=== PATIENT | male | born 1935 | race Caucasian/White ===

== ENCOUNTER 2016-09-21 17:39 | Inpatient (IN) | payer MEDICARE ==
[2016-09-21] MEDS ORDERED: MECLIZINE 25 MG TAB PO STA (18:06)
--- NOTE | 2016-09-21 18:10 | ED ---
General Adult HPI - General Chief complaint: Dizziness Stated complaint: Body Numbness Time Seen by Provider: 09/21/16 17:50 Source: patient, RN notes reviewed Mode of arrival: wheelchair Limitations: no limitations - History of Present Illness Initial comments: This is an 81-year-old male presents emergency department with no significant past medical history. Patient states he was at a restaurant eating and he became very dizzy the room was spinning around in the fall right out of his chair he had grabbed on so he wouldn't fall. Patient states he said his head down on the table. Patient states he has some pressures had though he has had pressure in his head for over a year now. Patient states the pressure seemed a little worse at the time. Patient states became very nauseated with the spinning and eventually vomited times one. Patient states currently he feels better but he still feels a little dizzy. Patient states earlier movement made the dizziness much worse. Patient denies any numbness or weakness. Patient denies any palpitation. Patient denies chest pain. Patient denies difficult breathing or shortness of breath. Patient denies abdominal pain patient denies nausea vomiting or diarrhea. Patient denies any recent fever or chills. - Related Data Home Medications Medication Instructions Recorded Confirmed Omeprazole [Omeprazole] 20 mg PO DAILY 03/24/15 09/21/16 Travoprost [Travatan Z 0.004%] 1 drop BOTH EYES HS 09/21/16 09/21/16 prednisoLONE ACETATE [Prednisolone 1 drop BOTH EYES MO 09/21/16 09/21/16 Acetate] Allergies Allergy/AdvReac Type Severity Reaction Status Date / Time No Known Allergies Allergy Verified 09/21/16 18:22 Review of Systems ROS Statement: Those systems with pertinent positive or pertinent negative responses have been documented in the HPI. ROS Other: All systems not noted in ROS Statement are negative. Past Medical History Past Medical History: GERD/Reflux History of Any Multi-Drug Resistant Organisms: None Reported Past Surgical History: Bowel Resection, Cholecystectomy, Prostate Surgery Past Psychological History: No Psychological Hx Reported Smoking Status: Former smoker Past Alcohol Use History: None Reported Past Drug Use History: None Reported General Exam - General Exam Comments Initial Comments: GENERAL: Patient is well-developed and well-nourished. Patient is nontoxic and well- hydrated and is in mild distress. ENT: Neck is soft and supple. No significant lymphadenopathy is noted. Oropharynx is clear. Moist mucous membranes. Neck has full range of motion without eliciting any pain. EYES: The sclera were anicteric and conjunctiva were pink and moist. Extraocular movements were intact and pupils were equal round and reactive to light. Eyelids were unremarkable. PULMONARY: Unlabored respirations. Good breath sounds bilaterally. No audible rales rhonchi or wheezing was noted. CARDIOVASCULAR: Patient is bradycardic and irregular. ABDOMEN: Soft and nontender with normal bowel sounds. No palpable organomegaly was noted. There is no palpable pulsatile mass. SKIN: Skin is clear with no lesions or rashes and otherwise unremarkable. NEUROLOGIC: Patient is alert and oriented x3. Cranial nerves II through XII are grossly intact. Motor and sensory are also intact. Normal speech, volume and content. Symmetrical smile. Cerebellar exam grossly intact. MUSCULOSKELETAL: Normal extremities with adequate strength and full range of motion. No lower extremity swelling or edema. No calf tenderness. LYMPHATICS: No significant lymphadenopathy is noted PSYCHIATRIC: Normal psychiatric evaluation. Normal interpersonal interactions appears functionally intact in deals appropriately with others. No signs of depression. No signs of anxiety. Limitations: no limitations Course Vital Signs 09/21/16 09/21/16 09/21/16 17:45 19:02 19:10 Temperature 97.2 F L 98.6 F Pulse Rate 70 69 62 Respiratory 20 16 18 Rate Blood Pressure 114/63 121/76 128/70 O2 Sat by Pulse 98 98 97 Oximetry Medical Decision Making - Medical Decision Making EKG shows atrial fibrillation at a rate of 57 bpm QRS is 74 Q-T intervals is 418 QTC is 406. Patient's EKG shows no ST segment elevation or depression or T wave abnormalities are noted Chest x-ray and CT of the brain showed no acute normalities. Patient hasn't had a history of atrial fibrillation before. - Lab Data Result diagrams: 09/21/16 17:15 09/21/16 17:15 Lab Results 09/21/16 09/21/16 09/21/16 Range/Units 17:15 17:15 17:15 WBC 18.9 H (3.8-10.6) k/uL RBC 5.00 (4.30-5.90) m/uL Hgb 14.8 (13.0-17.5) gm/dL Hct 47.0 (39.0-53.0) % MCV 94.1 (80.0-100.0) fL MCH 29.6 (25.0-35.0) pg MCHC 31.5 (31.0-37.0) g/dL RDW 13.4 (11.5-15.5) % Plt Count 124 L (150-450) k/uL Neutrophils % (Manual) 29.0 % Lymphocytes % (Manual) 70.0 % Monocytes % (Manual) 1.0 % Neutrophils # (Manual) 5.5 (1.3-7.7) k/uL Lymphocytes # (Manual) 13.2 H (1.0-4.8) k/uL Monocytes # (Manual) 0.2 (0-1.0) k/uL Nucleated RBCs 0 (0-0) /100 WBC Manual Slide Review Performed RBC Morphology Normal PT (9.0-12.0) sec INR (<1.1) APTT (22.0-30.0) sec Sodium 139 (137-145) mmol/L Potassium 4.5 (3.5-5.1) mmol/L Chloride 105 (98-107) mmol/L Carbon Dioxide 26 (22-30) mmol/L Anion Gap 8 mmol/L BUN 14 (9-20) mg/dL Creatinine 0.88 (0.66-1.25) mg/dL Est GFR (MDRD) Af Amer >60 (>60 ml/min/1.73 sqM) Est GFR (MDRD) Non-Af >60 (>60 ml/min/1.73 sqM) Glucose 125 H (74-99) mg/dL Calcium 9.1 (8.4-10.2) mg/dL Magnesium 2.1 (1.6-2.3) mg/dL Total Bilirubin 1.0 (0.2-1.3) mg/dL AST 35 (17-59) U/L ALT 32 (21-72) U/L Alkaline Phosphatase 82 (38-126) U/L Total Creatine Kinase 150 (55-170) U/L CK-MB (CK-2) 2.1 (0.0-2.4) ng/mL CK-MB (CK-2) Rel Index 1.4 Troponin I <0.012 (0.000-0.034) ng/mL Total Protein 6.1 L (6.3-8.2) g/dL Albumin 3.6 (3.5-5.0) g/dL Urine Color Urine Appearance (Clear) Urine pH (5.0-8.0) Ur Specific Hayes (1.001-1.035) Urine Protein (Negative) Urine Glucose (UA) (Negative) Urine Ketones (Negative) Urine Blood (Negative) Urine Nitrite (Negative) Urine Bilirubin (Negative) Urine Urobilinogen (<2.0) mg/dL Ur Leukocyte Esterase (Negative) 09/21/16 09/21/16 Range/Units 17:15 19:00 WBC (3.8-10.6) k/uL RBC (4.30-5.90) m/uL Hgb (13.0-17.5) gm/dL Hct (39.0-53.0) % MCV (80.0-100.0) fL MCH (25.0-35.0) pg MCHC (31.0-37.0) g/dL RDW (11.5-15.5) % Plt Count (150-450) k/uL Neutrophils % (Manual) % Lymphocytes % (Manual) % Monocytes % (Manual) % Neutrophils # (Manual) (1.3-7.7) k/uL Lymphocytes # (Manual) (1.0-4.8) k/uL Monocytes # (Manual) (0-1.0) k/uL Nucleated RBCs (0-0) /100 WBC Manual Slide Review RBC Morphology PT 11.7 (9.0-12.0) sec INR 1.2 (<1.1) APTT 23.8 (22.0-30.0) sec Sodium (137-145) mmol/L Potassium (3.5-5.1) mmol/L Chloride (98-107) mmol/L Carbon Dioxide (22-30) mmol/L Anion Gap mmol/L BUN (9-20) mg/dL Creatinine (0.66-1.25) mg/dL Est GFR (MDRD) Af Amer (>60 ml/min/1.73 sqM) Est GFR (MDRD) Non-Af (>60 ml/min/1.73 sqM) Glucose (74-99) mg/dL Calcium (8.4-10.2) mg/dL Magnesium (1.6-2.3) mg/dL Total Bilirubin (0.2-1.3) mg/dL AST (17-59) U/L ALT (21-72) U/L Alkaline Phosphatase (38-126) U/L Total Creatine Kinase (55-170) U/L CK-MB (CK-2) (0.0-2.4) ng/mL CK-MB (CK-2) Rel Index Troponin I (0.000-0.034) ng/mL Total Protein (6.3-8.2) g/dL Albumin (3.5-5.0) g/dL Urine Color Colorless Urine Appearance Clear (Clear) Urine pH 6.5 (5.0-8.0) Ur Specific Hayes 1.003 (1.001-1.035) Urine Protein Negative (Negative) Urine Glucose (UA) Negative (Negative) Urine Ketones Negative (Negative) Urine Blood Negative (Negative) Urine Nitrite Negative (Negative) Urine Bilirubin Negative (Negative) Urine Urobilinogen <2.0 (<2.0) mg/dL Ur Leukocyte Esterase Negative (Negative) Disposition Clinical Impression: Atrial fibrillation, Leukocytosis, Vertigo Disposition: ADMITTED IP TO THIS HOSP Referrals: Sahil Acosta MD [Primary Care Provider] - 1-2 days Time of Disposition: 20:14
[2016-09-21 18:36] LABS: CH 30.2; CHCM 32.3; HDW 2.74; HGB 14.8 gm/dL (13.0-17.5); MCH 29.6 pg (25.0-35.0); MCHC 31.5 g/dL (31.0-37.0); MCV 94.1 fL (80.0-100.0); Mean Platelet Volume 7.4; RDW 13.4 % (11.5-15.5); WBC 18.9 k/uL (3.8-10.6); WBC (Perox) 18.15
[2016-09-21 18:46] LABS: ALT 32 U/L (21-72); AST 35 U/L (17-59); Alkaline Phosphatase 82 U/L (38-126); Anion Gap 8 mmol/L; Blood Urea Nitrogen 14 mg/dL (9-20); Calcium 9.1 mg/dL (8.4-10.2); Carbon Dioxide 26 mmol/L (22-30); Chloride 105 mmol/L (98-107); Glucose 125 mg/dL (74-99); Magnesium 2.1 mg/dL (1.6-2.3); Non-African American GFR(MDRD) >60 (>60 ml/min/1.73 sqM); Potassium 4.5 mmol/L (3.5-5.1); Sodium 139 mmol/L (137-145); Total Protein 6.1 g/dL (6.3-8.2)
--- NOTE | 2016-09-21 18:55 | CT ---
EXAMINATION TYPE: CT brain wo con DATE OF EXAM: 09/21/2016 COMPARISON: 07/15/2014 HISTORY: Patient poor historian. Headache. CT DLP: 837.1 mGycm Automated exposure control for dose reduction was used. FINDINGS: Ventricles have normal size. There is no mass effect nor midline shift. There is no sign of intracran ial hemorrhage. The calvarium is intact. IMPRESSION: Negative unenhanced head CT scan. No change.
[2016-09-21 18:56] LABS: Creatine Kinase 150 U/L (55-170)
--- NOTE | 2016-09-21 18:56 | XR ---
EXAMINATION TYPE: XR chest 2V DATE OF EXAM: 09/21/2016 COMPARISON: NONE HISTORY: Chest pain TECHNIQUE: Frontal and lateral views of the chest are obtained. FINDINGS: Heart appears enlarged. There is no heart failure. Lungs are clear of infiltrate. Thoracic aorta is atheromatous. There are chest leads. There is no evidence of pleural effusion. IMPRESSION: Atheromatous aorta. No active cardiopulmonary disease.
[2016-09-21 18:58] LABS: INR 1.2 (<1.1); Partial Thromboplastin Time 23.8 sec (22.0-30.0); Prothrombin Time 11.7 sec (9.0-12.0)
[2016-09-21 19:02] LABS: Add Differential Manual Differential
[2016-09-21 19:04] LABS: Manual Review Performed; Nucleated Red Blood Cells 0 /100 WBC (0-0); RBC Morphology Normal; Total Cells Counted 100
[2016-09-21 19:08] LABS: Creatine Kinase MB 2.1 ng/mL (0.0-2.4); Troponin I <0.012 ng/mL (0.000-0.034)
[2016-09-21 19:28] LABS: Appearance,Urine Clear (Clear); Bilirubin,Urine Negative (Negative); Glucose,Urine (UA) Negative (Negative); Ketones,Urine Negative (Negative); Leukocyte Esterase,Urine Negative (Negative); Nitrite,Urine Negative (Negative); PH, Urine 6.5 (5.0-8.0); Protein,Urine Negative (Negative); Specific Gravity,Urine 1.003 (1.001-1.035); UA Billing (MACRO vs. MICRO) CHEM; Urobilinogen,Urine <2.0 mg/dL (<2.0)
[2016-09-21] MEDS ORDERED: SODIUM CHLORIDE 0.9% 1,000 ML IV ONE (20:43)
[2016-09-21 22:06] VITALS: BMI 21.8
[2016-09-21] MEDS ORDERED: ACETAMINOPHEN TAB 325 MG TAB PO PRN (23:19)
[2016-09-22] MEDS: PANTOPRAZOLE 40 MG TABLET PO SCH (06:20)
[2016-09-22 10:57] LABS: Cholesterol 103 mg/dL (<200); HDL Cholesterol 23 mg/dL (40-60); Triglycerides 54 mg/dL (<150)
--- NOTE | 2016-09-22 10:59 | US ---
EXAMINATION TYPE: US carotid duplex BILAT DATE OF EXAM: 09/22/2016 COMPARISON: CLINICAL HISTORY: Headache/vertigo. Patient states head feels heavy- "like a 10 lb weight is on it". No hx of TIA EXAM MEASUREMENTS: RIGHT: Peak Systolic Velocity (PSV) cm/sec ----- Right CCA: 54.9 ----- Right ICA: 61.0 ----- Right ECA: 58.4 ICA/CCA ratio: 1.1 RIGHT: End Diastole cm/sec ----- Right CCA: 13.9 ----- Right ICA: 13.0 ----- Right ECA: 0.0 LEFT: Peak Systolic Velocity (PSV) cm/sec ----- Left CCA: 62.5 ----- Left ICA: 57.5 ----- Left ECA: 40.5 ICA/CCA ratio: 0.9 LEFT: End Diastole cm/sec ----- Left CCA: 16.2 ----- Left ICA: 13.0 ----- Left ECA: 0.0 VERTEBRALS (direction of flow): Right Vertebral: Antegrade Left Vertebral: Antegrade No significant stenosis or elevated velocities. Plaque seen in right bulb. Bilateral wall thickening. Intimal thickening is present. There is some plaque within the right carotid bulb without flow-limiti ng stenosis. Significant turbulent flow was not evident. IMPRESSION: 1. Minimal plaquing right carotid bulb. Intimal thickening is present bilaterally. No significant aidan w-limiting stenosis is present. Criteria for Assigning % of Stenosis / Diameter reduction (Estimation based on the indirect measurements of the internal carotid artery velocities (ICA PSV). 1. Normal (no stenosis)=ICA PSV < 125 cm/s: ratio < 2.0: ICA EDV<40 cm/s. 2. Less than 50% stenosis=ICA PSV < 125 cm/s: ratio < 2.0: ICA EDV<40 cm/s. 3. 50 to 69% stenosis=ICA PSV of 125 to 230 cm/s: ration 2.0 ? 4.0: ICA EDV 40-100 cm/s. 4. Greater than 70% stenosis to near occlusion= ICA PSV > 230 cm/s: ratio > 4.0: ICA EDV > 100 cm/s. 5. Near occlusion= ICA PSV velocities may be low or undetectable: variable ratio and ICA EDV. 6. Total occlusion=unable to detect flow.
--- NOTE | 2016-09-22 11:12 | P.CRDCN ---
History of Present Illness Consult date: 09/22/16 Reason for Consult (text): atrial fibrillation Chief complaint: headache, dizziness, nausea and vomiting History of present illness: This is an 81-year-old gentleman with no significant past medical history who presented to the emergency department with complaints of headache, dizziness as well as nausea and vomiting. He was eating in a restaurant and became very dizzy and felt the room spinning also had significant head pressure and became nauseous and vomited. On admission computed tomography scan without contrast was negative. EKG on admission showed the patient to be in atrial fibrillation with bradycardia. Patient has no known history of atrial fibrillation and is not on anticoagulation. Return values show an elevated WBC of 18.9 and troponins less than 0.0123, normal renal function. 2-D echo with Doppler shows a normal LV systolic function with an ejection fraction between 55-60%. Upon examination this morning patient complains of severe head pain as well as pain in bilateral ears. Said he had been getting cold sweats at home daily. Denies chest discomfort, palpitations or fever. He has no edema. Past Medical History Past Medical History: Atrial Fibrillation, GERD/Reflux History of Any Multi-Drug Resistant Organisms: None Reported Past Surgical History: Bowel Resection, Cholecystectomy, Prostate Surgery Additional Past Surgical History / Comment(s): Cornea transplant Past Anesthesia/Blood Transfusion Reactions: Postoperative Nausea & Vomiting ( PONV) Additional Past Anesthesia/Blood Transfusion Reaction / Comment(s): Pt states he has endured some nausea/vomiting after anesthesia. Past Psychological History: No Psychological Hx Reported Smoking Status: Never smoker Past Alcohol Use History: None Reported Past Drug Use History: None Reported - Past Family History Father History Unknown: Yes Mother History Unknown: Yes Medications and Allergies Home Medications Medication Instructions Recorded Confirmed Type Omeprazole [Omeprazole] 20 mg PO DAILY 03/24/15 09/21/16 History Travoprost [Travatan Z 0.004%] 1 drop BOTH EYES HS 09/21/16 09/21/16 History prednisoLONE ACETATE [Prednisolone 1 drop BOTH EYES MO 09/21/16 09/21/16 History Acetate] Allergies Allergy/AdvReac Type Severity Reaction Status Date / Time No Known Allergies Allergy Verified 09/21/16 18:22 Physical Exam Vitals: Vital Signs Temp Pulse Pulse Resp BP BP Pulse Ox 09/22/16 08:00 97.0 F L 48 L 18 93/53 97 09/22/16 03:09 97 F L 48 L 18 115/58 97 09/22/16 00:00 97.1 F L 65 18 128/84 97 09/21/16 21:38 97 F L 62 18 126/62 98 09/21/16 20:53 98.3 F 57 L 18 117/60 98 09/21/16 19:10 98.6 F 62 18 128/70 97 09/21/16 19:02 69 16 121/76 98 09/21/16 17:45 97.2 F L 70 20 114/63 98 Intake and Output 09/21/16 09/22/16 09/22/16 22:59 06:59 14:59 Intake Total 900 Output Total 800 Balance 100 Intake: Intake, IV Titration 900 Amount Sodium Chloride 0.9% 1, 900 000 ml @ 100 mls/hr IV . Q10H ONE Rx#:[id number] Output: Urine 800 Other: Voiding Method Toilet Urinal # Voids 1 Weight 67.132 kg 65.7 kg PHYSICAL EXAMINATION: HEENT: Head is atraumatic, normocephalic. Able to assess pupils this patient is uncooperative with exam due to headache Neck is supple. There is no elevated jugular venous pressure. HEART EXAMINATION: Heart sounds irregularly irregular, S1 and S2 normal. No murmur or gallop heard. CHEST EXAMINATION: Lungs are clear to auscultation and precussion. No chest wall tenderness is noted on palpation or with deep breathing. ABDOMEN: Soft, nontender. Bowel sounds are heard. No organomegaly noted. EXTREMITIES: 2+ peripheral pulses with no evidence of peripheral edema and no calf tenderness noted. NEUROLOGIC patient is awake, alert and oriented x3. Restless, crying . Results 09/22/16 05:54 09/21/16 17:15 Cardiac Enzymes 09/21/16 09/21/16 09/21/16 Range/Units 17:15 17:15 23:13 AST 35 (17-59) U/L CK-MB (CK-2) 2.1 (0.0-2.4) ng/mL Troponin I <0.012 <0.012 (0.000-0.034) ng/mL 09/22/16 Range/Units 05:54 AST (17-59) U/L CK-MB (CK-2) (0.0-2.4) ng/mL Troponin I <0.012 (0.000-0.034) ng/mL Coagulation 09/21/16 Range/Units 17:15 PT 11.7 (9.0-12.0) sec APTT 23.8 (22.0-30.0) sec CBC 09/21/16 Range/Units 17:15 WBC 18.9 H (3.8-10.6) k/uL RBC 5.00 (4.30-5.90) m/uL Hgb 14.8 (13.0-17.5) gm/dL Hct 47.0 (39.0-53.0) % Plt Count 124 L (150-450) k/uL Comprehensive Metabolic Panel 09/21/16 Range/Units 17:15 Sodium 139 (137-145) mmol/L Potassium 4.5 (3.5-5.1) mmol/L Chloride 105 (98-107) mmol/L Carbon Dioxide 26 (22-30) mmol/L BUN 14 (9-20) mg/dL Creatinine 0.88 (0.66-1.25) mg/dL Glucose 125 H (74-99) mg/dL Calcium 9.1 (8.4-10.2) mg/dL AST 35 (17-59) U/L ALT 32 (21-72) U/L Alkaline Phosphatase 82 (38-126) U/L Total Protein 6.1 L (6.3-8.2) g/dL Albumin 3.6 (3.5-5.0) g/dL Current Medications Generic Name Dose Route Start Last Admin Trade Name Berryq PRN Reason Stop Dose Admin Acetaminophen 650 mg 09/21/16 23:19 09/21/16 23:39 Tylenol Tab PO 325 mg Q6HR PRN Administration Fever and/ or Pain Non-Formulary Medication 1 drop 09/22/16 21:00 Travoprost [Travatan Z 0.004%] BOTH EYES HS DEMAR Pantoprazole Sodium 40 mg 09/22/16 07:30 09/22/16 06:20 Protonix PO 40 mg [id number] DEMAR Administration Intake and Output 09/21/16 09/22/16 09/22/16 22:59 06:59 14:59 Intake Total 900 Output Total 800 Balance 100 Intake: Intake, IV Titration 900 Amount Sodium Chloride 0.9% 1, 900 000 ml @ 100 mls/hr IV . Q10H ONE Rx#:[id number] Output: Urine 800 Other: Voiding Method Toilet Urinal # Voids 1 Weight 67.132 kg 65.7 kg 09/21/16 17:15 09/21/16 17:15 EKG Interpretations (text) A fibrillation with bradycardia Assessment and Plan Plan: Assessment and plan #1 leukocytosis #2 atrial fibrillation with bradycardia, newly diagnosed likely persistent #3 dizziness with nausea and vomiting #4 headache On cardiology's perspective, we will obtain TSH. We recommend patient start anticoagulation but will await input from neurology. In the mean time we will check patient's coverage for Eliquis. Further recommendations to follow. FACILITIES MAINTENANCE ENGINEER note has been reviewed, I agree with a documented findings and plan of care. Patient was seen and examined.
--- NOTE | 2016-09-22 11:15 | ECHOF ---
Referral Reason:Headache/Vertigo MEASUREMENTS -------- HEIGHT: 175.3 cm WEIGHT: 67.1 kg BP: 115/58 IVSd: 0.9 cm (0.6 - 1.1) LVIDd: 4.1 cm (3.9 - 5.3) LVPWd: 1.3 cm (0.6 - 1.1) IVSs: 1.2 cm LVIDs: 2.8 cm LVPWs: 1.4 cm Ao Diam: 3.7 cm (2.0 - 3.7) AV Cusp: 1.6 cm (1.5 - 2.6) LA Diam: 3.2 cm (2.7 - 3.8) MV EXCURSION: 13.189 mm (> 18.000) MV EF SLOPE: 65 mm/s (70 - 150) EPSS: 0.9 cm MV E Reji: 0.99 m/s MV DecT: 221 ms MV A Reji: 0.30 m/s MV E/A Ratio: 3.34 AR PHT: 421 ms RAP: 5.00 mmHg RVSP: 33.51 mmHg FINDINGS -------- Resting bradycardia (HR<60bpm). This was a technically good study. There is borderline concentric left ventricular hypertrophy. Overall left ventricular systolic function is normal with, an EF between 55 - 60 %. The right ventricle is normal in size and function. The left atrium is normal in size. The right atrium is normal in size. Aortic valve is trileaflet and is mildly thickened. There is mild aortic regurgitation. The mitral valve leaflets are mildly thickened. Mild mitral annular calcification present. There is trace mitral regurgitation. Mild tricuspid regurgitation present. The right ventricular systolic pressure, as measured by Doppler, is 33.51mmHg. Pulmonic valve appears structurally normal. The aortic root size is normal. The pericardium is normal. CONCLUSIONS -------- 1. Resting bradycardia (HR<60bpm). 2. The mitral valve leaflets are mildly thickened. 3. Mild mitral annular calcification present. 4. There is trace mitral regurgitation. 5. Mild tricuspid regurgitation present. 6. The right ventricular systolic pressure, as measured by Doppler, is 33.51mmHg. 7. Pulmonic valve appears structurally normal. 8. The aortic root size is normal. 9. The pericardium is normal. 10. This was a technically good study. 11. There is borderline concentric left ventricular hypertrophy. 12. Overall left ventricular systolic function is normal with, an EF between 55 - 60 %. 13. The right ventricle is normal in size and function. 14. The left atrium is normal in size. 15. The right atrium is normal in size. 16. Aortic valve is trileaflet and is mildly thickened. 17. There is mild aortic regurgitation. SHOWER ENCLOSURE INSTALLER: Helen Guerra RDCS
[2016-09-22 11:22] LABS: CH 30.2; CHCM 32.6; HCT 41.9 % (39.0-53.0); HDW 2.88; HGB 13.6 gm/dL (13.0-17.5); MCH 30.1 pg (25.0-35.0); MCHC 32.3 g/dL (31.0-37.0); MCV 93.2 fL (80.0-100.0); Mean Platelet Volume 7.6; RDW 13.2 % (11.5-15.5); WBC 15.3 k/uL (3.8-10.6); WBC (Perox) 15.45
--- NOTE | 2016-09-22 11:43 | CT ---
EXAMINATION TYPE: CT brain wo con DATE OF EXAM: 09/22/2016 COMPARISON: 09/21/2016 INDICATION: Severe MAJANO DLP: 1126 mGycm, Automated exposure control for dose reduction was used. CONTRAST: None CT of the brain is performed utilizing 3 mm thick sections through the posterior fossa and 3 mm thick sections through the remaining calvarium. Study is performed within 24 hours of arrival to the hosp [facility]. No abnormal hyperdensity is present to suggest an acute intracranial hemorrhage. No mass lesion is evident. No acute infarcts are evident. Ventricles and sulci are appropriate for the patient age. Paranasal sinuses and mastoid air cells within the [id number] are clear. IMPRESSIONS: 1. No acute or subacute change is evident.
--- NOTE | 2016-09-22 12:12 | P.PN ---
Progress Note - Text This is an addendum to the dictated cardiology consultation. The patient presents with severe headache associated yesterday with dizziness, nausea and vomiting and he was noted to be in atrial fibrillation upon admission. He does not feel the palpitations and he is not aware of the diagnosis in the past although he exercise on a regular basis and when he checks his pulse he found that he is skipping beats at times. He denies any change in his energy or breathing. He had prior episodes of headache according to him and has been evaluated in the past by Dr. Tan although his workup is not available to me at this point. He had a recent cough and he felt sweaty for the last few nights although he does not describe any change in mental status or confusion. On his physical examination his lungs are clear, he is in atrial fibrillation with controlled ventricular response and he has no neck rigidity. His echocardiogram showed a normal systolic function with no significant valvular disease. His atrial is newly diagnosed but may not be new onset. The patient would require anticoagulation to reduce his thromboembolic risk but I will await the input of the neurology service prior to initiate the treatment. Thank you for this consult we will follow with you.
[2016-09-22 12:37] LABS: Add Differential Manual Differential
[2016-09-22 12:39] LABS: Nucleated Red Blood Cells 0 /100 WBC (0-0); Total Cells Counted 200
--- NOTE | 2016-09-22 14:56 | P.HPIM ---
History of Present Illness H&P Date: 09/22/16 81-year-old male whose primary care provider Dr. Zheng presented on the day of admission to the emergency room to be evaluated for dizziness room spinning with a pressure sensation in his head. Patient denied any neck rigidity Patient stated the incident occurred when he was at a restaurant eating he felt the room was spinning around felt like he could fall out of his chair if he did not grab on something. Patient stated he had significant pressure in his head. Patient stated it felt like of band around his head. He stated he was not experiencing any photosensitivity to light or blurred vision He became nauseated with the spinning did vomit. Patient stated he has not had prior episodes like this became concerned and came into the emergency room to be evaluated. Patient denied any numbness or tingling sensation denied any shortness of breath or chest pain when questioning. Patient states he is normally an active individual and has not been sick or hospitalized recently. Patient states he seen his PCP last in the office felt 3-4 months ago. Patient gives no significant past medical history when questioning. Patient states not diabetic does not have high blood pressure. Patient states he has not been bothered by a headache this severe in the past does not have a history of migraines when questioning patient states several years ago and cannot remember the timing of the event that he did see a neurologist Dr. Tan for a headache but is not been back because he has not been bothered by headaches like this patient was seen in the emergency room to have a CAT scan of the brain which was a negative unenhanced head CT scan. In the emergency room patient's 12- lead EKG did show atrial fibrillation heart rate 57. Chest x-ray was unremarkable. According to the patient he has not been told he had an irregular heart rhythm. Patient denies experiencing any heart palpitations when questioning the white count in the emergency room was elevated 18.9. Platelet count 124 Subsequently the patient was admitted to the services of the attending with a cardiology neurology consultation requested Patient currently is resting in bed stating experiencing an intolerable headache patient's crying because of the pain patient denies any neck rigidity. Patient states he cannot tolerate the pain pressure sensation in his head. A repeat CAT scan done this morning shows no acute change a negative computed tomography scan graft patient did have an echocardiogram done that shows left ventricular systolic function normal EF between 55 and 60%. Carotid Doppler studies no significant carotid stenosis noted Review of Systems Essentially unremarkable except as mentioned in the present illness Past Medical History Past Medical History: Atrial Fibrillation, GERD/Reflux History of Any Multi-Drug Resistant Organisms: None Reported Past Surgical History: Bowel Resection, Cholecystectomy, Prostate Surgery Additional Past Surgical History / Comment(s): Cornea transplant Past Anesthesia/Blood Transfusion Reactions: Postoperative Nausea & Vomiting ( PONV) Additional Past Anesthesia/Blood Transfusion Reaction / Comment(s): Pt states he has endured some nausea/vomiting after anesthesia. Past Psychological History: No Psychological Hx Reported Smoking Status: Never smoker Past Alcohol Use History: None Reported Past Drug Use History: None Reported - Past Family History Father History Unknown: Yes Mother History Unknown: Yes Medications and Allergies Home Medications Medication Instructions Recorded Confirmed Type Omeprazole [Omeprazole] 20 mg PO DAILY 03/24/15 09/21/16 History Travoprost [Travatan Z 0.004%] 1 drop BOTH EYES HS 09/21/16 09/21/16 History prednisoLONE ACETATE [Prednisolone 1 drop BOTH EYES MO 09/21/16 09/21/16 History Acetate] Allergies Allergy/AdvReac Type Severity Reaction Status Date / Time No Known Allergies Allergy Verified 09/21/16 18:22 Physical Exam Vitals: Vital Signs Temp Pulse Pulse Resp BP BP Pulse Ox 09/22/16 12:00 96.0 F L 54 L 18 110/57 98 09/22/16 08:00 97.0 F L 48 L 18 93/53 97 09/22/16 03:09 97 F L 48 L 18 115/58 97 09/22/16 00:00 97.1 F L 65 18 128/84 97 09/21/16 21:38 97 F L 62 18 126/62 98 09/21/16 20:53 98.3 F 57 L 18 117/60 98 09/21/16 19:10 98.6 F 62 18 128/70 97 09/21/16 19:02 69 16 121/76 98 09/21/16 17:45 97.2 F L 70 20 114/63 98 Intake and Output 09/21/16 09/22/16 09/22/16 22:59 06:59 14:59 Intake Total 900 800 Output Total 800 Balance 100 800 Intake: IV 800 Sodium Chloride 0.9% 1, 800 000 ml @ 100 mls/hr IV . Q10H ONE Rx#:[id number] Intake, IV Titration 900 Amount Sodium Chloride 0.9% 1, 900 000 ml @ 100 mls/hr IV . Q10H ONE Rx#:[id number] Output: Urine 800 Other: Voiding Method Toilet Urinal # Voids 1 1 Weight 67.132 kg 65.7 kg GENERAL APPEARANCE: 81-year-old male patient is alert, oriented, currently crying states he cannot tolerate the pressure sensation in his head is not light sensitive VITAL SIGNS: Reviewed HEENT: Head is normocephalic and atraumatic. Pupils are equal and reactive. The nares are patent. Oropharynx is clear without lesions. NECK: Supple without lymphadenopathy. Traches midline. HEART: S1, S2. Irregular monitor atrial fibrillation heart rate in the 50s to 40s no murmur noted currently denying chest pain denies sensation of heart palpitation LUNGS: No crackles or wheezes are heard. Adequate air movement bilaterally on room air ABDOMEN: Soft, nontender, nondistended with good bowel sounds. No peritoneal signs. No palpable organomegaly or masses. EXTREMITIES: Normal skin color and turgor. No cyanosis, rash, ulceration, clubbing or edema. Radial pedal pulses are 2/4 bilaterally. NEUROLOGICAL: No focal deficits. Strength and sensation are grossly intact. Results CBC & Chem 7: 09/22/16 05:54 09/21/16 17:15 Labs: Abnormal Lab Results - Last 24 Hours (Table) 09/21/16 09/21/16 09/22/16 Range/Units 17:15 17:15 05:54 WBC 18.9 H (3.8-10.6) k/uL Plt Count 124 L (150-450) k/uL Lymphocytes # (Manual) 13.2 H (1.0-4.8) k/uL Glucose 125 H (74-99) mg/dL Total Protein 6.1 L (6.3-8.2) g/dL HDL Cholesterol 23 L (40-60) mg/dL 09/22/16 Range/Units 05:54 WBC 15.3 H (3.8-10.6) k/uL Plt Count 109 L (150-450) k/uL Lymphocytes # (Manual) 13.3 H (1.0-4.8) k/uL Glucose (74-99) mg/dL Total Protein (6.3-8.2) g/dL HDL Cholesterol (40-60) mg/dL Microbiology - Last 24 Hours (Table) 09/22/16 02:25 Urine Culture - Preliminary Urine,Clean Catch Thrombosis Risk Factor Assmnt - Choose All That Apply Any of the Below Risk Factors Present?: Yes Each Factor Represents 1 point: Varicose veins Other Risk Factors: Yes Each Risk Factor Represents 3 Points: Age 75 years or older Thrombosis Risk Factor Assessment Total Risk Factor Score: 4 Thrombosis Risk Factor Assessment Level: Moderate Risk Assessment and Plan Plan: Impression Present on admission dizziness lightheadedness severe headache pressure sensation unclear etiology Present on admission atrial fibrillation heart rate in the 40s 50s newly diagnosed but may not be a new onset age indeterminant Present on admission leukocytosis suspect reactive Present on admission nausea vomiting with dizziness unclear etiology Echocardiogram September 22 left ventricular systolic function normal EF between 55 and 60% Carotid Doppler studies no significant carotid stenosis Plan Continue with record patient's by cardiology service anticipate anticoagulation if okay with neurology service Follow up on the pending MRA Await neurology's input currently pending Follow-up on pending labs PT OT eval Fall precautions DVT and GI prophylaxis Further recommendations pending IV fluid at 100 and hour The above dictated assessment and findings were discussed with dr zheng Impression and the plan of care have been dictated as directed. Vidhya Rivera nurse practitioner acting as a scribe for dr zheng
--- NOTE | 2016-09-22 17:14 | HP ---
DATE OF ADMISSION: 09/21/2016 CHIEF COMPLAINT: Lightheadedness, dizziness, slightly slurred speech, ataxia, and numbness in his feet. HISTORY OF PRESENT ILLNESS: This is the first admission for this 81-year-old otherwise healthy white male. He presented to the office with the above-mentioned complaints. He states stated that he started to stand up and noticed that both his feet felt "tingling and then numb". He stated he was having difficulty walking. Today he was breaking out in a cold sweat. This has been going on for several days. He denied any fever, chills, cough, urinary complaints, abdominal pain, chest pain or shortness of breath, orthopnea, fever, chills, etc. In the office he was evaluated by an EKG which demonstrated atrial fibrillation with a slow ventricular response which he has had in the past, which is chronic. There are no ST segment or T-wave changes. There is no other abnormality. Neurologically he seemed to be intact. He was also complaining of a "fullness" in the top of his head. He had no visual or hearing changes. Decision was made that this could represent cerebrovascular insufficiency or another abnormality. Decision was made to admit him. He was admitted with a diagnosis of TIA. The hospital was contacted and we were told that he could not be a direct admit and had to go through the emergency room. He went to the emergency room where he was delayed for 3 to 4 hours before I was called by the emergency room physician who was going to send him home. REVIEW OF SYSTEMS: He has had no other complaints or problems. He has had no incontinence, urinary or bowel history, renal problems, et cetera. He has been in good health. His was recently diagnosed as being treated for breast cancer and it is wondered if some of this could be due to anxiety and depression. Past Medical history, family history, personal and social histories reveal that he is only on omeprazole and he takes Travatan drops for glaucoma. He is not allergic to any medication. He has had cholecystectomy and herniorrhaphy. He once had hemigastrectomy for ulcer disease. He does not drink and he does not smoke. PHYSICAL EXAMINATION: VITAL SIGNS: Blood pressure 124/70 with a pulse of 66 and quite regular, respirations 14. He is afebrile. GENERAL: Appeared to ( ) well-developed, well-nourished in no acute distress. He seemed a little bit slower than usual and seemed to be having a little bit of difficulty speaking. HEENT: Head, ears, eyes, nose, mouth, and throat were normal. Gaze is conjugate and pupils equal and round. Carotids are normal. There are no bruits. NECK: Neck veins not distended. Chest is clear. Cardiac exam demonstrated fairly regular rhythm with no S3 or S4. There are no murmurs. Abdomen soft and nontender without visceromegaly or masses. EXTREMITIES: Normal. There is no edema. NEUROLOGIC: Intact. Cranial nerves are intact 2 thru 12 and sensorimotor exam is also normal. Toes are downgoing. He is admitted to the hospital with diagnoses: 1. Nonspecific neurologic symptoms suggestive of possible cerebrovascular insufficiency. 2. History of gastroesophageal reflux disease. 3. Glaucoma. 4. Atrial fibrillation (old). PLAN: 1. Bed rest. 2. IV fluids. 3. Serial EKGs and enzymes. 4. CT of the brain with contrast. 5. MRA and MRI with gadolinium.
--- NOTE | 2016-09-22 17:40 | PN ---
DATE OF SERVICE: 09/22/2016 CHIEF COMPLAINT: Weakness, lightheadedness, and unsteadiness. HISTORY OF PRESENT ILLNESS: This gentleman it still complaining of the same symptoms that he came in with. He is also complaining of pressure and pain in the top of his head. He has had no neurologic signs or symptoms. PHYSICAL EXAMINATION: NECK: Supple. Chest is clear. Cardiac exam is unchanged. Abdomen soft, nontender. IMPRESSION: 1. Headache with pain and pressure on the top of the head. 2. Ataxia. PLAN: 1. CT without and with contrast will be repeated. 2. We will wait his MRI and MRA with Gadolinium. 3. Neurology consult.
--- NOTE | 2016-09-22 18:07 | PN ---
DATE OF SERVICE: 09/22/2016 During the night, the patient's ventricular response rate ( ) atrial fibrillation dropped to 30 beats a minute. Cardiology will evaluate his case.
--- NOTE | 2016-09-22 20:08 | MR ---
EXAMINATION TYPE: MR angio head wo con DATE OF EXAM: 09/22/2016 COMPARISON: NONE HISTORY: Dizziness, headache TECHNIQUE: Time of flight images focusing on the [place] of [place] were performed without contrast. FINDINGS: There is arterial flow in the anterior middle and posterior cerebral arteries. There is art erial flow in the vertebrobasilar artery system. Right vertebral artery is larger than the left. Basi lar artery fills mostly from the right side. The right posterior cerebral artery appears to fill most ly through the posterior communicating artery. There is a large right posterior communicating artery. There is a diminutive left posterior communicating artery. I see no evidence of stenosis. I see no a neurysm or neovascularity. There is no mass effect. IMPRESSION: Negative MR angiogram of the brain.
[2016-09-22] MEDS ORDERED: MECLIZINE 12.5 MG TAB PO PRN (20:50)
[2016-09-22] MEDS: traZODone HCL 50 MG TAB PO SCH (22:06)
[2016-09-22] MEDS: NON-FORMULARY DRUG (Travoprost [Travatan Z 0.004%] 1 DROP) BOTH EYES SCH (22:06)
[2016-09-23 06:22] LABS: Basophils # (A) 0.1 k/uL (0-0.2); Basophils % (A) 1 %; CHCM 32.1; Eosinophils # (A) 0.1 k/uL (0-0.7); Eosinophils % (A) 1 %; HDW 2.76; HGB 13.4 gm/dL (13.0-17.5); Luc # (Auto) 0.53; Luc % (Auto) 3; Lymphocytes # (A) 13.9 k/uL (1.0-4.8); Lymphocytes % (A) 81 %; MCH 30.7 pg (25.0-35.0); MCHC 32.7 g/dL (31.0-37.0); MCV 93.9 fL (80.0-100.0); Mean Platelet Volume 7.3; Monocytes # (A) 0.3 k/uL (0-1.0); Monocytes % (A) 2 %; Neutrophils # (A) 2.4 k/uL (1.3-7.7); Neutrophils % (A) 14 %; RBC 4.37 m/uL (4.30-5.90); RDW 13.6 % (11.5-15.5); WBC 17.2 k/uL (3.8-10.6); WBC (Perox) 17.15
[2016-09-23 06:50] LABS: Manual Review Performed
[2016-09-23] MEDS: PANTOPRAZOLE 40 MG TABLET PO SCH (07:30)
[2016-09-23 13:23] LABS: Hemoglobin A1C 5.6 % (4.2-6.1)
--- NOTE | 2016-09-23 14:27 | P.DS ---
Providers Date of admission: 09/21/16 20:43 Expected date of discharge: 09/23/16 Attending physician: Sahil Acosta Consults: 09/22/16 09:12 Consult Physician Urgent Consulting Provider: Ar Reddy Consult Reason/Comments: afib Do you want consulting provider notified?: Yes 09/22/16 09:13 Consult Physician Urgent Consulting Provider: Mindi Epps Consult Reason/Comments: ?tia Do you want consulting provider notified?: Yes Primary care physician: Sahil Acosta Hospital Course: 81-year-old male whose primary care provider Dr. Acosta presented on the day of admission to the emergency room to be evaluated for dizziness room spinning with a pressure sensation in his head. Patient denied any neck rigidity Patient stated the incident occurred when he was at a restaurant eating he felt the room was spinning around felt like he could fall out of his chair if he did not grab on something. Patient stated he had significant pressure in his head. Patient stated it felt like of band around his head. He stated he was not experiencing any photosensitivity to light or blurred vision He became nauseated with the spinning did vomit. Patient stated he has not had prior episodes like this became concerned and came into the emergency room to be evaluated. Patient denied any numbness or tingling sensation denied any shortness of breath or chest pain when questioning. Patient states he is normally an active individual and has not been sick or hospitalized recently. Patient states he seen his PCP last in the office felt 3-4 months ago. Patient gives no significant past medical history when questioning. Patient states not diabetic does not have high blood pressure. Patient states he has not been bothered by a headache this severe in the past does not have a history of migraines when questioning patient states several years ago and cannot remember the timing of the event that he did see a neurologist Dr. Tan for a headache but is not been back because he has not been bothered by headaches like this patient was seen in the emergency room to have a CAT scan of the brain which was a negative unenhanced head CT scan. In the emergency room patient's 12- lead EKG did show atrial fibrillation heart rate 57. Chest x-ray was unremarkable. According to the patient he has not been told he had an irregular heart rhythm. Patient denies experiencing any heart palpitations when questioning the white count in the emergency room was elevated 18.9. Platelet count 124 Subsequently the patient was admitted to the services of the attending with a cardiology neurology consultation requested Patient currently is resting in bed stating experiencing an intolerable headache patient's crying because of the pain patient denies any neck rigidity. Patient states he cannot tolerate the pain pressure sensation in his head. A repeat CAT scan done this morning shows no acute change a negative computed tomography scan graft patient did have an echocardiogram done that shows left ventricular systolic function normal EF between 55 and 60%. Carotid Doppler studies no significant carotid stenosis noted MRA of the brain without contrast done on September 22 was a negative study The day of discharge patient was up ambulating in the room in the hallway. Patient denied headache. Denied any dizziness lightheadedness. The heart monitor continued to show atrial fibrillation heart rate with activity would go up to 60 at rest heart rate was in the 40s. Patient denied chest pain. no Heart palpitations. Cardiology recommends the patient be started on anticoagulation all requests 2.5 twice a day to reduce his thromboembolic risk. Impression Present on admission dizziness lightheadedness severe headache pressure sensation unclear etiology Present on admission atrial fibrillation heart rate in the 40s 50s newly diagnosed but may not be a new onset age indeterminant Present on admission leukocytosis suspect reactive Present on admission nausea vomiting with dizziness unclear etiology Echocardiogram September 22 left ventricular systolic function normal EF between 55 and 60% Carotid Doppler studies no significant carotid stenosis The above dictated assessment and findings were discussed with dr norm Cullen and the plan of care have been dictated as directed. Vidhya Rivera nurse practitioner acting as a scribe for dr acosta Plan - Discharge Summary New Discharge Prescriptions: New Apixaban [Eliquis] 2.5 mg PO BID #60 tab No Action Omeprazole [Omeprazole] 20 mg PO DAILY Travoprost [Travatan Z 0.004%] 1 drop BOTH EYES HS prednisoLONE ACETATE [Prednisolone Acetate] 1 drop BOTH EYES MO Discharge Medication List Omeprazole [Omeprazole] 20 mg PO DAILY 03/24/15 [History] Travoprost [Travatan Z 0.004%] 1 drop BOTH EYES HS 09/21/16 [History] prednisoLONE ACETATE [Prednisolone Acetate] 1 drop BOTH EYES MO 09/21/16 [ History] Apixaban [Eliquis] 2.5 mg PO BID #60 tab 09/23/16 [Rx] Follow up Appointment(s)/Referral(s): Sahil Acosta MD [Primary Care Provider] - 1-2 days Ar Reddy MD [STAFF PHYSICIAN] - 1 Week Activity/Diet/Wound Care/Special Instructions: *lathe set up person Eliquis from [facility] at time of discharge
--- NOTE | 2016-09-23 15:36 | P.PN ---
Subjective Principal diagnosis: Atrial fibrillation This is a pleasant 81-year-old gentleman who initially presented to the hospital with symptoms of headache with associated dizziness and spinning. He was found to be in atrial fibrillation with a slow ventricular response. Recommendation is to start the patient on Eliquis 2-1/2 mg one tablet by mouth twice a day if it is okay with neurology. Overall from cardiology standpoint patient may be able to be discharged home today, and a follow-up appointment will be made in the office to see Dr. Reddy. Objective - Vital Signs Vital signs: Vital Signs Temp 96.8 F L 09/23/16 12:00 Pulse 67 09/23/16 12:00 Resp 18 09/23/16 12:00 BP 116/80 09/23/16 12:00 Pulse Ox 96 09/23/16 12:00 Intake & Output 09/22/16 09/23/16 09/23/16 18:59 06:59 18:59 Intake Total 1000 100 Balance 1000 100 Intake: IV 800 Sodium Chloride 0.9% 1, 800 000 ml @ 100 mls/hr IV . Q10H ONE Rx#:[id number] Oral 200 100 Other: Voiding Method Toilet Urinal # Voids 1 500 - Exam PHYSICAL EXAMINATION: HEENT: Head is atraumatic, normocephalic. Pupils equal, round. Neck is supple. There is no elevated jugular venous pressure. HEART EXAMINATION: Heart S1, S2 normal. No murmur or gallop heard. CHEST EXAMINATION: Lungs are clear to auscultation and precussion. No chest wall tenderness is noted on palpation or with deep breathing. ABDOMEN: Soft, nontender. Bowel sounds are heard. No organomegaly noted. EXTREMITIES: 2+ peripheral pulses with no evidence of peripheral edema and no calf tenderness noted. NEUROLOGIC patient is awake, alert and oriented -3. . - Labs CBC & Chem 7: 09/23/16 05:42 09/21/16 17:15 Labs: Abnormal Lab Results - Last 24 Hours (Table) 09/23/16 Range/Units 05:42 WBC 17.2 H (3.8-10.6) k/uL Plt Count 110 L (150-450) k/uL Lymphocytes # 13.9 H (1.0-4.8) k/uL Microbiology - Last 24 Hours (Table) 09/22/16 02:25 Urine Culture - Final Urine,Clean Catch 09/21/16 23:13 Blood Culture - Preliminary Blood No Growth after 24 hours 09/21/16 23:13 Blood Culture - Preliminary Blood No Growth after 24 hours Assessment and Plan (1) Chronic a-fib Status: Acute (2) Dizziness Status: Acute (3) Head ache Status: Acute (4) Leukocytosis Status: Acute Plan: From cardiology's perspective, patient may be able to be discharged home today. A follow-up appointment will be made with Dr. Reddy in the office post discharge. Patient has been recommended to be discharged home on Eliquis 2-1/2 mg one tablet by mouth twice a day if okay with neurology. DNP note has been reviewed, I agree with a documented findings and plan of care. Patient was seen and examined.
--- NOTE | 2016-09-23 18:53 | P.CONS ---
History of Present Illness - Reason for Consult Consult date: 09/23/16 Vertigo and dizziness - History of Present Illness This pleasant 81-year-old male being evaluated by the neurology service for an episode of vertigo. On the day of admission he presented to the [facility] emergency room with some dizziness and room spinning. He also had a pressure sensation in his head. He denied any head injury or recent illness. He did experience some nausea that accompanied the vertigo sensation. Since that 1 episode he has had no further episodes of vertigo but continues to have some intermittent mild lightheadedness/dizziness. He said he had seen a neurologist, namely Dr. Tan, for headache in the past but this has not been a problem lately. In the emergency room she showed atrial fibrillation with a heart rate of 57. He has no known diagnosis paper atrial fibrillation. Computed tomography scan of the brain was negative MRA of the brain was negative. Carotid Doppler showed no significant hemodynamically snug against stenosis. At the time of my exam he is sitting up at his bedside resting comfortably conversing with his family. He is in no distress. Review of Systems All systems: negative Past Medical History Past Medical History: Atrial Fibrillation, GERD/Reflux History of Any Multi-Drug Resistant Organisms: None Reported Past Surgical History: Bowel Resection, Cholecystectomy, Prostate Surgery Additional Past Surgical History / Comment(s): Cornea transplant Past Anesthesia/Blood Transfusion Reactions: Postoperative Nausea & Vomiting ( PONV) Additional Past Anesthesia/Blood Transfusion Reaction / Comm: Pt states he has endured some nausea/vomiting after anesthesia. Past Psychological History: No Psychological Hx Reported Smoking Status: Never smoker Past Alcohol Use History: None Reported Past Drug Use History: None Reported - Past Family History Father History Unknown: Yes Mother History Unknown: Yes Medications and Allergies Home Medications Medication Instructions Recorded Confirmed Type Omeprazole [Omeprazole] 20 mg PO DAILY 03/24/15 09/21/16 History Travoprost [Travatan Z 0.004%] 1 drop BOTH EYES HS 09/21/16 09/21/16 History prednisoLONE ACETATE [Prednisolone 1 drop BOTH EYES MO 09/21/16 09/21/16 History Acetate] Allergies Allergy/AdvReac Type Severity Reaction Status Date / Time No Known Allergies Allergy Verified 09/21/16 18:22 Physical Exam Vitals: Vital Signs Temp Pulse Resp BP Pulse Ox 09/23/16 16:00 97.5 F L 69 18 114/58 96 09/23/16 12:00 96.8 F L 67 18 116/80 96 09/23/16 08:00 96.0 F L 71 18 108/56 97 09/23/16 04:00 97.6 F 50 L 18 127/86 92 L 09/23/16 00:00 97.9 F 51 L 17 117/65 96 09/22/16 20:00 98.0 F 44 L 18 126/69 99 Intake and Output 09/23/16 09/23/16 09/23/16 06:59 14:59 22:59 Intake Total 300 Balance 300 Intake: Oral 300 Other: Voiding Method Toilet Urinal # Voids 500 - Constitutional General appearance: cooperative, no acute distress, thin - EENT Eyes: no abnormal pupil, EOMI, PERRLA, no ptosis ENT: hard of hearing - Neck Neck: normal ROM, no rigidity - Respiratory Respiratory: negative: prolonged expiration, prolonged inspiration - Cardiovascular Rhythm: irregularly irregular - Gastrointestinal General gastrointestinal: no distended, no tenderness - Neurologic Patient is alert awake and oriented 3. Speech-language are normal. There is no facial asymmetry. Cranial nerves II through XII are intact globally. There is no nystagmus. There is no dysmetria. No pronator drift. Strength is full in bilateral upper lower extremities. There is no sensory deficit. No tremors or seizure-like activities are seen. Results CBC & Chem 7: 09/23/16 05:42 09/21/16 17:15 Labs: Abnormal Lab Results - Last 24 Hours (Table) 09/23/16 Range/Units 05:42 WBC 17.2 H (3.8-10.6) k/uL Plt Count 110 L (150-450) k/uL Lymphocytes # 13.9 H (1.0-4.8) k/uL Microbiology - Last 24 Hours (Table) 09/22/16 02:25 Urine Culture - Final Urine,Clean Catch 09/21/16 23:13 Blood Culture - Preliminary Blood No Growth after 24 hours 09/21/16 23:13 Blood Culture - Preliminary Blood No Growth after 24 hours Assessment and Plan (1) Atrial fibrillation Status: Acute (2) Dizziness Status: Acute (3) Head ache Status: Acute (4) Leukocytosis Status: Acute (5) Vertigo Status: Acute Plan: His symptoms of vertigo and dizziness are not due to any cerebrovascular etiology. He has a history of profound hearing loss so he may have some aspect of peripheral vertigo. We can investigate this in an outpatient setting if needed. His new onset atrial fibrillation will be investigated and treated in outpatient setting this may be contributing to his dizziness lightheadedness. For now to locate for him to start Eliquis as ordered. A consult has been placed for his abnormal peripheral blood smear which is likely indicative of CLL. We can be consulted with any change in his neurological status. Otherwise he is cleared from a neurological standpoint. I have reviewed the history and physical on the above patient. I have reviewed the above note, and agree.
[2016-09-23] MEDS: NON-FORMULARY DRUG (Travoprost [Travatan Z 0.004%] 1 DROP) BOTH EYES SCH (21:36)
[2016-09-23] MEDS: traZODone HCL 50 MG TAB PO SCH (21:36)
--- NOTE | 2016-09-23 21:53 | PN ---
CHIEF COMPLAINT: Dizziness and lightheadedness. HISTORY OF PRESENT ILLNESS: This gentleman is doing well except he still complains of a funny feeling in the top of his head and lightheadedness and dizziness. His pulse drops at night, but he is asymptomatic. His white count was elevated and it was reported out that he has CLL, which is a new diagnosis. PHYSICAL EXAMINATION: CHEST: Clear. CARDIAC: Normal. ABDOMEN: Soft, nontender. He has no enlarged nodes. IMPRESSION: 1. Dizziness and vertigo. 2. Stress reaction and depression. 3. New diagnosis of chronic lymphocytic leukemia. PLAN: He wants to go home. He will now be evaluated by Hematology/Oncology.
--- NOTE | 2016-09-24 08:07 | EEG ---
DATE OF SERVICE: 09/23/2016 REASON FOR TESTING: Dizziness. AGE: 81Y DESCRIPTION OF THE PROCEDURE: This EEG was performed using a 21-channel digital electroencephalograph, following international 10 to 20 system. DESCRIPTION OF THE RECORDING: From the beginning of the tracing, and with the patient's eyes closed, the background rhythm was mostly consisting of 9 Hz alpha frequency in the posterior occipital leads. No obvious asymmetry is seen. Occasional movement and lead artifacts are seen. Photic stimulation was performed with no driving response seen. No pathological waves were elicited. The patient remains awake throughout the tracing. Hyperventilation was not performed. No epileptiform discharges were seen. His EKG lead showed an irregularly irregular rhythm with a normal rate. INTERPRETATION: This awake EEG can be considered within normal limits except his EKG lead showed an irregularly, irregular rhythm. No epileptiform discharges were seen. The absence of epileptiform discharges does not rule out the diagnosis of epilepsy, therefore, clinical correlation is recommended.
[2016-09-24 08:47] LABS: Basophils # (A) 0.2 k/uL (0-0.2); Basophils % (A) 1 %; CH 30.3; Eosinophils # (A) 0.1 k/uL (0-0.7); Eosinophils % (A) 0 %; HCT 47.1 % (39.0-53.0); HDW 2.73; HGB 14.9 gm/dL (13.0-17.5); Luc # (Auto) 0.68; Luc % (Auto) 4; Lymphocytes # (A) 14.9 k/uL (1.0-4.8); Lymphocytes % (A) 81 %; MCH 30.1 pg (25.0-35.0); MCHC 31.7 g/dL (31.0-37.0); MCV 95.2 fL (80.0-100.0); Monocytes # (A) 0.3 k/uL (0-1.0); Monocytes % (A) 2 %; Neutrophils # (A) 2.4 k/uL (1.3-7.7); Neutrophils % (A) 13 %; RBC 4.94 m/uL (4.30-5.90); RDW 13.8 % (11.5-15.5); WBC (Perox) 18.77
[2016-09-24] MEDS: PANTOPRAZOLE 40 MG TABLET PO SCH (08:49)
[2016-09-24 09:00] VITALS: RESP 17; TEMP 98
[2016-09-24 09:50] LABS: Manual Review Performed; WBC 18.5 k/uL (3.8-10.6)
[2016-09-24] MEDS ORDERED: APIXABAN 5 MG TAB PO SCH (11:00)
[2016-09-24] MEDS ORDERED: APIXABAN 2.5 MG TABLET PO SCH (11:00)
[2016-09-24 11:19] VITALS: BP 124/66; PULSE 57
--- NOTE | 2016-09-24 14:44 | PN ---
Mr. Gomez is an 81-year-old male who presented with symptoms of severe headache, was noted to be in atrial fibrillation, but reviewing an EKG done as an outpatient, it looks like that has been noted at least in August. He is feeling much better today. His dizziness is better. He denies any symptoms of chest pain. He denies any palpitation. On the monitor, he is in atrial fibrillation with controlled ventricular response with episode of bradyarrhythmia and possible junctional rhythm. He continues to be on meclizine on a p.r.n. basis and Protonix. PHYSICAL EXAMINATION: Blood pressure 124/60 with a heart rate in the 60s. LUNGS: Clear. HEART: Irregularly irregular. S1, S2, no S3, no rub. ABDOMEN: Soft, nontender. EXTREMITIES: No edema. Lab data revealed white blood cell of 18.5. Hemoglobin of 14.9. IMPRESSION: 1. Atrial fibrillation newly recognized, but documented in August. The patient had an episode of bradycardia. There is no significant pause at this time, but he may require a pacemaker down the road. 2. Headache, resolved. RECOMMENDATION: From the cardiac standpoint, he should be stable to be discharged home. I will add to his regimen Eliquis 2.5 mg twice a day because of the atrial fibrillation. I have discussed those findings with the patient and his . Will follow his rhythm in the office and if he has significant bradyarrhythmia, then will proceed with pacemaker implantation.
--- NOTE | 2016-09-24 14:50 | P.CONS ---
History of Present Illness - Reason for Consult Consult date: 09/24/16 CLL Requesting physician: Sahil Acosta - Chief Complaint vertigo - History of Present Illness Mr. Gomez is a long time pt of Dr. Carpenter who has been seen for iron deficient anemia and parenteral iron infusions PRN. In the last 6 months pt has had an upward trend in his WBC and ALC. He is in the process of being worked up for the same through our office. Pt was admitted for vertigo. Pt was sitting at the table reading when he experienced severe dizziness, unable to walk or focus, he did throw up once, he has had 4 of these episodes in the last week. He denied vision loss, syncopy or fall. He is on antivert now and states feeling much better. 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 Review of Systems All systems: negative Constitutional: Reports as per HPI Past Medical History Past Medical History: Atrial Fibrillation, GERD/Reflux Additional Past Medical History / Comment(s): iron deficient anemia History of Any Multi-Drug Resistant Organisms: None Reported Past Surgical History: Bowel Resection, Cholecystectomy, Prostate Surgery Additional Past Surgical History / Comment(s): Cornea transplant Past Anesthesia/Blood Transfusion Reactions: Postoperative Nausea & Vomiting ( PONV) Additional Past Anesthesia/Blood Transfusion Reaction / Comm: Pt states he has endured some nausea/vomiting after anesthesia. Past Psychological History: No Psychological Hx Reported Smoking Status: Never smoker Past Alcohol Use History: None Reported Past Drug Use History: None Reported - Past Family History Father History Unknown: Yes Mother History Unknown: Yes Medications and Allergies Home Medications Medication Instructions Recorded Confirmed Type Omeprazole [Omeprazole] 20 mg PO DAILY 03/24/15 09/21/16 History Travoprost [Travatan Z 0.004%] 1 drop BOTH EYES HS 09/21/16 09/21/16 History prednisoLONE ACETATE [Prednisolone 1 drop BOTH EYES MO 09/21/16 09/21/16 History Acetate] Allergies Allergy/AdvReac Type Severity Reaction Status Date / Time No Known Allergies Allergy Verified 09/21/16 18:22 Physical Exam Vitals: Vital Signs Temp Pulse Resp BP Pulse Ox 09/24/16 11:18 57 L 17 124/66 99 09/24/16 08:00 98 F 54 L 17 112/70 98 09/24/16 04:00 97.8 F 50 L 17 94/51 96 09/24/16 00:00 97.4 F L 67 16 116/72 98 09/23/16 19:37 97.7 F 78 16 136/75 95 09/23/16 16:00 97.5 F L 69 18 114/58 96 Intake and Output 09/23/16 09/24/16 09/24/16 22:59 06:59 14:59 Intake Total 180 420 Output Total 300 400 Balance -120 -400 420 Intake: Oral 180 420 Output: Urine 300 400 Other: Voiding Method Toilet Toilet Toilet Urinal Urinal Urinal Weight 65.6 kg - Constitutional General appearance: cooperative, no acute distress, thin - EENT Eyes: anicteric sclerae, EOMI, PERRLA, normal appearance ENT: hard of hearing, normal oropharynx - Neck Neck: no lymphadenopathy - Respiratory Respiratory: bilateral: CTA - Cardiovascular Heart sounds: normal: S1, S2 Abnormal Heart Sounds: no systolic murmur, no diastolic murmur, no rub, no S3 Gallop, no S4 Gallop, no click, no other leg Peripheral Edema: bilateral: None - Gastrointestinal General gastrointestinal: no absent bowel sounds, no decreased bowel sounds, no distended, no hepatomegaly, no hyperactive bowel sounds, normal bowel sounds, no organomegaly, no rigid, no scaphoid, soft, no splenomegaly, no tenderness, no umbilical hernia, no ventral hernia - Integumentary Integumentary: normal - Neurologic Neurologic: CNII-XII intact - Musculoskeletal Musculoskeletal: strength equal bilaterally - Psychiatric Psychiatric: A&O x's 3, appropriate affect, intact judgment & insight Results CBC & Chem 7: 09/24/16 08:15 09/21/16 17:15 Labs: Abnormal Lab Results - Last 24 Hours (Table) 09/24/16 Range/Units 08:15 WBC 18.5 H (3.8-10.6) k/uL Plt Count 121 L (150-450) k/uL Lymphocytes # 14.9 H (1.0-4.8) k/uL Microbiology - Last 24 Hours (Table) 09/21/16 23:13 Blood Culture - Preliminary Blood No Growth after 48 hours 09/21/16 23:13 Blood Culture - Preliminary Blood No Growth after 48 hours 09/22/16 02:25 Urine Culture - Final Urine,Clean Catch Comments: peripheral blood smear pathology report reviewed Assessment and Plan (1) CLL (chronic lymphocytic leukemia) Narrative/Plan: I spoke with the patient about the lab results that are reported here in the hospital, smear suggesting CLL/SLL. He is a current pt of Dr. Carpenter with a history of iron deficient anemia and leukocytosis. He was last seen [address] Carpenter. At that time Doctor initiated further work up of leukocytosis due to the upward trend (pt has had WBC of 15-20 over the last 6 months, 7-10 prior). BCR-ABL, Shilo-2 mutation and iron studies were done at that visit. The only results available to me at this time are iron studies, which are low. Pt will be contacted by our office for out patient follow up appt, lab results and iron infusion as ordered. Status: Acute
--- NOTE | 2016-10-06 17:34 | DS ---
CHIEF COMPLAINT: Dizziness and lightheadedness with bradycardia. HISTORY OF PRESENT ILLNESS AND PHYSICAL EXAM: Details of this man's history and physical can be found in the initial workup. LABORATORY STUDIES: While he was in the hospital he had laboratory studies, details of which can be found in the laboratory section of his chart. COURSE IN THE HOSPITAL: After admission he was placed on bedrest and started on intravenous fluids and frequent monitoring of his ( ) status and vital signs. He underwent extensive evaluation and was not found to have any central nervous system or neurologic abnormalities that could be identified. He was found to have chronic lymphocytic leukemia. He was doing well enough on 09/23 that it was felt that he could be discharged. He will be followed up for further outpatient evaluation. He will be contacted by the complex direct care specialist. FINAL DIAGNOSES: 1. Dizziness. 2. Labyrinthitis. 3. Cerebrovascular insufficiency. 4. Chronic lymphocytic leukemia. OPERATIONS: None. CONSULTATIONS: Hematology. He is improved. TEJINDER
== END 2016-09-24 15:08 | disposition home or self-care (01) | DRG 309 ==
LOC: EC 17:39 → 6SEL 20:43
PROVIDERS: ADMIT Family Medicine; ATTEND Family Medicine
DX: I48.2 Chronic atrial fibrillation (principal); C91.10 Chronic lymphocytic leukemia of B-cell type not having achieved remission; R00.1 Bradycardia, unspecified; R27.0 Ataxia, unspecified; D50.9 Iron deficiency anemia, unspecified; F32.9 Major depressive disorder, single episode, unspecified; F43.9 Reaction to severe stress, unspecified; H40.9 Unspecified glaucoma; H91.90 Unspecified hearing loss, unspecified ear; K21.9 Gastro-esophageal reflux disease without esophagitis; Z94.7 Corneal transplant status; Z87.891 Personal history of nicotine dependence; Z90.49 Acquired absence of other specified parts of digestive tract; Z79.899 Other long term (current) drug therapy
CPT/HCPCS: 36415; 70450; 70544; 71020; 80053; 80061; 81003; 82550; 82553; 83036; 83605; 83735; 84443; 84484; 85025; 85610; 85730; 87040; 87086; 88184; 88185; 93005; 93306; 93880; 95819; 99285

== ENCOUNTER 2017-01-03 04:56 | Inpatient (IN) | payer MEDICARE ==
[2017-01-03] MEDS ORDERED: SODIUM CHLORIDE 0.9% 500 ML IV STA (05:56)
--- NOTE | 2017-01-03 06:02 | ED ---
GI Bleed HPI - General Source: EMS Mode of arrival: EMS Limitations: no limitations - History of Present Illness MD complaint: melena Onset/Timin -: hour(s) Quality: cramping Consistency: now resolved Improves with: none Worsens with: none Context: blood thinners Associated Symptoms: denies other symptoms Treatments Prior to Arrival: none <Lamin Hylton - Last Filed: 01/03/17 05:57> <Narciso Rothman - Last Filed: 01/03/17 10:19> - General Chief complaint: GI Bleed Stated complaint: GI BLEED Time Seen by Provider: 01/03/17 05:01 - History of Present Illness Initial comments: 's patient is an 81-year-old man who presents to be evaluated for blood with bowel movements. The patient states that he was in his usual state of health until about 6 PM when he had some low abdominal cramping and then noted some dark red blood per rectum. The patient states she has had another 3 bowel movements with dark blood. The patient states that his abdominal pains have resolved. Currently he is feeling very fatigued and having generalized weakness. Patient denies chest pain, dyspnea, diaphoresis. He states that he is currently taking eliquis for atrial fibrillation. (Lamin Hylton) - Related Data Home Medications Medication Instructions Recorded Confirmed Omeprazole [Omeprazole] 20 mg PO DAILY 03/24/15 01/03/17 Travoprost [Travatan Z 0.004%] 1 drop BOTH EYES HS 09/21/16 01/03/17 prednisoLONE ACETATE [Prednisolone 1 drop BOTH EYES MO 09/21/16 01/03/17 Acetate] Ergocalciferol [Vitamin D2] 50,000 unit PO TU 01/03/17 01/03/17 Propylene Glycol/Peg 400/Pf 1 drop BOTH EYES QID 01/03/17 01/03/17 [Systane 0.3-0.4% Eye Drops] Previous Rx's Medication Instructions Recorded Apixaban [Eliquis] 2.5 mg PO BID #60 tab 09/23/16 Allergies Allergy/AdvReac Type Severity Reaction Status Date / Time No Known Allergies Allergy Verified 01/03/17 08:36 Review of Systems ROS Other: All systems not noted in ROS Statement are negative. Constitutional: Reports: weakness. Denies: fever, chills Respiratory: Denies: cough, dyspnea, hemoptysis Cardiovascular: Denies: chest pain, palpitations, edema, syncope Gastrointestinal: Reports: as per HPI, hematochezia Genitourinary: Denies: hematuria Musculoskeletal: Denies: back pain Skin: Denies: rash Neurological: Denies: headache, weakness <Lamin Hylton - Last Filed: 01/03/17 05:57> ROS Other: All systems not noted in ROS Statement are negative. <Narciso Rothman - Last Filed: 01/03/17 10:19> ROS Statement: Those systems with pertinent positive or pertinent negative responses have been documented in the HPI. Past Medical History Past Medical History: Atrial Fibrillation, GERD/Reflux Additional Past Medical History / Comment(s): iron deficient anemia History of Any Multi-Drug Resistant Organisms: None Reported Past Surgical History: Bowel Resection, Cholecystectomy, Prostate Surgery Additional Past Surgical History / Comment(s): Cornea transplant Past Anesthesia/Blood Transfusion Reactions: Postoperative Nausea & Vomiting ( PONV) Additional Past Anesthesia/Blood Transfusion Reaction / Comment(s): Pt states he has endured some nausea/vomiting after anesthesia. Past Psychological History: No Psychological Hx Reported Smoking Status: Never smoker Past Alcohol Use History: None Reported Past Drug Use History: None Reported - Past Family History Father History Unknown: Yes Mother History Unknown: Yes <Lamin Hylton - Last Filed: 01/03/17 05:57> General Exam Limitations: no limitations General appearance: alert, in no apparent distress Head exam: Present: atraumatic, normocephalic Eye exam: Present: normal appearance. Absent: scleral icterus, conjunctival injection ENT exam: Present: other ([place] pallor) Respiratory exam: Present: normal lung sounds bilaterally. Absent: respiratory distress, wheezes, rales, rhonchi, stridor Cardiovascular Exam: Present: regular rate, irregular rhythm, normal heart sounds. Absent: systolic murmur, diastolic murmur, rubs, gallop GI/Abdominal exam: Present: soft. Absent: distended, tenderness, guarding, rebound, mass Extremities exam: Present: normal inspection, normal capillary refill. Absent: pedal edema, calf tenderness Back exam: Absent: CVA tenderness (R), CVA tenderness (L) Neurological exam: Present: alert Skin exam: Present: warm, dry, intact, normal color. Absent: rash <BladeLamin noel - Last Filed: 01/03/17 05:57> General appearance: alert, in no apparent distress Head exam: Present: atraumatic, normocephalic, normal inspection Eye exam: Present: normal appearance, PERRL, EOMI. Absent: scleral icterus, conjunctival injection, periorbital swelling ENT exam: Present: normal exam, mucous membranes moist Neck exam: Present: normal inspection. Absent: tenderness, meningismus, lymphadenopathy Respiratory exam: Present: normal lung sounds bilaterally. Absent: respiratory distress, wheezes, rales, rhonchi, stridor Cardiovascular Exam: Present: regular rate, normal rhythm, normal heart sounds. Absent: systolic murmur, diastolic murmur, rubs, gallop, clicks GI/Abdominal exam: Present: soft, normal bowel sounds. Absent: distended, tenderness, guarding, rebound, rigid Extremities exam: Present: normal inspection, full ROM, normal capillary refill. Absent: tenderness, pedal edema, joint swelling, calf tenderness Back exam: Present: normal inspection Neurological exam: Present: alert, oriented X3, CN II-XII intact Psychiatric exam: Present: normal affect, normal mood Skin exam: Present: warm, dry, intact, normal color. Absent: rash <Narciso Rothman - Last Filed: 01/03/17 10:19> Medical Decision Making - EKG Data -: EKG Interpreted by [facility] EKG shows normal: axis (Left axis deviation), intervals (QRS duration is 66 ms, QTC is 441 ms,), QRS complexes, ST-T waves (Normal) Interpretation: other (Atrial fibrillation with a rate approximately 77 bpm) <ConcettaLamin - Last Filed: 01/03/17 05:57> - Lab Data Result diagrams: 01/03/17 09:15 01/03/17 05:12 <Narciso Rothman - Last Filed: 01/03/17 10:19> - Medical Decision Making 81 mailed ER for evaluation of GI bleed, positive GI bleed with anemia. Patient will be transfused, admitted for GI evaluation and consultation. ( Narciso Rothman) - Lab Data Lab Results 01/03/17 01/03/17 01/03/17 Range/Units 05:12 05:12 05:12 WBC 22.5 H (3.8-10.6) k/uL RBC 3.17 L (4.30-5.90) m/uL Hgb 8.2 L (13.0-17.5) gm/dL Hct 27.6 L (39.0-53.0) % MCV 87.0 (80.0-100.0) fL MCH 25.8 (25.0-35.0) pg MCHC 29.6 L (31.0-37.0) g/dL RDW 14.2 (11.5-15.5) % Plt Count 145 L (150-450) k/uL Neutrophils % (Manual) 11 % Lymphocytes % (Manual) 86 % Monocytes % (Manual) 4 % Neutrophils # (Manual) 2.48 (1.3-7.7) k/uL Lymphocytes # (Manual) 19.35 H (1.0-4.8) k/uL Monocytes # (Manual) 0.90 (0-1.0) k/uL Nucleated RBCs 0 (0-0) /100 WBC Differential Comment Manual Slide Review Performed Hypochromasia Marked Poikilocytosis Slight PT (9.0-12.0) sec INR (<1.2) APTT (22.0-30.0) sec Sodium 136 L (137-145) mmol/L Potassium 4.6 (3.5-5.1) mmol/L Chloride 106 (98-107) mmol/L Carbon Dioxide 26 (22-30) mmol/L Anion Gap 4 mmol/L BUN 25 H (9-20) mg/dL Creatinine 0.94 (0.66-1.25) mg/dL Est GFR (MDRD) Af Amer >60 (>60 ml/min/1.73 sqM) Est GFR (MDRD) Non-Af >60 (>60 ml/min/1.73 sqM) Glucose 114 H (74-99) mg/dL Plasma Lactic Acid Quan (0.7-2.0) mmol/L Calcium 7.9 L (8.4-10.2) mg/dL Total Bilirubin 0.2 (0.2-1.3) mg/dL AST 23 (17-59) U/L ALT 30 (21-72) U/L Alkaline Phosphatase 56 (38-126) U/L Total Creatine Kinase 88 (55-170) U/L CK-MB (CK-2) 2.0 (0.0-2.4) ng/mL CK-MB (CK-2) Rel Index 2.3 Troponin I <0.012 (0.000-0.034) ng/mL Total Protein 4.3 L (6.3-8.2) g/dL Albumin 2.3 L (3.5-5.0) g/dL Blood Type Blood Type Recheck Antibody Screen Crossmatch Spec Expiration Date 01/03/17 01/03/17 01/03/17 Range/Units 05:12 05:12 06:29 WBC (3.8-10.6) k/uL RBC (4.30-5.90) m/uL Hgb (13.0-17.5) gm/dL Hct (39.0-53.0) % MCV (80.0-100.0) fL MCH (25.0-35.0) pg MCHC (31.0-37.0) g/dL RDW (11.5-15.5) % Plt Count (150-450) k/uL Neutrophils % (Manual) % Lymphocytes % (Manual) % Monocytes % (Manual) % Neutrophils # (Manual) (1.3-7.7) k/uL Lymphocytes # (Manual) (1.0-4.8) k/uL Monocytes # (Manual) (0-1.0) k/uL Nucleated RBCs (0-0) /100 WBC Differential Comment Manual Slide Review Hypochromasia Poikilocytosis PT 12.0 (9.0-12.0) sec INR 1.2 H (<1.2) APTT 22.9 (22.0-30.0) sec Sodium (137-145) mmol/L Potassium (3.5-5.1) mmol/L Chloride (98-107) mmol/L Carbon Dioxide (22-30) mmol/L Anion Gap mmol/L BUN (9-20) mg/dL Creatinine (0.66-1.25) mg/dL Est GFR (MDRD) Af Amer (>60 ml/min/1.73 sqM) Est GFR (MDRD) Non-Af (>60 ml/min/1.73 sqM) Glucose (74-99) mg/dL Plasma Lactic Acid Quan 0.9 (0.7-2.0) mmol/L Calcium (8.4-10.2) mg/dL Total Bilirubin (0.2-1.3) mg/dL AST (17-59) U/L ALT (21-72) U/L Alkaline Phosphatase (38-126) U/L Total Creatine Kinase (55-170) U/L CK-MB (CK-2) (0.0-2.4) ng/mL CK-MB (CK-2) Rel Index Troponin I (0.000-0.034) ng/mL Total Protein (6.3-8.2) g/dL Albumin (3.5-5.0) g/dL Blood Type O Positive Blood Type Recheck No Antibody Screen NEGATIVE Crossmatch See Detail Spec Expiration Date 01/06/2017 - 2312 Critical Care Time Critical Care Time: Yes Total Critical Care Time: 31 <Narciso Rothman - Last Filed: 01/03/17 10:19> Disposition <Lamin Hylton - Last Filed: 01/03/17 05:57> <Narciso Rothman - Last Filed: 01/03/17 10:19> Clinical Impression: Gastrointestinal hemorrhage, Atrial fibrillation, Anemia Disposition: ADMITTED IP TO THIS HOSP Condition: Good
[2017-01-03 06:21] LABS: CH 25.3; CHCM 29.2; HCT 27.6 % (39.0-53.0); HDW 3.42; HGB 8.2 gm/dL (13.0-17.5); Hypochromasia Marked; MCH 25.8 pg (25.0-35.0); MCHC 29.6 g/dL (31.0-37.0); Mean Platelet Volume 7.2; Poikilocytosis Slight; RBC 3.17 m/uL (4.30-5.90); RDW 14.2 % (11.5-15.5); WBC 22.5 k/uL (3.8-10.6); WBC (Perox) 22.49
[2017-01-03 06:29] LABS: INR 1.2 (<1.2); Partial Thromboplastin Time 22.9 sec (22.0-30.0)
[2017-01-03 06:30] LABS: AST 23 U/L (17-59); Alkaline Phosphatase 56 U/L (38-126); Anion Gap 4 mmol/L; Blood Urea Nitrogen 25 mg/dL (9-20); Calcium 7.9 mg/dL (8.4-10.2); Carbon Dioxide 26 mmol/L (22-30); Chloride 106 mmol/L (98-107); Glucose 114 mg/dL (74-99); Non-African American GFR(MDRD) >60 (>60 ml/min/1.73 sqM); Potassium 4.6 mmol/L (3.5-5.1); Sodium 136 mmol/L (137-145); Total Bilirubin 0.2 mg/dL (0.2-1.3); Total Protein 4.3 g/dL (6.3-8.2)
[2017-01-03 06:31] LABS: ALT 30 U/L (21-72)
[2017-01-03 06:46] LABS: Creatine Kinase 88 U/L (55-170)
[2017-01-03 06:48] LABS: Add Differential Manual Differential
[2017-01-03] MEDS ORDERED: RX INFO: IV CONTRAST WAS GIVEN 1 EACH MISC MISCELLANE PRN (06:53)
[2017-01-03 06:58] LABS: Troponin I <0.012 ng/mL (0.000-0.034)
[2017-01-03] MEDS ORDERED: NALOXONE 0.4 MG/ML 1 ML VIAL IV PRN (07:28)
--- NOTE | 2017-01-03 07:36 | XR ---
EXAM: XR Chest, 1 View CLINICAL HISTORY: Reason: pain TECHNIQUE: Frontal view of the chest. COMPARISON: 09/21/16 chest radiography FINDINGS: Lungs: Question mild retained secretions or subsegmental atelectasis at the lower lobes. No dense consolidation,, pleural effusion or pneumothorax. Pleural space: See above. Heart: Unremarkable. No cardiomegaly. Mediastinum: Unremarkable. Bones/joints: Unremarkable. Soft tissues: Grouping of surgical clips project over the GE junction. Vasculature: Redemonstration of atherosclerotic calcifications of the thoracic aortic arch. IMPRESSION: No definite acute cardiopulmonary disease.
[2017-01-03 07:44] LABS: Manual Review Performed; Nucleated Red Blood Cells 0 /100 WBC (0-0); Total Cells Counted 200
--- NOTE | 2017-01-03 07:49 | CT ---
EXAMINATION TYPE: CT abdomen pelvis w con DATE OF EXAM: 01/03/2017 COMPARISON: July 16, 2011 HISTORY: GI Bleed CT DLP: 924 mGycm CONTRAST: CT scan of the abdomen and pelvis is performed without Oral Contrast and with IV Contrast, patient in jected with 100 ml mL of Omnipaque 300. FINDINGS: LUNG BASES-: No visible nodule. No infiltrate. Mild basilar compressive atelectasis. LIVER/GB: Cholecystectomy clips are in place. No space occupying hepatic lesion. Biliary tree is o f normal caliber. Tiny hepatic cyst measuring 5 mm right hepatic lobe. PANCREAS: No inflammation. No distinct mass. SPLEEN: Spleen is mildly enlarged at 13.7 cm craniocaudal dimension. No lesion seen. Splenic granulom as noted. ADRENALS: No nodule. No thickening. KIDNEYS/BLADDER: No hydronephrosis. No nephrolithiasis. No disctinct renal mass. Urinary bladder g rossly unremarkable. BOWEL: Multiple epigastric clips identified. Mild wall thickening distal esophagus. The appendix is n ot clearly visible. No inflammatory process right lower quadrant. Normal bowel caliber. No inflamma tion. GENITAL ORGANS: No gross abnormality. LYMPH NODES: No greater than 1cm abdominal or pelvic lymph nodes are appreciated. AORTA: No significant abnormality. OSSEOUS STRUCTURES: Degenerative changes lumbar spine. OTHER: No significant additional abnormality is seen. IMPRESSION: 1. No significant abnormality to account for the patient's symptoms. 2. Mild splenomegaly. 3. Mild bowel wall thickening distal esophagus.
[2017-01-03] MEDS ORDERED: HUMAN PROTHROMBIN COMPLX 500 UNIT/16 ML VIAL IV ONE (08:13)
[2017-01-03] MEDS: SODIUM CHLORIDE 0.9% 1,000 ML IV SCH ×2 (08:18→18:03)
[2017-01-03 09:27] LABS: CH 25.8; CHCM 30.2; HCT 23.6 % (39.0-53.0); HDW 3.36; HGB 7.1 gm/dL (13.0-17.5); Hypochromasia Marked; MCH 25.7 pg (25.0-35.0); MCV 85.7 fL (80.0-100.0); Mean Platelet Volume 7.9; RBC 2.75 m/uL (4.30-5.90); RDW 14.5 % (11.5-15.5); WBC 19.8 k/uL (3.8-10.6)
[2017-01-03] MEDS ORDERED: HUMAN PROTHROMBIN COMPLX IV ONE (11:00)
[2017-01-03] MEDS ORDERED: prednisoLONE ACETATE 1% OPHTH DROPS 5 ML BTL BOTH EYES SCH (12:00)
[2017-01-03 12:22] LABS: Glucose,Whole Blood 102 mg/dL (75-99)
[2017-01-03] MEDS: ARTIFICIAL TEARS-HYPROMELLOSE DROPS 15 ML BTL BOTH EYES SCH ×3 (13:23→21:54)
--- NOTE | 2017-01-03 16:07 | CONS ---
CONSULTATION DATE OF DICTATION: 01/03/2017 REQUESTING PHYSICIAN: Dr. Acosta. REASON FOR CONSULTATION: Abdominal pain and acute GI bleed. HISTORY OF PRESENT ILLNESS: The patient is an 81-year-old pleasant white male who was admitted to the hospital with acute onset of severe lower abdominal pain that started yesterday at 6 p.m. The pain continued to progressively get worse and he started noticing maroon-colored stools. He had about 6 episodes. He came into the emergency room early this morning with worsening cramping and dark red blood per rectum. He denies any epigastric pain. He reports no nausea or vomiting. He never had these symptoms in the past. He does recall having a colonoscopy about 5 or [address] Dennis, and according to him it was normal. He does have a history of atrial fibrillation and has been on Eliquis; the last dose was yesterday. He denies any recent NSAID use. No prior history of peptic ulcer disease. PAST MEDICAL HISTORY: 1. Hypertension. 2. GERD. 3. Atrial fibrillation; on Eliquis. PAST SURGICAL HISTORY: 1. Partial gastrectomy. 2. Prostate surgery. 3. Cholecystectomy. 4. Corneal transplant. MEDICATIONS: Medications at home include: 1. Omeprazole. 2. Prednisone eyedrops. 3. Vitamin D2. 4. Eliquis. ALLERGIES: NONE. SOCIAL HISTORY: No smoking or alcohol use. FAMILY HISTORY: Father had some hypertension. REVIEW OF SYSTEMS: CARDIOPULMONARY: No chest pain, shortness of breath. GENITOURINARY: No dysuria, hematuria. MUSCULOSKELETAL: Unremarkable. SKIN: Unremarkable. ENDOCRINE: Unremarkable. PSYCHIATRY: Unremarkable. NEUROLOGY: Unremarkable. ENT/VISION: Unremarkable. CONSTITUTIONAL: No recent weight loss. No fever, chills, night sweats. EXAMINATION: He appears comfortable, in no apparent distress. VITAL SIGNS: Stable. Blood pressure 119/63, pulse 73, temperature 98.4. HEENT EXAMINATION: Unremarkable. Conjunctivae are pink, sclerae anicteric. Oral cavity with no lesions. NECK: No JVD or lymph node enlargement. Chest was clear to auscultation. HEART: Regular rate and rhythm. ABDOMEN: Soft. There was mild tenderness in the left lower quadrant area, but it was soft. Bowel sounds are positive. EXTREMITIES: No pedal edema. SKIN: No rashes. NEURO: She is alert and oriented x3. No focal deficits. LABS AT THE TIME OF ADMISSION TO THE HOSPITAL: Hemoglobin was 8.2; this morning it is 7.1 g/dL. Platelets are 145, WBC 22.5. INR is 1.2. BUN is 25, creatinine 0.94. IMPRESSION: This is a patient who presented to the hospital with acute onset of lower abdominal pain followed by maroon-colored stools since yesterday evening at 6 p.m. He had about 5 episodes so far. He dropped his hemoglobin from 8.2 to 7.1 g/dL. Clinically he is hemodynamically stable. He has a prior history of partial gastrectomy 25 years ago. At this time it is unclear if we are dealing with an upper GI source or a colonic source of bleeding. The patient has history of atrial fibrillation and is on Eliquis; the last dose was yesterday morning. RECOMMENDATIONS: 1. Will start him on a clear liquid diet. 2. NPO after midnight. 3. Continue with IV Protonix. 4. Transfuse if the hemoglobin is less than 7. 5. Will consider endoscopy workup, including an EGD and colonoscopy, in the next 24 to 48 hours based on his overall condition. Thank you for this consultation. MMODL / IJN: [id number] /
[2017-01-03 16:22] LABS: CH 27.3; CHCM 30.6; HCT 33.6 % (39.0-53.0); HDW 3.67; Hypochromasia Marked; MCH 27.6 pg (25.0-35.0); MCHC 30.9 g/dL (31.0-37.0); MCV 89.4 fL (80.0-100.0); Mean Platelet Volume 7.5; Poikilocytosis Slight; RBC 3.76 m/uL (4.30-5.90); RDW 15.3 % (11.5-15.5)
[2017-01-03 16:36] LABS: HGB 10.4 gm/dL (13.0-17.5)
--- NOTE | 2017-01-03 16:36 | P.CNPUL ---
History of Present Illness Consult date: 01/03/17 Requesting physician: Sahil Acosta Reason for consult: other (Acute GI bleeding) Chief complaint: Bloody stools History of present illness: This is an 81-year-old white male with history of atrial fibrillation, placed on anticoagulation therapy about a month ago. Patient presented to the ER with mostly one-day history of dark red blood per rectum which later became bright red blood, and this was associated with abdominal cramps, dry heaves, but no hematemesis, no vomiting, no fever, no chills. She was also complaining of fatigue, generalized weakness, no chest pain, no diaphoresis. Looking at the chart, patient was placed on eliquis for atrial fibrillation about a few weeks ago. Hemoglobin upon presentation was 8.2, however recheck in few hours was 7.1 , and the patient received so far 1 unit of packed RBCs. Patient stated to me that his last colonoscopy was done by Dr. mims few years ago, and it was relatively unremarkable. Review of Systems ROS Other: All systems not noted in ROS Statement are negative. Constitutional: Reports: weakness. Denies: fever, chills Respiratory: Denies: cough, dyspnea, hemoptysis Cardiovascular: Denies: chest pain, palpitations, edema, syncope Gastrointestinal: Reports: as per HPI, hematochezia Genitourinary: Denies: hematuria Musculoskeletal: Denies: back pain Skin: Denies: rash Neurological: Denies: headache, weakness Psychiatric: No symptoms of active depression. Hematologic: No previous episodes of clotting bleeding or bruising Past Medical History Past Medical History: Atrial Fibrillation, Cancer, Eye Disorder, GERD/Reflux Additional Past Medical History / Comment(s): CLL, iron deficiency anemia- receives iron infusions, gastric ulcer, bilateral glaucoma, BPH with surgery, sinus issues gait imbalance at times-uses no assistive device. History of Any Multi-Drug Resistant Organisms: None Reported Past Surgical History: Cholecystectomy, Hernia Repair, Prostate Surgery Additional Past Surgical History / Comment(s): EGDs/colonoscopies, hemigastrectomy d/t ulcer, TURP, inguinal hernia surgery-laterallity unknown, bilateral cornea transplant/cataracts removed, L knee arthroscopy, Past Anesthesia/Blood Transfusion Reactions: Postoperative Nausea & Vomiting ( PONV) Additional Past Anesthesia/Blood Transfusion Reaction / Comment(s): Pt states he has endured some nausea/vomiting after anesthesia. Smoking Status: Former smoker - Past Family History Father History Unknown: Yes Family Medical History: Respiratory Disorder Additional Family Medical History / Comment(s): Father had "lung problems from smoking." Mother History Unknown: Yes Family Medical History: Dementia Medications and Allergies Home Medications Medication Instructions Recorded Confirmed Type Omeprazole [Omeprazole] 20 mg PO DAILY 03/24/15 01/03/17 History Travoprost [Travatan Z 0.004%] 1 drop BOTH EYES HS 09/21/16 01/03/17 History prednisoLONE ACETATE [Prednisolone 1 drop BOTH EYES MO 09/21/16 01/03/17 History Acetate] Apixaban [Eliquis] 2.5 mg PO BID #60 tab 09/23/16 01/03/17 Rx Ergocalciferol [Vitamin D2] 50,000 unit PO TU 01/03/17 01/03/17 History Propylene Glycol/Peg 400/Pf 1 drop BOTH EYES QID 01/03/17 01/03/17 History [Systane 0.3-0.4% Eye Drops] Allergies Allergy/AdvReac Type Severity Reaction Status Date / Time No Known Allergies Allergy Verified 01/03/17 08:36 Physical Exam Vitals: Vital Signs Temp Pulse Resp BP Pulse Ox 01/03/17 15:00 71 117/61 99 01/03/17 14:45 69 15 117/61 99 01/03/17 14:00 79 117/61 01/03/17 13:40 71 117/61 100 01/03/17 13:30 69 117/61 100 01/03/17 13:20 72 109/58 100 01/03/17 13:10 98.1 F 73 109/58 100 01/03/17 13:00 73 96/55 98 01/03/17 12:45 75 101/55 01/03/17 12:30 74 119/63 100 01/03/17 12:20 98.4 F 73 119/63 100 01/03/17 12:15 100 01/03/17 11:56 97.9 F 75 18 105/63 100 01/03/17 10:38 98.2 F 62 17 109/62 01/03/17 10:28 98.2 F 74 17 111/59 01/03/17 09:53 98.3 F 68 17 100/55 01/03/17 09:43 98.2 F 69 17 103/61 01/03/17 09:42 97.8 F 73 17 111/59 01/03/17 09:11 76 17 113/55 100 01/03/17 08:19 68 17 114/59 100 01/03/17 06:43 71 16 100/55 100 01/03/17 04:58 98.0 F 64 16 93/58 94 L Intake and Output 01/03/17 01/03/17 01/03/17 06:59 14:59 22:59 Intake Total 1120 100 Balance 1120 100 Intake: Intake, IV Titration 200 100 Amount Sodium Chloride 0.9% 1, 200 100 000 ml @ 100 mls/hr IV . Q10H [facility] Rx#:[id number] Blood Product 920 Rc As-1 Unit 310 [id number] Rc Pheresis 2 As3 Unit 310 [id number] Other: Weight 66.224 kg Physical Exam: Revealed an 81-year-old white male, in no form of respiratory distress. HEENT:[Neck is supple.] [No neck masses.] [No thyromegaly.] [No JVD.]. No icterus. No stridor. Chest: [Clear throughout, no crackles, no rhonchi, no wheezes.] Cardiac Exam: [Irregular irregular rhythm, Normal S1 and S2, no S3 gallop, no murmur.] Abdomen: [Soft, nontender, no megaly, no rebound, no guarding, normal bowel sounds.] Extremities: [No clubbing, no edema, no cyanosis.] Neurological Exam: [No focal neurologic deficit. Psychiatric: Normal mental examination, affect is very appropriate, psychiatric exam is unremarkable.] Musculoskeletal: Range of motion is intact, no motor deficit noted. Skin: No rashes, no ulcerations, warm, dry, normal color. Results - Laboratory Findings CBC and BMP: 01/03/17 09:15 01/03/17 05:12 PT/INR, D-dimer PT 12.0 sec (9.0-12.0) 01/03/17 05:12 INR 1.2 (<1.2) H 01/03/17 05:12 Abnormal lab findings: Abnormal Labs 01/03/17 01/03/17 01/03/17 05:12 05:12 05:12 WBC 22.5 H RBC 3.17 L Hgb 8.2 L Hct 27.6 L MCHC 29.6 L Plt Count 145 L Lymphocytes # (Manual) 19.35 H INR 1.2 H Sodium 136 L BUN 25 H Glucose 114 H POC Glucose (mg/dL) Calcium 7.9 L Total Protein 4.3 L Albumin 2.3 L Crossmatch 01/03/17 01/03/17 01/03/17 05:12 09:15 12:15 WBC 19.8 H RBC 2.75 L Hgb 7.1 L Hct 23.6 L MCHC 30.0 L Plt Count 127 L Lymphocytes # (Manual) INR Sodium BUN Glucose POC Glucose (mg/dL) 102 H Calcium Total Protein Albumin Crossmatch See Detail - Diagnostic Findings Additional studies: CT of abdomen and pelvis showed no significant abnormality, mild splenomegaly, and slight thickening of the wall of the distal esophagus. Assessment and Plan Plan: Impression: 1 acute GI bleeding, most likely lower GI in nature, and most likely related to diverticulosis. Last colonoscopy was about 3 years ago done by Dr. mims according to the patient, his GI bleeding is most likely triggered by the fact that he is on eliquis for atrial fibrillation. 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 3 history of paroxysmal atrial fibrillation, presently off anticoagulations therapy until his GI issues and GI bleeding is fully address. Recommendation: Agree with the present treatment plan, monitor serial hemoglobin and hematocrit, transfuse for hemoglobin below 7. Patient is already on Protonix 40 mg IV push twice a day, and we'll continue to monitor closely in the ICU for the next 24 hours. May eventually require colonoscopy and possibly EGD. That decision will be left to the GI service to decide. Time with Patient: Greater than 30
[2017-01-03 16:37] LABS: WBC 31.5 k/uL (3.8-10.6)
[2017-01-03] MEDS: LATANOPROST 0.005% OPHTH DROPS 2.5 ML BTL BOTH EYES SCH (20:39)
[2017-01-03] MEDS: PANTOPRAZOLE 40 MG/10 ML VIAL IVP SCH (20:39)
--- NOTE | 2017-01-03 20:58 | HP ---
HISTORY AND PHYSICAL CHIEF COMPLAINT: GI bleeding. HISTORY OF PRESENT ILLNESS: This is another admission for this 81-year-old white male. He has had a history of GI bleeding in the past. He also has a history of CLL and atrial fibrillation. He is on Eliquis. He was in the office recently to discuss the fact that he had had 3 stools positive for blood and he was referred to GI for upper and lower GI endoscopies. He has had no pain. He has had no jaundice. He came to emergency room stating that he had started with black stool and then went into copious amounts of loose red stool. REVIEW OF SYSTEMS: He has had no syncope, chest pain, palpitations, jaundice, hematemesis, renal disease, etc. PAST MEDICAL HISTORY, FAMILY HISTORY AND PERSONAL AND SOCIAL HISTORIES: Reveal that he is not allergic to any medication. He is on vitamin D 50,000 a month, trazodone 50 mg 1-2 at h.s. p.r.n., omeprazole 20 mg once a day, meclizine 12.5, one or two tablets q.i.d. p.r.n., Eliquis 2.5 mg twice a day, Travatan ophthalmic solution 0.004% in each eye once a day. The remainder of his history is unremarkable. He does not smoke or drink and he has been very healthy otherwise. PHYSICAL EXAM: Blood pressure 124/76 with a pulse of 90, respirations of 34 and he is afebrile. In general he appeared to be slender and he was pale. Head, ears, eyes, nose, mouth and throat were normal. Neck veins not distended. Thyroid not enlarged. Chest is clear. Cardiac exam is normal except for atrial fibrillation. The abdomen is soft, nontender, without masses. Extremities are normal. Neurologically he is intact. IMPRESSION: 1. Probable upper gastrointestinal bleed. 2. Atrial fibrillation on Eliquis. 3. Chronic lymphocytic leukemia. PLAN: 1. Bed rest. 2. IV fluids. 3. N.p.o. 4. GI consult. MMODL / MARCEN: [id number] /
[2017-01-03] MEDS ORDERED: traZODone HCL 50 MG TAB PO PRN (21:37)
[2017-01-03] MEDS ORDERED: ACETAMINOPHEN TAB 325 MG TAB PO PRN (21:38)
[2017-01-03 21:41] LABS: CH 27.3; CHCM 30.8; HCT 31.2 % (39.0-53.0); HDW 3.82; HGB 9.4 gm/dL (13.0-17.5); Hypochromasia Marked; MCH 26.6 pg (25.0-35.0); MCV 88.6 fL (80.0-100.0); Mean Platelet Volume 7.5; Poikilocytosis Slight; RBC 3.52 m/uL (4.30-5.90); RDW 15.3 % (11.5-15.5); WBC 24.3 k/uL (3.8-10.6)
[2017-01-04 04:43] LABS: ALT 32 U/L (21-72); AST 23 U/L (17-59); Alkaline Phosphatase 57 U/L (38-126); Anion Gap 2 mmol/L; Blood Urea Nitrogen 22 mg/dL (9-20); Calcium 8.1 mg/dL (8.4-10.2); Carbon Dioxide 24 mmol/L (22-30); Chloride 109 mmol/L (98-107); Glucose 93 mg/dL (74-99); Non-African American GFR(MDRD) >60 (>60 ml/min/1.73 sqM); Potassium 4.1 mmol/L (3.5-5.1); Sodium 135 mmol/L (137-145); Total Bilirubin 0.7 mg/dL (0.2-1.3)
[2017-01-04 04:47] LABS: CH 27.4; CHCM 31.3; HCT 28.8 % (39.0-53.0); HDW 3.89; HGB 8.9 gm/dL (13.0-17.5); Hypochromasia Marked; MCHC 30.9 g/dL (31.0-37.0); MCV 87.5 fL (80.0-100.0); Poikilocytosis Slight; RBC 3.29 m/uL (4.30-5.90); RDW 15.8 % (11.5-15.5); WBC 19.5 k/uL (3.8-10.6); WBC (Perox) 20.55
[2017-01-04 04:52] LABS: Add Differential Manual Differential
[2017-01-04] MEDS: SODIUM CHLORIDE 0.9% 1,000 ML IV SCH ×3 (04:53→23:21)
[2017-01-04 06:02] LABS: Glucose,Whole Blood 108 mg/dL (75-99)
[2017-01-04 06:45] LABS: Nucleated Red Blood Cells 0 /100 WBC (0-0); Total Cells Counted 200
[2017-01-04 06:47] LABS: Manual Review Performed; Polychromasia Present
[2017-01-04] MEDS: PANTOPRAZOLE 40 MG/10 ML VIAL IVP SCH ×2 (08:44→20:32)
--- NOTE | 2017-01-04 09:29 | P.PN ---
Subjective Principal diagnosis: GI bleed 81-year-old male history of atrial fibrillation and gastric surgery admitted with severe lower abdominal pain maroon colored bowel movements. According to nursing passed a moderate size bloody bowel movement around 7 PM last night and a few very small clotty movements this morning. Abdominal pain improving. Eliquis on hold since Tuesday. Hemodynamically stable. Received 2 units of blood yesterday. Hemoglobin 8.9. No emesis. Afebrile. Objective - Vital Signs Vital signs: Vital Signs Temp 98.5 F 01/04/17 08:00 Pulse 79 01/04/17 09:00 Resp 14 01/04/17 09:00 BP 87/60 01/04/17 09:00 Pulse Ox 97 01/04/17 09:00 Intake & Output 01/03/17 01/04/17 01/04/17 18:59 06:59 18:59 Intake Total 1520 1200 450 Output Total 100 600 Balance 1420 600 450 Weight 63.8 kg Intake: IV 200 Sodium Chloride 0.9% 1, 200 000 ml @ 100 mls/hr IV . Q10H [facility] Rx#:[id number] Intake, IV Titration 600 1200 100 Amount Sodium Chloride 0.9% 1, 600 1200 100 000 ml @ 100 mls/hr IV . Q10H [facility] Rx#:[id number] Oral 150 Blood Product 920 Rc As-1 Unit 310 [id number] Rc Pheresis 2 As3 Unit 310 [id number] Output: Urine 600 Stool 100 Other: Voiding Method Urinal Urinal # Bowel Movements 1 - Exam General appearance: The patient is alert, oriented, in no acute distress. HET: Head is normocephalic and atraumatic. Pupils are equal and reactive. Oropharynx is clear without lesions. Neck: Supple without lymphadenopathy. Trachea midline. Heart: S1 S2. Regular rate and rhythm. Lungs: No crackles or wheezes are heard. Abdomen: Soft, very mild bilateral lower abdominal tenderness, nondistended with bowel sounds. No peritoneal signs. No palpable organomegaly or masses. Extremities: Normal skin color and turgor. No cyanosis, rash, ulceration, clubbing, or edema. Radial and pedal pulses are 2/4 bilaterally. Neurological: No focal deficits. Strength and sensation are grossly intact. - Labs CBC & Chem 7: 01/04/17 04:07 01/04/17 04:07 Labs: Abnormal Lab Results - Last 24 Hours (Table) 01/03/17 01/03/17 01/03/17 Range/Units 05:12 09:15 12:15 WBC 19.8 H (3.8-10.6) k/uL RBC 2.75 L (4.30-5.90) m/uL Hgb 7.1 L (13.0-17.5) gm/dL Hct 23.6 L (39.0-53.0) % MCHC 30.0 L (31.0-37.0) g/dL RDW (11.5-15.5) % Plt Count 127 L (150-450) k/uL Lymphocytes # (Manual) (1.0-4.8) k/uL Sodium (137-145) mmol/L Chloride (98-107) mmol/L BUN (9-20) mg/dL POC Glucose (mg/dL) 102 H (75-99) mg/dL Calcium (8.4-10.2) mg/dL Total Protein (6.3-8.2) g/dL Albumin (3.5-5.0) g/dL Crossmatch See Detail 01/03/17 01/03/17 01/04/17 Range/Units 15:46 21:21 04:07 WBC 31.5 H* 24.3 H 19.5 H (3.8-10.6) k/uL RBC 3.76 L 3.52 L 3.29 L (4.30-5.90) m/uL Hgb 10.4 L D 9.4 L 8.9 L (13.0-17.5) gm/dL Hct 33.6 L 31.2 L 28.8 L (39.0-53.0) % MCHC 30.9 L 30.0 L 30.9 L (31.0-37.0) g/dL RDW 15.8 H (11.5-15.5) % Plt Count 130 L 123 L (150-450) k/uL Lymphocytes # (Manual) 17.75 H (1.0-4.8) k/uL Sodium (137-145) mmol/L Chloride (98-107) mmol/L BUN (9-20) mg/dL POC Glucose (mg/dL) (75-99) mg/dL Calcium (8.4-10.2) mg/dL Total Protein (6.3-8.2) g/dL Albumin (3.5-5.0) g/dL Crossmatch 01/04/17 01/04/17 Range/Units 04:07 06:00 WBC (3.8-10.6) k/uL RBC (4.30-5.90) m/uL Hgb (13.0-17.5) gm/dL Hct (39.0-53.0) % MCHC (31.0-37.0) g/dL RDW (11.5-15.5) % Plt Count (150-450) k/uL Lymphocytes # (Manual) (1.0-4.8) k/uL Sodium 135 L (137-145) mmol/L Chloride 109 H (98-107) mmol/L BUN 22 H (9-20) mg/dL POC Glucose (mg/dL) 108 H (75-99) mg/dL Calcium 8.1 L (8.4-10.2) mg/dL Total Protein 4.0 L (6.3-8.2) g/dL Albumin 2.2 L (3.5-5.0) g/dL Crossmatch Assessment and Plan (1) GI bleed Narrative/Plan: Suspect ischemic colitis however upper GI source cannot be entirely excluded with a history of partial gastrectomy. Status: Acute (2) Acute blood loss anemia Status: Acute (3) CLL (chronic lymphocytic leukemia) Status: Chronic (4) Chronic a-fib Status: Chronic Plan: 1. Continue to hold antiplatelet medications. Clear liquids. We'll proceed with EGD colonoscopy evaluation tomorrow. ICU monitoring. CBC monitoring. Continue GI prophylaxis. The improvement auditor has discussed the risks, benefits and alternative therapies for the above-mentioned procedure and for both sedation/analgesia as well as necessary blood product administration, if indicated, as they pertain to this patient. The patient has indicated understanding and acceptance of the risks and procedures discussed. Assessment and plan of care discussed with Dr. Painter
[2017-01-04] MEDS: ARTIFICIAL TEARS-HYPROMELLOSE DROPS 15 ML BTL BOTH EYES SCH ×4 (09:32→23:19)
[2017-01-04 11:35] LABS: CH 26.5; CHCM 29.7; HCT 28.5 % (39.0-53.0); HDW 3.97; HGB 8.8 gm/dL (13.0-17.5); Hypochromasia Marked; MCH 27.7 pg (25.0-35.0); MCV 89.2 fL (80.0-100.0); Mean Platelet Volume 7.2; Poikilocytosis Slight; RBC 3.19 m/uL (4.30-5.90); RDW 14.9 % (11.5-15.5); WBC 19.7 k/uL (3.8-10.6); WBC (Perox) 18.64
--- NOTE | 2017-01-04 12:51 | P.PN ---
Subjective Principal diagnosis: Acute GI bleeding This is an 81-year-old white male with history of atrial fibrillation, placed on anticoagulation therapy about a month ago. Patient presented to the ER with mostly one-day history of dark red blood per rectum which later became bright red blood, and this was associated with abdominal cramps, dry heaves, but no hematemesis, no vomiting, no fever, no chills. She was also complaining of fatigue, generalized weakness, no chest pain, no diaphoresis. Looking at the chart, patient was placed on eliquis for atrial fibrillation about a few weeks ago. Hemoglobin upon presentation was 8.2, however recheck in few hours was 7.1 , and the patient received so far 1 unit of packed RBCs. Patient stated to me that his last colonoscopy was done by Dr. mims few years ago, and it was relatively unremarkable. Reevaluated today on 01/04/2017, patient continues to have some vague abdominal pain and maroon-colored bowel movements. He had 2 units so far of packed RBCs transfused over the last 24 hours. Patient feels that he is better today than he was yesterday. Hemoglobin today is 8.9. Patient is still scheduled to undergo EGD and possibly colonoscopy in the next 24 hours. Objective - Vital Signs Vital signs: Vital Signs Temp 98.1 F 01/04/17 12:00 Pulse 79 01/04/17 12:00 Resp 16 01/04/17 12:00 BP 104/62 01/04/17 12:00 Pulse Ox 97 01/04/17 12:00 Intake & Output 01/03/17 01/04/17 01/04/17 18:59 06:59 18:59 Intake Total 1520 1200 750 Output Total 100 600 250 Balance 1420 600 500 Weight 63.8 kg Intake: IV 500 Sodium Chloride 0.9% 1, 500 000 ml @ 100 mls/hr IV . Q10H [facility] Rx#:[id number] Intake, IV Titration 600 1200 100 Amount Sodium Chloride 0.9% 1, 600 1200 100 000 ml @ 100 mls/hr IV . Q10H [facility] Rx#:[id number] Oral 150 Blood Product 920 Rc As-1 Unit 310 [id number] Rc Pheresis 2 As3 Unit 310 [id number] Output: Urine 600 250 Stool 100 Other: Voiding Method Urinal Urinal # Bowel Movements 1 1 - Exam Physical Exam: Revealed an 81-year-old white male, in no form of respiratory distress. HEENT:[Neck is supple.] [No neck masses.] [No thyromegaly.] [No JVD.]. No icterus. No stridor. Chest: [Clear throughout, no crackles, no rhonchi, no wheezes.] Cardiac Exam: [Irregular irregular rhythm, Normal S1 and S2, no S3 gallop, no murmur.] Abdomen: [Soft, nontender, no megaly, no rebound, no guarding, normal bowel sounds.] Extremities: [No clubbing, no edema, no cyanosis.] Neurological Exam: [No focal neurologic deficit. Psychiatric: Normal mental examination, affect is very appropriate, psychiatric exam is unremarkable.] Musculoskeletal: Range of motion is intact, no motor deficit noted. Skin: No rashes, no ulcerations, warm, dry, normal color. - Labs CBC & Chem 7: 01/04/17 11:05 01/04/17 04:07 Labs: Abnormal Lab Results - Last 24 Hours (Table) 01/03/17 01/03/17 01/03/17 Range/Units 05:12 15:46 21:21 WBC 31.5 H* 24.3 H (3.8-10.6) k/uL RBC 3.76 L 3.52 L (4.30-5.90) m/uL Hgb 10.4 L D 9.4 L (13.0-17.5) gm/dL Hct 33.6 L 31.2 L (39.0-53.0) % MCHC 30.9 L 30.0 L (31.0-37.0) g/dL RDW (11.5-15.5) % Plt Count 130 L (150-450) k/uL Lymphocytes # (Manual) (1.0-4.8) k/uL Sodium (137-145) mmol/L Chloride (98-107) mmol/L BUN (9-20) mg/dL POC Glucose (mg/dL) (75-99) mg/dL Calcium (8.4-10.2) mg/dL Total Protein (6.3-8.2) g/dL Albumin (3.5-5.0) g/dL Crossmatch See Detail 01/04/17 01/04/17 01/04/17 Range/Units 04:07 04:07 06:00 WBC 19.5 H (3.8-10.6) k/uL RBC 3.29 L (4.30-5.90) m/uL Hgb 8.9 L (13.0-17.5) gm/dL Hct 28.8 L (39.0-53.0) % MCHC 30.9 L (31.0-37.0) g/dL RDW 15.8 H (11.5-15.5) % Plt Count 123 L (150-450) k/uL Lymphocytes # (Manual) 17.75 H (1.0-4.8) k/uL Sodium 135 L (137-145) mmol/L Chloride 109 H (98-107) mmol/L BUN 22 H (9-20) mg/dL POC Glucose (mg/dL) 108 H (75-99) mg/dL Calcium 8.1 L (8.4-10.2) mg/dL Total Protein 4.0 L (6.3-8.2) g/dL Albumin 2.2 L (3.5-5.0) g/dL Crossmatch 01/04/17 Range/Units 11:05 WBC 19.7 H (3.8-10.6) k/uL RBC 3.19 L (4.30-5.90) m/uL Hgb 8.8 L (13.0-17.5) gm/dL Hct 28.5 L (39.0-53.0) % MCHC (31.0-37.0) g/dL RDW (11.5-15.5) % Plt Count 134 L (150-450) k/uL Lymphocytes # (Manual) (1.0-4.8) k/uL Sodium (137-145) mmol/L Chloride (98-107) mmol/L BUN (9-20) mg/dL POC Glucose (mg/dL) (75-99) mg/dL Calcium (8.4-10.2) mg/dL Total Protein (6.3-8.2) g/dL Albumin (3.5-5.0) g/dL Crossmatch Assessment and Plan Plan: Impression: 1 acute GI bleeding, most likely lower GI in nature, and most likely related to diverticulosis. Last colonoscopy was about 3 years [address] mims according to the patient, his GI bleeding is most likely triggered by the fact that he is on eliquis for atrial fibrillation. 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 3 history of paroxysmal atrial fibrillation, presently off anticoagulations therapy until his GI issues and GI bleeding is fully address. Recommendation: Agree with the present treatment plan, monitor serial hemoglobin and hematocrit, transfuse for hemoglobin below 7. Patient is already on Protonix 40 mg IV push twice a day, and we'll continue to monitor closely in the ICU for the next 24 hours. GI diagnostic studies are pending, most likely will be done in the next 24 hours. Time with Patient: Less than 30
[2017-01-04 13:54] LABS: Add Differential Manual Differential
[2017-01-04 13:56] LABS: Manual Review Performed; Nucleated Red Blood Cells 0 /100 WBC (0-0); Total Cells Counted 100
[2017-01-04] MEDS ORDERED: PEG 3350-NA SULF,BICARB,CL/KCL 4,000 ML BOTTLE PO ONE (16:00)
[2017-01-04 16:55] LABS: CH 26.4; CHCM 29.5; HCT 30.3 % (39.0-53.0); HDW 3.88; HGB 9.1 gm/dL (13.0-17.5); Hypochromasia Marked; MCHC 30.1 g/dL (31.0-37.0); MCV 89.5 fL (80.0-100.0); Mean Platelet Volume 7.1; Poikilocytosis Slight; RBC 3.38 m/uL (4.30-5.90); WBC 22.9 k/uL (3.8-10.6)
[2017-01-04] MEDS: LATANOPROST 0.005% OPHTH DROPS 2.5 ML BTL BOTH EYES SCH (20:32)
--- NOTE | 2017-01-04 21:09 | PN ---
PROGRESS NOTE DATE OF SERVICE: 01/04/2017 CHIEF COMPLAINT: GI bleed. HISTORY OF PRESENT ILLNESS: This gentleman is stable and he is not passing very much blood at all. Vital signs have been stable. He is going for upper and lower GI endoscopy tomorrow. PHYSICAL EXAM: He is awake and alert. CHEST: Clear. CARDIAC: Normal. ABDOMEN: Soft and nontender. IMPRESSION: 1. Gastrointestinal bleeding. 2. Atrial fibrillation. PLAN: Keep n.p.o. for scopes tomorrow and continue to monitor hemoglobin. MMODL / IJN: [id number] /
[2017-01-04 23:26] LABS: Hypochromasia Marked; MCV 88.6 fL (80.0-100.0); Poikilocytosis Slight
[2017-01-04 23:31] LABS: Anisocytosis Slight; CH 27.2; CHCM 30.8; HDW 3.82; HGB 9.8 gm/dL (13.0-17.5); MCH 27.1 pg (25.0-35.0); MCHC 30.6 g/dL (31.0-37.0); Mean Platelet Volume 7.6; RBC 3.61 m/uL (4.30-5.90); RDW 16.1 % (11.5-15.5)
[2017-01-04 23:34] LABS: WBC 27.3 k/uL (3.8-10.6)
[2017-01-05 05:10] LABS: ALT 37 U/L (21-72); AST 28 U/L (17-59); Alkaline Phosphatase 61 U/L (38-126); Anion Gap 6 mmol/L; Blood Urea Nitrogen 13 mg/dL (9-20); Calcium 8.2 mg/dL (8.4-10.2); Carbon Dioxide 24 mmol/L (22-30); Chloride 108 mmol/L (98-107); Glucose 96 mg/dL (74-99); Non-African American GFR(MDRD) >60 (>60 ml/min/1.73 sqM); Potassium 3.8 mmol/L (3.5-5.1); Sodium 138 mmol/L (137-145); Total Bilirubin 0.7 mg/dL (0.2-1.3); Total Protein 4.2 g/dL (6.3-8.2)
[2017-01-05 07:06] LABS: Anisocytosis Slight; CH 27.3; HCT 27.9 % (39.0-53.0); HDW 3.76; HGB 8.6 gm/dL (13.0-17.5); Hypochromasia Marked; MCH 27.2 pg (25.0-35.0); MCHC 30.8 g/dL (31.0-37.0); MCV 88.3 fL (80.0-100.0); Mean Platelet Volume 8.1; Poikilocytosis Slight; RBC 3.16 m/uL (4.30-5.90); RDW 16.4 % (11.5-15.5); WBC 19.5 k/uL (3.8-10.6)
[2017-01-05] MEDS ORDERED: LACTATED RINGERS 1,000 ML IV SCH (08:40)
[2017-01-05] MEDS: ARTIFICIAL TEARS-HYPROMELLOSE DROPS 15 ML BTL BOTH EYES SCH ×4 (08:44→20:37)
[2017-01-05] MEDS: PANTOPRAZOLE 40 MG/10 ML VIAL IVP SCH ×2 (08:44→20:33)
[2017-01-05 08:57] LABS: Add Differential Manual Differential
[2017-01-05 08:59] LABS: Manual Review Performed; Nucleated Red Blood Cells 0 /100 WBC (0-0); Total Cells Counted 100
--- NOTE | 2017-01-05 13:27 | P.PN ---
Subjective Principal diagnosis: Acute GI bleeding This is an 81-year-old white male with history of atrial fibrillation, placed on anticoagulation therapy about a month ago. Patient presented to the ER with mostly one-day history of dark red blood per rectum which later became bright red blood, and this was associated with abdominal cramps, dry heaves, but no hematemesis, no vomiting, no fever, no chills. She was also complaining of fatigue, generalized weakness, no chest pain, no diaphoresis. Looking at the chart, patient was placed on eliquis for atrial fibrillation about a few weeks ago. Hemoglobin upon presentation was 8.2, however recheck in few hours was 7.1 , and the patient received so far 1 unit of packed RBCs. Patient stated to me that his last colonoscopy was done by Dr. mims few years ago, and it was relatively unremarkable. Reevaluated today on 01/04/2017, patient continues to have some vague abdominal pain and maroon-colored bowel movements. He had 2 units so far of packed RBCs transfused over the last 24 hours. Patient feels that he is better today than he was yesterday. Hemoglobin today is 8.9. Patient is still scheduled to undergo EGD and possibly colonoscopy in the next 24 hours. On 01/05/2017, patient is feeling better, continues to have intermittent maroon colored stools, hemoglobin is still in the range of 8.6, patient received a total of 2 units of packed RBCs since he was admitted. Patient is scheduled to undergo EGD and colonoscopy today. Patient denies any chest pain no cough no wheezing no shortness of breath. No nausea but no vomiting, no bowel movements earlier this morning but he had maroon color stools last night. Objective - Vital Signs Vital signs: Vital Signs Temp 98.1 F 01/05/17 08:00 Pulse 76 01/05/17 12:00 Resp 30 H 01/05/17 12:00 BP 118/63 01/05/17 12:00 Pulse Ox 95 01/05/17 12:00 Intake & Output 01/04/17 01/05/17 01/05/17 18:59 06:59 18:59 Intake Total 2350 2300 500 Output Total 502 700 250 Balance 1848 1600 250 Weight 64.3 kg Intake: IV 1100 1300 500 Sodium Chloride 0.9% 1, 1100 1300 500 000 ml @ 100 mls/hr IV . Q10H [facility] Rx#:[id number] Intake, IV Titration 100 Amount Sodium Chloride 0.9% 1, 100 000 ml @ 100 mls/hr IV . Q10H [facility] Rx#:[id number] Oral 1150 1000 Output: Urine 500 700 150 Stool 100 Urine/Stool Mix 2 Other: Voiding Method Urinal Bedside Commode Bedside Commode Urinal # Bowel Movements 1 1 - Exam Physical Exam: Revealed an 81-year-old white male, in no form of respiratory distress. HEENT:[Neck is supple.] [No neck masses.] [No thyromegaly.] [No JVD.]. No icterus. No stridor. Chest: [Clear throughout, no crackles, no rhonchi, no wheezes.] Cardiac Exam: [Irregular irregular rhythm, Normal S1 and S2, no S3 gallop, no murmur.] Abdomen: [Soft, nontender, no megaly, no rebound, no guarding, normal bowel sounds.] Extremities: [No clubbing, no edema, no cyanosis.] Neurological Exam: [No focal neurologic deficit. Psychiatric: Normal mental examination, affect is very appropriate, psychiatric exam is unremarkable.] Musculoskeletal: Range of motion is intact, no motor deficit noted. Skin: No rashes, no ulcerations, warm, dry, normal color. - Labs CBC & Chem 7: 01/05/17 04:26 01/05/17 04:26 Labs: Abnormal Lab Results - Last 24 Hours (Table) 01/04/17 01/04/17 01/04/17 Range/Units 11:05 16:30 23:13 WBC 22.9 H 27.3 H* (3.8-10.6) k/uL RBC 3.38 L 3.61 L (4.30-5.90) m/uL Hgb 9.1 L 9.8 L (13.0-17.5) gm/dL Hct 30.3 L 32.0 L (39.0-53.0) % MCHC 30.1 L 30.6 L (31.0-37.0) g/dL RDW 16.1 H (11.5-15.5) % Plt Count 134 L (150-450) k/uL Lymphocytes # (Manual) 17.53 H (1.0-4.8) k/uL Chloride (98-107) mmol/L Calcium (8.4-10.2) mg/dL Total Protein (6.3-8.2) g/dL Albumin (3.5-5.0) g/dL 01/05/17 01/05/17 Range/Units 04:26 04:26 WBC 19.5 H (3.8-10.6) k/uL RBC 3.16 L (4.30-5.90) m/uL Hgb 8.6 L (13.0-17.5) gm/dL Hct 27.9 L (39.0-53.0) % MCHC 30.8 L (31.0-37.0) g/dL RDW 16.4 H (11.5-15.5) % Plt Count 131 L (150-450) k/uL Lymphocytes # (Manual) 15.80 H (1.0-4.8) k/uL Chloride 108 H (98-107) mmol/L Calcium 8.2 L (8.4-10.2) mg/dL Total Protein 4.2 L (6.3-8.2) g/dL Albumin 2.3 L (3.5-5.0) g/dL Assessment and Plan Plan: Impression: 1 acute GI bleeding, most likely lower GI in nature, and most likely related to diverticulosis. Last colonoscopy was about 3 years [address] mims according to the patient, his GI bleeding is most likely triggered by the fact that he is on eliquis for atrial fibrillation. 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 3 history of paroxysmal atrial fibrillation, presently off anticoagulations therapy until his GI issues and GI bleeding is fully address. Recommendation: Agree with the present treatment plan, continue to monitor hemoglobin at least on a daily basis, patient is scheduled to undergo EGD and colonoscopy today. Depending on the findings, will decide whether the patient needs to stay in the ICU or possibly transferred to a medical floor. Time with Patient: Less than 30
[2017-01-05] MEDS ORDERED: PROPOFOL 10 MG/ML 20 ML VIAL IV ONE (14:15)
[2017-01-05] MEDS ORDERED: IV FLUID CONTINUATION 1,000 ML IV ONE (14:17)
--- NOTE | 2017-01-05 14:42 | P.PCN ---
Date of Procedure: 01/05/17 Procedure(s) Performed: Brief history: Patient is a pleasant 81-year-old white male, was admitted to the hospital with acute GI bleed. He has had multiple episodes of maroon-colored stools with cramping lower abdominal discomfort. CT of abdomen was negative. He is hence scheduled for upper endoscopy as well as colonoscopy as a part of evaluation of evaluation acute GI bleed. Patient has been on and liquids which has been on hold for the last 2 days. Procedure performed: Esophagogastroduodenoscopy with cautery Colonoscopy Preoperative diagnosis: Acute GI bleed Anesthesia: MAC Procedure: After informed consent was obtained from the patient was brought into the endoscopy unit and IV sedation was administered by anesthesia under continuous monitoring. Initially upper endoscopy was done. The Olympus GF 160 video endoscope was inserted inserted into the mouth and esophagus intubated without any difficulty and was gradually advanced into the stomach and there was a distal antrectomy with Billroth II anastomosis identified. At the anastomosis there was some gastritis seen. There was a small angiectasia in the proximal jejunum just beyond the anastomosis that was actively oozing which was cauterized using a gold probe. The scope at this time was withdrawn to the gastric remnant that had some gastritis seen. The cardia and fundus appeared normal. The scope was then withdrawn into the esophagus. The GE junction was located at 40 cm to the incisors. It appeared regular with no erythema erosions or ulcerations. Rest of the esophagus appeared normal. Patient tolerated the procedure well. At this time the patient continued to remain sedation. Initial digital rectal examination was normal. Olympus CF 160 video colonoscope was then inserted into the rectum and gradually advanced to the cecum without any difficulty. Careful examination was performed as the scope was gradually being withdrawn. The prep was excellent. The cecum, ascending colon, transverse colon, descending colon, sigmoid colon and rectum appeared normal. Scattered left- sided diverticulosis seen. Retroflexion was performed in the rectum and no lesions were noted. Patient tolerated the procedure well. Impression: 1. Upper endoscopy revealed a small angiectasia in the proximal jejunum just beyond the Billroth II anastomosis with active oozing status post cautery as described above. 2. Colonoscopy revealed no active bleeding and scattered right-sided diverticulosis. Recommendations: Findings of this examination were discussed with the patient as well as his family. He'll be started on a liquid diet. Continue to hold anticoagulation for 3-4 days.
[2017-01-05] MEDS: SODIUM CHLORIDE 0.9% 1,000 ML IV SCH ×2 (17:47→19:49)
--- NOTE | 2017-01-05 19:06 | PN ---
PROGRESS NOTE DATE OF SERVICE: 01/05/2017 CHIEF COMPLAINT: GI bleed. HISTORY OF PRESENT ILLNESS: This gentleman is fairly stable but his hemoglobin has gone down to around 8. He is going for endoscopy today. PHYSICAL EXAM: His chest is clear. Cardiac exam is normal. Abdomen is soft, nontender. There are no masses. IMPRESSION: 1. Probable upper GI bleed. 2. Blood loss anemia. 3. Atrial fibrillation. 4. CLL. PLAN: Endoscopies today. MMODL / IJN: [id number] /
[2017-01-05] MEDS: LATANOPROST 0.005% OPHTH DROPS 2.5 ML BTL BOTH EYES SCH (20:34)
[2017-01-06] MEDS: SODIUM CHLORIDE 0.9% 1,000 ML IV SCH ×2 (06:28→17:17)
[2017-01-06] MEDS: ARTIFICIAL TEARS-HYPROMELLOSE DROPS 15 ML BTL BOTH EYES SCH ×4 (08:57→21:10)
[2017-01-06] MEDS: PANTOPRAZOLE 40 MG/10 ML VIAL IVP SCH ×2 (08:58→20:27)
[2017-01-06 09:47] LABS: Anisocytosis Slight; CH 27.3; CHCM 30.3; HCT 29.2 % (39.0-53.0); HDW 3.72; HGB 8.8 gm/dL (13.0-17.5); Hypochromasia Marked; MCH 27.2 pg (25.0-35.0); MCHC 30.1 g/dL (31.0-37.0); MCV 90.3 fL (80.0-100.0); Mean Platelet Volume 7.4; Poikilocytosis Slight; RBC 3.24 m/uL (4.30-5.90); RDW 17.2 % (11.5-15.5); WBC (Perox) 18.15
[2017-01-06 10:14] LABS: ALT 27 U/L (21-72); AST 31 U/L (17-59); Alkaline Phosphatase 59 U/L (38-126); Anion Gap 7 mmol/L; Blood Urea Nitrogen 9 mg/dL (9-20); Calcium 8.3 mg/dL (8.4-10.2); Carbon Dioxide 24 mmol/L (22-30); Chloride 107 mmol/L (98-107); Glucose 115 mg/dL (74-99); Non-African American GFR(MDRD) >60 (>60 ml/min/1.73 sqM); Potassium 3.7 mmol/L (3.5-5.1); Sodium 138 mmol/L (137-145); Total Bilirubin 0.6 mg/dL (0.2-1.3); Total Protein 4.5 g/dL (6.3-8.2)
--- NOTE | 2017-01-06 11:17 | P.PN ---
Subjective Principal diagnosis: GI bleed Admitted with GI bleed status post EGD colonoscopy yesterday findings of small angiectasia in the proximal jejunum beyond Billroth II anastomosis with active ooze status post cautery. No recurrence of bleeding since endoscopic exams. Tolerating liquid diet requesting advancement. Hemoglobin 8.8. Objective - Vital Signs Vital signs: Vital Signs Temp 96.0 F L 01/06/17 07:00 Pulse 66 01/06/17 07:00 Resp 18 01/06/17 07:00 BP 137/65 01/06/17 07:00 Pulse Ox 96 01/06/17 07:00 Intake & Output 01/05/17 01/06/17 01/06/17 18:59 06:59 18:59 Intake Total 2300 400 Output Total 675 200 500 Balance 1625 200 -500 Intake: IV 1800 Sodium Chloride 0.9% 1, 1300 000 ml @ 100 mls/hr IV . Q10H [facility] Rx#:[id number] Oral 500 400 Output: Urine 575 200 500 Stool 100 Other: Voiding Method Bedside Commode Urinal # Voids 1 2 - Exam General appearance: The patient is alert, oriented, in no acute distress. HET: Head is normocephalic and atraumatic. Pupils are equal and reactive. Oropharynx is clear without lesions. Neck: Supple without lymphadenopathy. Trachea midline. Heart: S1 S2. Regular rate and rhythm. Lungs: No crackles or wheezes are heard. Abdomen: Soft, very mild bilateral lower abdominal tenderness, nondistended with bowel sounds. No peritoneal signs. No palpable organomegaly or masses. Extremities: Normal skin color and turgor. No cyanosis, rash, ulceration, clubbing, or edema. Radial and pedal pulses are 2/4 bilaterally. Neurological: No focal deficits. Strength and sensation are grossly intact. 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 Status: Acute (2) Acute blood loss anemia Status: Acute (3) CLL (chronic lymphocytic leukemia) Status: Chronic (4) Chronic a-fib Status: Chronic Plan: 1. Continue with Protonix twice a day until discharge. Continue omeprazole 20 mg daily at home. Return to office in 1-2 weeks for reevaluation. Discharge per medicine. Will advance diet. Restart anticoagulation in 3 days. Assessment and plan a care discussed with Dr. Olsen
--- NOTE | 2017-01-06 11:43 | P.PN ---
Subjective Principal diagnosis: Acute GI bleeding This is an 81-year-old white male with history of atrial fibrillation, placed on anticoagulation therapy about a month ago. Patient presented to the ER with mostly one-day history of dark red blood per rectum which later became bright red blood, and this was associated with abdominal cramps, dry heaves, but no hematemesis, no vomiting, no fever, no chills. She was also complaining of fatigue, generalized weakness, no chest pain, no diaphoresis. Looking at the chart, patient was placed on eliquis for atrial fibrillation about a few weeks ago. Hemoglobin upon presentation was 8.2, however recheck in few hours was 7.1 , and the patient received so far 1 unit of packed RBCs. Patient stated to me that his last colonoscopy was done by Dr. mims few years ago, and it was relatively unremarkable. Reevaluated today on 01/04/2017, patient continues to have some vague abdominal pain and maroon-colored bowel movements. He had 2 units so far of packed RBCs transfused over the last 24 hours. Patient feels that he is better today than he was yesterday. Hemoglobin today is 8.9. Patient is still scheduled to undergo EGD and possibly colonoscopy in the next 24 hours. On 01/05/2017, patient is feeling better, continues to have intermittent maroon colored stools, hemoglobin is still in the range of 8.6, patient received a total of 2 units of packed RBCs since he was admitted. Patient is scheduled to undergo EGD and colonoscopy today. Patient denies any chest pain no cough no wheezing no shortness of breath. No nausea but no vomiting, no bowel movements earlier this morning but he had maroon color stools last night. On 01/06/2017 the patient is seen resting in bed. No significant distress, denies shortness of breath, chest congestion or wheezing. Lung sounds are clear to auscultation. On room air with O2 sats are 96%. Stable from pulmonary standpoint.Denies any bloody bowel movements in the last 24 hours. Hemodynamically stable. Today's hemoglobin is 8.8, no plans to transfuse. Patient is status post EGD and colonoscopy with cauterization of a small bleed from small angiectasia in the proximal jejunum just beyond the Billroth II anastomosis. Patient is tolerating clear diet. Colonoscopy revealed no active bleeding and scattered right-sided diverticulosis. Anticipate discharge today. Objective - Vital Signs Vital signs: Vital Signs Temp 96.0 F L 01/06/17 07:00 Pulse 66 01/06/17 07:00 Resp 18 01/06/17 07:00 BP 137/65 01/06/17 07:00 Pulse Ox 96 01/06/17 07:00 Intake & Output 01/05/17 01/06/17 01/06/17 18:59 06:59 18:59 Intake Total 2300 400 Output Total 675 200 500 Balance 1625 200 -500 Intake: IV 1800 Sodium Chloride 0.9% 1, 1300 000 ml @ 100 mls/hr IV . Q10H DEMAR Rx#:[id number] Oral 500 400 Output: Urine 575 200 500 Stool 100 Other: Voiding Method Bedside Commode Urinal # Voids 1 2 - Exam GENERAL EXAM: Alert, active, comfortable in no apparent distress. HEAD: Normocephalic. EYES: Normal reaction of pupils, equal size. NOSE: Clear with pink turbinates. THROAT: No erythema or exudates. NECK: No masses, no JVD. CHEST: No chest wall deformity. LUNGS: Equal air entry with no crackles, wheeze, rhonchi or dullness. CVS: S1 and S2 normal with no audible mumurs, regular rhythm. ABDOMEN: No hepatosplenomegaly, normal bowel sounds, no guarding or rigidity. SPINE: No scoliosis or deformity SKIN: No rashes CENTRAL NERVOUS SYSTEM: No focal deficits, tone is normal in all 4 extremities. - Labs CBC & Chem 7: 01/06/17 09:04 01/06/17 09:04 Labs: Abnormal Lab Results - Last 24 Hours (Table) 01/06/17 01/06/17 Range/Units 09:04 09:04 WBC 18.6 H (3.8-10.6) k/uL RBC 3.24 L (4.30-5.90) m/uL Hgb 8.8 L (13.0-17.5) gm/dL Hct 29.2 L (39.0-53.0) % MCHC 30.1 L (31.0-37.0) g/dL RDW 17.2 H (11.5-15.5) % Plt Count 122 L (150-450) k/uL Glucose 115 H (74-99) mg/dL Calcium 8.3 L (8.4-10.2) mg/dL Total Protein 4.5 L (6.3-8.2) g/dL Albumin 2.5 L (3.5-5.0) g/dL Assessment and Plan Plan: Assessment and Plan Plan: Impression: 1 acute GI bleeding, status post EGD and colonoscopy with cauterization of a small bleed near the Billroth II anastomosis. No further bleeding. On oral diet. 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 3 history of paroxysmal atrial fibrillation, presently off anticoagulations therapy until his GI issues and GI bleeding is fully address. Recommendation: Agree with the present treatment plan, stable for discharge from our standpoint I performed a history & physical examination of the patient and discussed their management with my nurse practitioner, Kena Hemphill. I reviewed the nurse practitioner's note and agree with the documented findings and plan of care.
[2017-01-06 11:49] LABS: Add Differential Manual Differential
[2017-01-06 11:54] LABS: WBC 18.6 k/uL (3.8-10.6)
--- NOTE | 2017-01-06 16:37 | PN ---
PROGRESS NOTE CHIEF COMPLAINT: GI bleeding. HISTORY OF PRESENT ILLNESS: This gentleman is stable and has had no further bleeding. Apparently a small area of telangiectasia were identified just inside the jejunum. There is no apparent ulcer. He is stable right now and not bleeding. PHYSICAL EXAM: Color is good. Chest is clear. Cardiac exam is normal except for atrial fibrillation. The abdomen is soft, nontender. IMPRESSION: Upper GI bleed from peeling telangiectasia of jejunum. PLAN: Increase activity and possibly home tomorrow. MMODL / IJN: [id number] /
[2017-01-06] MEDS: LATANOPROST 0.005% OPHTH DROPS 2.5 ML BTL BOTH EYES SCH (21:10)
[2017-01-07 01:08] VITALS: RESP 18; TEMP 96.7
[2017-01-07] MEDS: SODIUM CHLORIDE 0.9% 1,000 ML IV SCH ×2 (01:32→12:19)
[2017-01-07 06:38] VITALS: BP 119/73; PULSE 68
[2017-01-07] MEDS: PANTOPRAZOLE 40 MG/10 ML VIAL IVP SCH (08:15)
[2017-01-07] MEDS: ARTIFICIAL TEARS-HYPROMELLOSE DROPS 15 ML BTL BOTH EYES SCH ×2 (08:15→12:20)
[2017-01-07] MEDS ORDERED: PANTOPRAZOLE 40 MG TABLET PO SCH (08:15)
[2017-01-07 09:37] LABS: Anisocytosis Slight; CH 26.4; CHCM 28.9; HCT 32.5 % (39.0-53.0); HDW 3.69; HGB 9.7 gm/dL (13.0-17.5); Hypochromasia Marked; MCH 27.4 pg (25.0-35.0); MCHC 29.8 g/dL (31.0-37.0); MCV 91.8 fL (80.0-100.0); Mean Platelet Volume 7.2; Poikilocytosis Slight; RBC 3.54 m/uL (4.30-5.90); RDW 16.2 % (11.5-15.5); WBC 22.7 k/uL (3.8-10.6)
[2017-01-07 10:36] LABS: Add Differential Manual Differential
[2017-01-07 10:39] LABS: Nucleated Red Blood Cells 0 /100 WBC (0-0); Total Cells Counted 200
--- NOTE | 2017-01-08 11:57 | DS ---
DISCHARGE SUMMARY DATE OF SERVICE: 01/07/2017 CHIEF COMPLAINT: GI bleed. HISTORY OF PRESENT ILLNESS AND PHYSICAL EXAM: The details of this man's history and physical can be found in the initial workup. LABORATORY STUDIES: While he was in the hospital he had laboratory studies, details which can be found in the laboratory section of his chart. COURSE IN HOSPITAL: After admission, he was placed in bedrest started on intravenous fluids and was transfused. The bleeding stopped. He was taken for endoscopy where he was found to have telangiectatic blood vessels in the proximal duodenum. He had no further difficulties or problems. It was felt that he can be discharged on the . He will go home on his usual diet and activity and his regular medication program, but he will no longer be able to be on anticoagulants for his atrial fibrillation. He will be seen in the office in several days. FINAL DIAGNOSES: 1. Massive upper gastrointestinal hemorrhage. 2. Blood loss anemia. 3. CLL. 4. Telangiectasia of the proximal duodenum. OPERATIONS: Upper and lower GI endoscopies. CONSULTATIONS: Gastroenterology. He is improved. MMODL / MARCEN: [id number] /
== END 2017-01-07 13:40 | disposition home or self-care (01) | DRG 378 ==
LOC: EC 04:56 → 6ICU 07:28 → 4MS4W 01-05 17:44
PROVIDERS: ADMIT Family Medicine; ATTEND Family Medicine
PROC: 30233N1 Transfusion of Nonautologous Red Blood Cells into Peripheral Vein, Percutaneous Approach (ICD-10-PCS; 2017-01-03)
PROC: 0W3P8ZZ Control Bleeding in Gastrointestinal Tract, Via Natural or Artificial Opening Endoscopic (ICD-10-PCS; principal; 2017-01-05 14:35)
PROC: 0DJD8ZZ Inspection of Lower Intestinal Tract, Via Natural or Artificial Opening Endoscopic (ICD-10-PCS; 2017-01-05 14:35)
DX: K92.2 Gastrointestinal hemorrhage, unspecified (principal); K55.8 Other vascular disorders of intestine; C91.10 Chronic lymphocytic leukemia of B-cell type not having achieved remission; I48.0 Paroxysmal atrial fibrillation; I48.2 Chronic atrial fibrillation; I10 Essential (primary) hypertension; D62 Acute posthemorrhagic anemia; T45.515A Adverse effect of anticoagulants, initial encounter; I99.8 Other disorder of circulatory system; K57.30 Diverticulosis of large intestine without perforation or abscess without bleeding; R26.89 Other abnormalities of gait and mobility; R53.1 Weakness; N40.0 Benign prostatic hyperplasia without lower urinary tract symptoms; K21.9 Gastro-esophageal reflux disease without esophagitis; H40.9 Unspecified glaucoma; Z82.49 Family history of ischemic heart disease and other diseases of the circulatory system; Z94.7 Corneal transplant status; Z90.3 Acquired absence of stomach [part of]; Z79.899 Other long term (current) drug therapy; Z79.01 Long term (current) use of anticoagulants; Z87.891 Personal history of nicotine dependence; Z87.11 Personal history of peptic ulcer disease; Z90.49 Acquired absence of other specified parts of digestive tract; Z90.79 Acquired absence of other genital organ(s); Z87.19 Personal history of other diseases of the digestive system; Z86.2 Personal history of diseases of the blood and blood-forming organs and certain disorders involving the immune mechanism; Z98.42 Cataract extraction status, left eye; Z98.41 Cataract extraction status, right eye; Z83.6 Family history of other diseases of the respiratory system
CPT/HCPCS: 36415; 43255; 71010; 74177; 80053; 82272; 82550; 82553; 83605; 83735; 84484; 85025; 85027; 85610; 85730; 86850; 86900; 86901; 86920; 93005; 96361; 96374; 99291

== ENCOUNTER 2022-12-13 16:59 | Inpatient (IN) | payer MEDICARE ==
[2022-12-13] MEDS ORDERED: SODIUM CHLORIDE 0.9% 500 ML 500 ML IV STA (17:35)
--- NOTE | 2022-12-13 17:50 | ED ---
General Adult HPI - General Chief complaint: Recheck/Abnormal Lab/Rx Stated complaint: AFIB Time Seen by Provider: 12/13/22 17:05 Source: patient, RN notes reviewed, old records reviewed Mode of arrival: ambulatory Limitations: no limitations - History of Present Illness Initial comments: This is an 87-year-old male who presents emergency Department stating that last night he started having a headache any described as severe. Patient states it has improved today but it still there. Patient states he also had pain in bilateral shoulders and tingling to the tips of his fingers patient states symptoms started last night and continued today. Patient states the left arm also feels very heavy. Patient went to an urgent care and they sent him in here to be evaluated. Patient denies any chest pain difficult breathing or shortness of breath. Patient denies any recent fever chills or cough per patient denies any abdominal pain. Patient denies any leg swelling or calf tenderness. Patient states he does have a history of CLL. Patient's only medication is omeprazole. Patient also states she's been a little bit lightheaded since yesterday - Related Data Home Medications Medication Instructions Recorded Confirmed Omeprazole 20 mg PO DAILY 03/24/15 12/13/22 Propylene Glycol/Peg 400/Pf 1 drop BOTH EYES BID PRN 01/03/17 12/13/22 [Systane 0.3-0.4% Eye Drop] Bimatoprost [Lumigan 0.01% Ophth 1 drop BOTH EYES HS 12/13/22 12/13/22 Soln] Cholecalciferol (Vitamin D3) 1,250 mcg PO Q30D 12/13/22 12/13/22 [Vitamin D3] Ketotifen 0.025% Ophth Soln 1 drop BOTH EYES BID PRN 12/13/22 12/13/22 [Zaditor] Meclizine [Antivert] 6.25 mg PO QID PRN 12/13/22 12/13/22 Allergies Allergy/AdvReac Type Severity Reaction Status Date / Time No Known Allergies Allergy Verified 12/13/22 17:45 Review of Systems ROS Statement: Those systems with pertinent positive or pertinent negative responses have been documented in the HPI. ROS Other: All systems not noted in ROS Statement are negative. Past Medical History Past Medical History: Atrial Fibrillation, Cancer, Eye Disorder, GERD/Reflux Additional Past Medical History / Comment(s): CLL, iron deficiency anemia- receives iron infusions, gastric ulcer, bilateral glaucoma, BPH with surgery, sinus issues gait imbalance at times-uses no assistive device. History of Any Multi-Drug Resistant Organisms: None Reported Past Surgical History: Cholecystectomy, Hernia Repair, Prostate Surgery Additional Past Surgical History / Comment(s): EGDs/colonoscopies, hemigastrectomy d/t ulcer, TURP, inguinal hernia surgery-laterallity unknown, bilateral cornea transplant/cataracts removed, L knee arthroscopy, Past Anesthesia/Blood Transfusion Reactions: Postoperative Nausea & Vomiting (PO NV) Additional Past Anesthesia/Blood Transfusion Reaction / Comment(s): Pt states he has endured some nausea/vomiting after anesthesia. Past Psychological History: No Psychological Hx Reported Smoking Status: Never smoker Past Alcohol Use History: None Reported Past Drug Use History: None Reported - Past Family History Father History Unknown: Yes Family Medical History: Respiratory Disorder Additional Family Medical History / Comment(s): Father had "lung problems from smoking." Mother History Unknown: Yes Family Medical History: Dementia General Exam - General Exam Comments Initial Comments: GENERAL: Patient is well-developed and well-nourished. Patient is nontoxic and well- hydrated and is in mild distress. ENT: Neck is soft and supple. No significant lymphadenopathy is noted. Oropharynx is clear. Moist mucous membranes. Neck has full range of motion without eliciting any pain. EYES: The sclera were anicteric and conjunctiva were pink and moist. Extraocular movements were intact and pupils were equal round and reactive to light. Eyelids were unremarkable. PULMONARY: Unlabored respirations. Good breath sounds bilaterally. No audible rales rhonchi or wheezing was noted. CARDIOVASCULAR: Patient is bradycardic at about 45 beats a minute ABDOMEN: Soft and nontender with normal bowel sounds. SKIN: Skin is clear with no lesions or rashes and otherwise unremarkable. NEUROLOGIC: Patient is alert and oriented x3. Cranial nerves II through XII are grossly intact. Motor and sensory are also intact. Normal speech, volume and content. Symmetrical smile. MUSCULOSKELETAL: Normal extremities with adequate strength and full range of motion. No lower extremity swelling or edema. No calf tenderness. LYMPHATICS: No significant lymphadenopathy is noted PSYCHIATRIC: Normal psychiatric evaluation. Limitations: no limitations Course Vital Signs 12/13/22 12/13/22 17:06 18:58 Temperature 98.2 F Pulse Rate 50 L 50 L Respiratory 20 18 Rate Blood Pressure 126/61 114/64 O2 Sat by Pulse 99 98 Oximetry Medical Decision Making - Medical Decision Making EKG was interpreted by myself. EKG shows atrial fibrillation at 45 bpm QRS is 95 QT interval 443 QTC is 397. Was pt. sent home I got in by a medical professional or institution (, BILL, COMMISSARY STEWARD, urgent care, hospital, or fci...) When possible be specific @ -Patient was sent in by urgent care Did you speak to anyone other than the patient for history (EMS, parent, family, police, friend...)? What history was obtained from this source @ -No Did you review nursing and triage notes (agree or disagree)? Why? @ -I reviewed and agree with nursing and triage notes Were old charts reviewed (outside hosp., previous admission, EMS record, old EKG, old radiological studies, urgent care reports/EKG's, fci records)? Report findings @ -Reviewed prior lab work in prior charts on this patient Differential Diagnosis (chest pain, altered mental status, abdominal pain women, abdominal pain men, vaginal bleeding, weakness, fever, dyspnea, syncope, headache, dizziness, GI bleed, back pain, seizure, CVA, palpatations, mental he alth, musculoskeletal)? @ -Differential Dizziness: Benign paroxysmal positional Vertigo, Menieres disease, otitis media, acoustic neuroma, vertebrobasilar insufficiency, cerebellar stroke, encephalitis, hypovolemic, arrhythmia, coronary artery syndrome, anemia, this is not meant to be an all-inclusive list EKG interpreted by me (3pts min.). @ -As above X-rays interpreted by me (1pt min.). @ -Chest x-ray No acute abnormality CT interpreted by me (1pt min.). @ -CT of the brain shows no acute abnormality U/S interpreted by me (1pt. min.). @ -None done What testing was considered but not performed or refused? (CT, X-rays, U/S, labs)? Why? @ -None What meds were considered but not given or refused? Why? @ -None Did you discuss the management of the patient with other professionals (professionals i.e. , BILL, COMMISSARY STEWARD, lab, RT, psych nurse, health care social worker, dice manager, teacher, correctional probation officer, case aide)? Give summary @ -Spoke with [facility] hospitalist and they agreed to admit the patient Was smoking cessation discussed for >3mins.? @ -No Was critical care preformed (if so, how long)? @ -No Were there social determinants of health that impacted care today? How? (Homelessness, low income, unemployed, alcoholism, drug addiction, transportation, low edu. Level, literacy, decrease access to med. care, group home, rehab)? @ -No Was there de-escalation of care discussed even if they declined (Discuss DNR or withdrawal of care, Hospice)? DNR status @ -No What co-morbidities impacted this encounter? (DM, HTN, Smoking, COPD, CAD, Cancer, CVA, ARF, Chemo, Hep., AIDS, mental health diagnosis, sleep apnea, morbid obesity)? @ -None Was patient admitted / discharged? Hospital course, mention meds given and route, prescriptions, significant lab abnormalities, going to OR and other pertinent info. @ -Patient's lab work x-rays and CAT scans all within normal range. Patient continued to feel a little bit of tingling sensation both hands and some heaviness in the left arm. I spoke with [facility] hospitalist agreed to admit the patient admitted the patient wrote admitting orders I consult to cardiology because of the heart rate in the 40s on occasion dipping down as low as 40 Undiagnosed new problem with uncertain prognosis? @ -No Drug Therapy requiring intensive monitoring for toxicity (Heparin, Nitro, Insuli n, Cardizem)? @ -No Were any procedures done? @ -No Diagnosis/symptom? @ -Bradycardia Acute, or Chronic, or Acute on Chronic? @ -Acute Uncomplicated (without systemic symptoms) or Complicated (systemic symptoms)? @ -Complicated Side effects of treatment? @ -No Exacerbation, Progression, or Severe Exacerbation? @ -No Poses a threat to life or bodily function? How? (Chest pain, USA, ID, pneumonia, PE, COPD, DKA, ARF, appy, cholecystitis, CVA, Diverticulitis, Homicidal, Suicidal, threat to staff... and all critical care pts) @ -Urinalysis completed poor perfusion and end organ dysfunction Diagnosis/symptom? @ -Lightheaded Acute, or Chronic, or Acute on Chronic? @ -Acute Uncomplicated (without systemic symptoms) or Complicated (systemic symptoms)? @ -Complicated Side effects of treatment? @ -none Exacerbation, Progression, or Severe Exacerbation] @ -no Poses a threat to life or bodily function? @ -no - Lab Data Result diagrams: 12/13/22 17:47 12/13/22 17:47 Lab Results 12/13/22 12/13/22 12/13/22 Range/Units 17:47 17:47 17:47 WBC 29.2 H (3.8-10.6) k/uL RBC 4.11 L (4.30-5.90) m/uL Hgb 11.4 L (13.0-17.5) gm/dL Hct 36.2 L (39.0-53.0) % MCV 88.2 (80.0-100.0) fL MCH 27.7 (25.0-35.0) pg MCHC 31.4 (31.0-37.0) g/dL RDW 14.1 (11.5-15.5) % Plt Count 127 L (150-450) k/uL MPV 8.1 Hypochromasia Marked PT 11.3 (9.0-12.0) sec INR 1.1 (<1.2) APTT 24.5 (22.0-30.0) sec Sodium 136 L (137-145) mmol/L Potassium 5.4 H (3.5-5.1) mmol/L Chloride 104 (98-107) mmol/L Carbon Dioxide 25 (22-30) mmol/L Anion Gap 7 mmol/L BUN 16 (9-20) mg/dL Creatinine 0.88 (0.66-1.25) mg/dL Est GFR (CKD-EPI)AfAm 90 (>60 ml/min/1.73 sqM) Est GFR (CKD-EPI)NonAf 77 (>60 ml/min/1.73 sqM) Glucose 121 H (74-99) mg/dL Calcium 8.6 (8.4-10.2) mg/dL Magnesium 2.4 H (1.6-2.3) mg/dL Total Bilirubin 0.6 (0.2-1.3) mg/dL AST 33 (17-59) U/L ALT 19 (4-49) U/L Alkaline Phosphatase 62 (38-126) U/L Troponin I (0.000-0.034) ng/mL Total Protein 5.8 L (6.3-8.2) g/dL Albumin 3.6 (3.5-5.0) g/dL 12/13/22 Range/Units 17:47 WBC (3.8-10.6) k/uL RBC (4.30-5.90) m/uL Hgb (13.0-17.5) gm/dL Hct (39.0-53.0) % MCV (80.0-100.0) fL MCH (25.0-35.0) pg MCHC (31.0-37.0) g/dL RDW (11.5-15.5) % Plt Count (150-450) k/uL MPV Hypochromasia PT (9.0-12.0) sec INR (<1.2) APTT (22.0-30.0) sec Sodium (137-145) mmol/L Potassium (3.5-5.1) mmol/L Chloride (98-107) mmol/L Carbon Dioxide (22-30) mmol/L Anion Gap mmol/L BUN (9-20) mg/dL Creatinine (0.66-1.25) mg/dL Est GFR (CKD-EPI)AfAm (>60 ml/min/1.73 sqM) Est GFR (CKD-EPI)NonAf (>60 ml/min/1.73 sqM) Glucose (74-99) mg/dL Calcium (8.4-10.2) mg/dL Magnesium (1.6-2.3) mg/dL Total Bilirubin (0.2-1.3) mg/dL AST (17-59) U/L ALT (4-49) U/L Alkaline Phosphatase (38-126) U/L Troponin I <0.012 (0.000-0.034) ng/mL Total Protein (6.3-8.2) g/dL Albumin (3.5-5.0) g/dL Disposition Clinical Impression: Bradycardia Disposition: ADMITTED IP TO THIS [facility] Referrals: Sahil Acosta MD [Primary Care Provider] - 1-2 days Time of Disposition: 19:35
[2022-12-13 18:06] LABS: HCT 36.2 % (39.0-53.0); HGB 11.4 gm/dL (13.0-17.5); Hypochromasia Marked; MCH 27.7 pg (25.0-35.0); MCHC 31.4 g/dL (31.0-37.0); MCV 88.2 fL (80.0-100.0); Mean Platelet Volume 8.1; Platelet Count 127 k/uL (150-450); RBC 4.11 m/uL (4.30-5.90); RDW 14.1 % (11.5-15.5); WBC 29.2 k/uL (3.8-10.6)
--- NOTE | 2022-12-13 18:11 | XR ---
EXAMINATION TYPE: XR chest 2V DATE OF EXAM: 12/13/2022 6:05 PM COMPARISON: Chest radiographs from TECHNIQUE: XR chest 2V Frontal and lateral views of the chest. CLINICAL INDICATION:Male, 87 years old with history of Chest Pain; FINDINGS: Lungs/Pleura: There is flattening of the diaphragm with increased lucency of the lungs. No evidence o f pneumothorax, pleural effusion or focal consolidation. Pulmonary vascularity: Unremarkable. Heart/mediastinum: Cardiomediastinal silhouette is prominent in size. Musculoskeletal: No acute osseous pathology. Other findings: Surgical clips of the gastroesophageal junction. IMPRESSION: 1. No acute cardiopulmonary disease process. 2. COPD changes.
[2022-12-13 18:20] LABS: ALT 19 U/L (4-49); AST 33 U/L (17-59); African American GFR (CKD) 90 (>60 ml/min/1.73 sqM); Albumin 3.6 g/dL (3.5-5.0); Alkaline Phosphatase 62 U/L (38-126); Anion Gap 7 mmol/L; Blood Urea Nitrogen 16 mg/dL (9-20); Calcium 8.6 mg/dL (8.4-10.2); Carbon Dioxide 25 mmol/L (22-30); Chloride 104 mmol/L (98-107); Glucose 121 mg/dL (74-99); Magnesium 2.4 mg/dL (1.6-2.3); Non-African American GFR(CKD) 77 (>60 ml/min/1.73 sqM); Potassium 5.4 mmol/L (3.5-5.1); Sodium 136 mmol/L (137-145); Total Bilirubin 0.6 mg/dL (0.2-1.3); Total Protein 5.8 g/dL (6.3-8.2)
[2022-12-13 18:27] LABS: INR 1.1 (<1.2); Partial Thromboplastin Time 24.5 sec (22.0-30.0); Prothrombin Time 11.3 sec (9.0-12.0)
--- NOTE | 2022-12-13 19:04 | CT ---
EXAMINATION TYPE: CT brain wo con CT DLP: 1132 mGycm, Automated exposure control for dose reduction was used. DATE OF EXAM: 12/13/2022 6:55 PM COMPARISON: 09/22/2016. CLINICAL INDICATION:Male, 87 years old with history of Headache, headache TECHNIQUE: Brain: Axial CT images of the brain were obtained with coronal and sagittal reformats created and rev iewed. Contrast used: None. Oral contrast used: None. FINDINGS: Brain: Extra-axial spaces: No abnormal extra-axial fluid collections. Ventricular system: Dilatation in proportion to cerebral atrophy. Cerebral parenchyma: Cerebral atrophy. No acute intraparenchymal hemorrhage or mass effect. The watson -white junction is well differentiated. Scattered hypoattenuating areas are seen within the white mat ter. Cerebellum: Unremarkable. Mass effect: No evidence of midline shift. Intracranial vasculature: Atherosclerotic calcifications of the intracranial vessels. Soft tissues: Normal. Calvarium/osseous structures: No depressed skull fracture. Paranasal sinuses and mastoid air cells: Mild scattered paranasal sinus disease. Visualized orbits: Bilateral aphakia IMPRESSION: 1. No acute intracranial process. 2. Nonspecific white matter changes, likely secondary to chronic small vessel ischemic disease.
[2022-12-13] MEDS ORDERED: NITROGLYCERIN SL TABS 0.4 MG TAB SUBLINGUAL PRN (19:51)
[2022-12-13 19:54] LABS: Lymphocytes # (M) 26.57 k/uL (1.0-4.8); Monocytes # (M) 1.46 k/uL (0-1.0); Neutrophils # (M) 1.17 k/uL (1.3-7.7); Neutrophils % (M) 4 %; Nucleated Red Blood Cells 0 /100 WBC (0-0); Total Cells Counted 100
[2022-12-13] MEDS ORDERED: MECLIZINE 12.5 MG TAB PO PRN (21:34)
[2022-12-13] MEDS ORDERED: KETOTIFEN 0.025% OPHTH DROPS 5 ML BTL BOTH EYES PRN (21:34)
[2022-12-13] MEDS ORDERED: ARTIFICIAL TEARS-HYPROMELLOSE DROPS 15 ML BTL BOTH EYES PRN (21:34)
[2022-12-13] MEDS ORDERED: ACETAMINOPHEN TAB 325 MG TAB PO PRN (21:36)
[2022-12-13] MEDS: LATANOPROST 0.005% OPHTH DROPS 2.5 ML BTL BOTH EYES SCH (22:30)
[2022-12-13] MEDS: PANTOPRAZOLE 40 MG TABLET PO SCH (22:30)
[2022-12-14] MEDS: PANTOPRAZOLE 40 MG TABLET PO SCH (06:23)
[2022-12-14] MEDS ORDERED: ASPIRIN 325 MG TAB PO SCH (09:00)
[2022-12-14 09:10] LABS: HCT 38.9 % (39.0-53.0); HGB 11.7 gm/dL (13.0-17.5); Hypochromasia Marked; MCH 27.3 pg (25.0-35.0); MCHC 30.1 g/dL (31.0-37.0); MCV 90.6 fL (80.0-100.0); Mean Platelet Volume 7.9; Platelet Count 122 k/uL (150-450); RBC 4.29 m/uL (4.30-5.90)
[2022-12-14 09:21] LABS: Potassium 5.2 mmol/L (3.5-5.1)
[2022-12-14 09:22] LABS: African American GFR (CKD) >90 (>60 ml/min/1.73 sqM); Anion Gap 4 mmol/L; Blood Urea Nitrogen 15 mg/dL (9-20); Calcium 8.9 mg/dL (8.4-10.2); Carbon Dioxide 27 mmol/L (22-30); Chloride 104 mmol/L (98-107); Glucose 98 mg/dL (74-99); Non-African American GFR(CKD) 78 (>60 ml/min/1.73 sqM); Sodium 135 mmol/L (137-145)
[2022-12-14 11:10] LABS: Chol/HDL Ratio 3.44 Ratio; LDL Cholesterol,Calculated 64.4 mg/dL (0.0-131.0); VLDL Calculation 11.52 mg/dL (5.00-40.00)
--- NOTE | 2022-12-14 12:37 | P.CRDCN ---
History of Present Illness History of present illness: HISTORY OF PRESENT ILLNESS: This is a 87-year-old male with a past medical history significant for GERD and persistent atrial fibrillation. Patient used to follow in the office with Dr. Reddy but has not been seen since 2019. We have been asked to see the patient i n consultation for bradycardia. Patient examined at the bedside. Patient states on Tuesday night he began to have pain in his left shoulder. He reports that his left fingers went numb and he was noticing decreased motor strength. He also reports having a headache and felt like his head was "going to explode". States his symptoms lasted for about 10 hours and then resolved on its own. He states that he felt slightly dizzy which he has a history of. He is prescribed Antivert on an outpatient basis. He went to urgent care for his symptoms. An EKG was performed which showed his heart rate was in the 40s and he was sent to the hospital for further evaluation. Patient currently denies dizziness or lightheadedness. He denies shortness of breath or chest pain. Telemetry reveals atrial fibrillation with a heart rate in the 50s. The patient is not on anticoagulation secondary to history of hemorrhagic gastritis. The patient has not prescribed any AV oziel blocking agents. The patient states he is very active at home and exercises daily. He denies having any episodes of syncope. * EKG reveals atrial fibrillation with slow ventricular rate * Chest xray negative for acute process. COPD changes. * Current home cardiac medications include none REVIEW OF SYSTEMS: At the time of my exam: CONSTITUTIONAL: Denies fever or chills. HEENT: Denies blurred vision, vision changes, or eye pain. Denies hemoptysis CARDIOVASCULAR: Denies chest pain. Denies orthopnea. Denies PND. Denies palpitations RESPIRATORY: Denies shortness of breath. GASTROINTESTINAL: Denies abdominal pain. Denies nausea or vomiting. HEMATOLOGIC: Denies bleeding disorders. GENITOURINARY: Denies any blood in urine. SKIN: Denies pruitis. Denies rash. PHYSICAL EXAM: VITAL SIGNS: Reviewed. GENERAL: Well-developed in no acute distress. HEENT: Head is normocephalic. Pupils are equal, round. Sclerae anicteric. Mucous membranes of the mouth are moist. Neck supple. No JVD or thyromegaly LUNGS: Respirations even and unlabored. Lungs essentially clear to auscultation bilaterally. HEART: Bradycardic. Irregular rate and rhythm. S1 and S2 heard. ABDOMEN: Soft. Nondistended. Nontender. EXTREMITIES: Normal range of motion. No clubbing or cyanosis. Peripheral pulses intact. No lower extremity edema NEUROLOGIC: Awake and alert. Oriented x 3. ASSESSMENT: Headache with left sided numbness, rule out neurologic etiology Persistent atrial fibrillation, not on anticoagulation secondary to his GI bleeding Hyperkalemia History of hemorrhagic gastritis History of GERD PLAN: Patients symptoms unlikely to be related to bradycardia. Patients HRs in the 50s with no evidence of long pauses, heart block, or severe bradycardia. No indication for PPM at this time Check TSH Continue telemetry monitoring Monitor potassium Consult neurology for evaluation Recommend event monitor at follow up visit in the office Further recommendations pending patient course Nurse practitioner note has been reviewed by physician. Signing provider agrees with the documented findings, assessment, and plan of care. Past Medical History Past Medical History: Atrial Fibrillation, Cancer, Eye Disorder, GERD/Reflux Additional Past Medical History / Comment(s): CLL, iron deficiency anemia - receives iron infusions, gastric ulcer, bilateral glaucoma, BPH with surgery, sinus issues, gait imbalance at times - uses no assistive device History of Any Multi-Drug Resistant Organisms: None Reported Past Surgical History: Cholecystectomy, Hernia Repair, Prostate Surgery Additional Past Surgical History / Comment(s): EGDs/colonoscopies, hemigastrectomy d/t ulcer, TURP, inguinal hernia surgery-laterallity unknown, bilateral cornea transplant/cataracts removed, L knee arthroscopy, Past Anesthesia/Blood Transfusion Reactions: Postoperative Nausea & Vomiting (PONV) Additional Past Anesthesia/Blood Transfusion Reaction / Comment(s): Pt states he has endured some nausea/vomiting after anesthesia. Past Psychological History: No Psychological Hx Reported Additional Psychological History / Comment(s): Pt resides with his spouse. He uses no assistive device. He drives. Smoking Status: Never smoker Past Alcohol Use History: None Reported Additional Past Alcohol Use History / Comment(s): Pt smoked for a short period of time, [id number]. Past Drug Use History: None Reported - Past Family History Father History Unknown: Yes Family Medical History: Respiratory Disorder Additional Family Medical History / Comment(s): Father had "lung problems from smoking." Mother History Unknown: Yes Family Medical History: Dementia Medications and Allergies Home Medications Medication Instructions Recorded Confirmed Type Omeprazole 20 mg PO DAILY 03/24/15 12/13/22 History Propylene Glycol/Peg 400/Pf 1 drop BOTH EYES BID PRN 01/03/17 12/13/22 History [Systane 0.3-0.4% Eye Drop] Bimatoprost [Lumigan 0.01% Ophth 1 drop BOTH EYES HS 12/13/22 12/13/22 History Soln] Cholecalciferol (Vitamin D3) 1,250 mcg PO Q30D 12/13/22 12/13/22 History [Vitamin D3] Ketotifen 0.025% Ophth Soln 1 drop BOTH EYES BID PRN 12/13/22 12/13/22 History [Zaditor] Meclizine [Antivert] 6.25 mg PO QID PRN 12/13/22 12/13/22 History Allergies Allergy/AdvReac Type Severity Reaction Status Date / Time No Known Allergies Allergy Verified 12/13/22 17:45 Physical Exam Vitals: Vital Signs Temp Pulse Pulse Resp BP BP Pulse Ox 12/14/22 04:00 97.6 F 52 L 123/62 96 12/13/22 23:37 98.0 F 61 148/79 99 12/13/22 22:25 98.2 F 45 L 160/74 99 12/13/22 20:00 42 L 16 140/81 96 12/13/22 18:58 50 L 18 114/64 98 12/13/22 17:06 98.2 F 50 L 20 126/61 99 Intake and Output 12/13/22 12/14/22 12/14/22 22:59 06:59 14:59 Output Total 0 Balance 0 Output: Urine 0 Other: Voiding Method Toilet Toilet # Voids 0 Weight 60.328 kg Results 12/14/22 08:47 12/14/22 08:47 Cardiac Enzymes 12/13/22 12/13/22 12/13/22 Range/Units 17:47 17:47 20:54 AST 33 (17-59) U/L Troponin I <0.012 <0.012 (0.000-0.034) ng/mL 12/13/22 Range/Units 23:51 AST (17-59) U/L Troponin I <0.012 (0.000-0.034) ng/mL Coagulation 12/13/22 Range/Units 17:47 PT 11.3 (9.0-12.0) sec APTT 24.5 (22.0-30.0) sec CBC 12/13/22 Range/Units 17:47 WBC 29.2 H (3.8-10.6) k/uL RBC 4.11 L (4.30-5.90) m/uL Hgb 11.4 L (13.0-17.5) gm/dL Hct 36.2 L (39.0-53.0) % Plt Count 127 L (150-450) k/uL Comprehensive Metabolic Panel 12/13/22 Range/Units 17:47 Sodium 136 L (137-145) mmol/L Potassium 5.4 H (3.5-5.1) mmol/L Chloride 104 (98-107) mmol/L Carbon Dioxide 25 (22-30) mmol/L BUN 16 (9-20) mg/dL Creatinine 0.88 (0.66-1.25) mg/dL Glucose 121 H (74-99) mg/dL Calcium 8.6 (8.4-10.2) mg/dL AST 33 (17-59) U/L ALT 19 (4-49) U/L Alkaline Phosphatase 62 (38-126) U/L Total Protein 5.8 L (6.3-8.2) g/dL Albumin 3.6 (3.5-5.0) g/dL Current Medications Generic Name Dose Route Start Last Admin Trade Name Freq PRN Reason Stop Dose Admin Acetaminophen 650 mg 12/13/22 21:36 Acetaminophen Tab 325 Mg Tab PO Q6HR PRN Fever and/ or Pain Artificial Tears 1 drops 12/13/22 21:34 Artificial Tears-Hypromellose Drops 15 Ml Btl BOTH EYES BID PRN DRY EYES Aspirin 325 mg 12/14/22 09:00 Aspirin 325 Mg Tab PO DAILY DEMAR Ergocalciferol 1,250 mcg 12/25/22 09:00 Ergocalciferol 1,250 Mcg (50,000 Iu) Capsule PO Q30D DEMAR Ketotifen Fumarate 1 drops 12/13/22 21:34 Ketotifen 0.025% Ophth Drops 5 Ml Btl BOTH EYES BID PRN Allergy Symptoms Latanoprost 1 drops 12/13/22 21:45 12/13/22 22:30 Latanoprost 0.005% Ophth Drops 2.5 Ml Btl BOTH EYES Not Given HS [facility] Meclizine HCl 6.25 mg 12/13/22 21:34 Meclizine 12.5 Mg Tab PO QID PRN Vertigo Nitroglycerin 0.4 mg 12/13/22 19:51 Nitroglycerin Sl Tabs 0.4 Mg Tab SUBLINGUAL Q5M PRN Chest Pain Pantoprazole Sodium 40 mg 12/13/22 21:45 12/14/22 06:23 Pantoprazole 40 Mg Tablet PO 40 mg [id number] [facility] Administration Intake and Output 12/13/22 12/14/22 12/14/22 22:59 06:59 14:59 Output Total 0 Balance 0 Output: Urine 0 Other: Voiding Method Toilet Toilet # Voids 0 Weight 60.328 kg 12/13/22 17:47 12/13/22 17:47
--- NOTE | 2022-12-14 13:29 | P.CNNES ---
History of Present Illness Consult date: 12/14/22 Requesting physician: Marylou Lee Reason for Consult: headache, left hand numbness History of Present Illness: Patient is a 87-year-old right-handed male with history of atrial fibrillation, currently not on anticoagulation came to the hospital yesterday at 4:59 PM for headache and left hand paresthesias. 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 He also felt stiffness of the neck and the shoulder was aching and he kept on rubbing his shoulder. He also noticed numbness and tingling of the fingertips of left hand, almost like needles sticking in the fingers. Patient was also complaining of pain in the shoulders, like "head will burst open". He states his shoulders felt funny, left more than right. He denies any numbness or tingling of the facial region, or the lower extremities. He denies any slurred speech, facial droop or problem with the vision. He stayed home, suffered with this headache until he came to ER yesterday at 4:59 PM. Patient's is about 5-6 hours into hospital arrival, the symptoms gradually went away. At present he has no headache or paresthesias. Patient has history of atrial fibrillation for last 5 years, cannot use blood thinner because of GI bleed. Patient had a stomach ulcer that required partial gastrectomy. He also had another surgery for strengthening related hernia. Vital signs on arrival 126/61, pulse rate 50, temperature 98.2. EKG shows atrial fibrillation with slow ventricular response. Chest x-ray showed no acute cardiopulmonary disease. COPD changes. CT head revealed no acute intracranial processes. Nonspecific white matter changes, likely secondary to chronic small vessel ischemic disease. Patient had a previous normal EEG on 09/23/2016. Patient had a previous normal MRA of the brain on 09/22/2016. MRI of the brain previously on 09/03/2015 showed mild chronic-appearing white matter ischemic Changes. No acute intracranial process. Patient had a carotid Doppler also on 09/22/2016 which showed minimal plaquing right carotid bulb. Intimal thickening is present bilaterally. No significant flow limiting stenosis. Antegrade flow in both vertebral arteries. Blood test shows normal PT/PTT, WBC 29.2, hemoglobin 11.4, platelets 127. Sodium 136 potassium 5.4, normal renal and hepatic panel, negative troponin. TSH is normal. Patient has history of atrial fibrillation for last 5 years currently not on any anticoagulants. Patient says that he did try Eliquis for atrial fibrillation, but developed bleeding ulcer requiring surgery in around 2017. He states his primary physician told him that he cannot take any blood thinners. At present he takes omeprazole, meclizine, vitamin D3. Patient denies any tobacco use, alcohol, denies any diabetes or blood pressure. He does not know about his cholesterol status. Denies any history of strokes or TIA. Telemetry monitoring showing atrial fibrillation. Review of Systems Constitutional: Denies chills, Denies fever Eyes: denies blurred vision, denies diplopia, denies pain Ears: bilateral: decreased hearing (Uses hearing aids), tinnitus, deny: earache Ears, nose, mouth and throat: Reports headache, Reports nasal congestion, Reports post-nasal drip, Denies sore throat Cardiovascular: Denies chest pain, Denies shortness of breath Respiratory: Reports excessive sputum, Denies cough Gastrointestinal: Denies abdominal pain, Denies diarrhea, Denies nausea, Denies vomiting Musculoskeletal: Reports neck stiffness, Denies low back pain, Denies myalgias Integumentary: Denies pruritus, Denies rash Neurological: Reports as per HPI Psychiatric: Denies anxiety, Denies depression Endocrine: Denies fatigue, Denies weight change Hematologic/Lymphatic: Reports easy bleeding, Reports easy bruising Past Medical History Past Medical History: Atrial Fibrillation, Cancer, Eye Disorder, GERD/Reflux Additional Past Medical History / Comment(s): CLL, iron deficiency anemia - receives iron infusions, gastric ulcer, bilateral glaucoma, BPH with surgery, sinus issues, gait imbalance at times - uses no assistive device History of Any Multi-Drug Resistant Organisms: None Reported Past Surgical History: Cholecystectomy, Hernia Repair, Prostate Surgery Additional Past Surgical History / Comment(s): EGDs/colonoscopies, hemigastrectomy d/t ulcer, TURP, inguinal hernia surgery-laterallity unknown, bilateral cornea transplant/cataracts removed, L knee arthroscopy, Past Anesthesia/Blood Transfusion Reactions: Postoperative Nausea & Vomiting (PONV) Additional Past Anesthesia/Blood Transfusion Reaction / Comment(s): Pt states he has endured some nausea/vomiting after anesthesia. Past Psychological History: No Psychological Hx Reported Additional Psychological History / Comment(s): Pt resides with his spouse. He uses no assistive device. He drives. Smoking Status: Never smoker Past Alcohol Use History: None Reported Additional Past Alcohol Use History / Comment(s): Pt smoked for a short period of time, [id number]. Past Drug Use History: None Reported - Past Family History Father History Unknown: Yes Family Medical History: Respiratory Disorder Additional Family Medical History / Comment(s): Father had "lung problems from smoking." Mother History Unknown: Yes Family Medical History: Dementia Medications and Allergies Home Medications Medication Instructions Recorded Confirmed Type Omeprazole 20 mg PO DAILY 03/24/15 12/13/22 History Propylene Glycol/Peg 400/Pf 1 drop BOTH EYES BID PRN 01/03/17 12/13/22 History [Systane 0.3-0.4% Eye Drop] Bimatoprost [Lumigan 0.01% Ophth 1 drop BOTH EYES HS 12/13/22 12/13/22 History Soln] Cholecalciferol (Vitamin D3) 1,250 mcg PO Q30D 12/13/22 12/13/22 History [Vitamin D3] Ketotifen 0.025% Ophth Soln 1 drop BOTH EYES BID PRN 12/13/22 12/13/22 History [Zaditor] Meclizine [Antivert] 6.25 mg PO QID PRN 12/13/22 12/13/22 History Allergies Allergy/AdvReac Type Severity Reaction Status Date / Time No Known Allergies Allergy Verified 12/13/22 17:45 Physical Examination - Vital Signs Vital Signs: Vital Signs Temp Pulse Pulse Resp BP BP Pulse Ox 12/14/22 04:00 97.6 F 52 L 123/62 96 12/13/22 23:37 98.0 F 61 148/79 99 12/13/22 22:25 98.2 F 45 L 160/74 99 12/13/22 20:00 42 L 16 140/81 96 12/13/22 18:58 50 L 18 114/64 98 12/13/22 17:06 98.2 F 50 L 20 126/61 99 Intake and Output 12/13/22 12/14/22 12/14/22 22:59 06:59 14:59 Output Total 0 Balance 0 Output: Urine 0 Other: Voiding Method Toilet Toilet # Voids 0 Weight 60.328 kg Patient is an elderly male, very pleasant, in no acute distress. Patient is alert awake oriented to time place and person. Speech and language functions are normal. Patient can name and repeat very well. No aphasia or dysarthria. Attention, concentration and fund of knowledge is adequate. On cranial nerve examination, pupils are equal, round and reacting to light, visual noriega are full on confrontation, with no neglect on double simultaneous depression. Extraocular muscles are intact with no nystagmus. Face is symmetric, tongue protrudes to the midline. Palatal elevation and sensation normal, hearing is moderately decreased, uses hearing aids and shoulder shrug normal, facial sensation normal. On muscle strength testing, there is no pronator drift and the strength is normal in arms and legs distally and proximally. Deep tendon reflexes are symmetric 1+ at the biceps, 1+ brachioradialis, 1 at the knees, 0 ankles and plantars downgoing. Sensory to touch is equal with no neglect on double simultaneous stimulation. Cerebellar function showed no ataxia for [id number] testing. No dysdiadochokinesia. No ataxia for [id number] testing on either side. Tone and bulk of muscles normal. Gait deferred.. On general examination, there is no carotid bruit or murmur, S1-S2 audible. Chest is clear on consultation. Abdomen is soft nontender. No organomegaly, bowel sounds present. Peripheral pulses are present. No edema. Results - Laboratory Findings CBC and BMP: 12/14/22 08:47 12/14/22 08:47 Abnormal Lab Findings: Abnormal Labs 12/13/22 12/13/22 12/14/22 17:47 17:47 08:47 WBC 29.2 H 32.0 H RBC 4.11 L 4.29 L Hgb 11.4 L 11.7 L Hct 36.2 L 38.9 L MCHC 30.1 L Plt Count 127 L 122 L Neutrophils # (Manual) 1.17 L Lymphocytes # (Manual) 26.57 H Monocytes # (Manual) 1.46 H Sodium 136 L Potassium 5.4 H Glucose 121 H Magnesium 2.4 H Total Protein 5.8 L 12/14/22 08:47 WBC RBC Hgb Hct MCHC Plt Count Neutrophils # (Manual) Lymphocytes # (Manual) Monocytes # (Manual) Sodium 135 L Potassium 5.2 H Glucose Magnesium Total Protein Assessment and Plan Assessment: * Possible TIA manifesting with sudden onset of global headache, and left hand paresthesias, that lasted for about 16 hours. Rule out CVA. Patient had sudden onset headache, raising concern for possible aneurysm, although he had MRA of the brain performed few years ago, which was negative for any aneurysm. * Atrial fibrillation, currently not on anticoagulants. * History of CLL, * Iron deficiency anemia, * History of gastric ulcer, status post partial gastrectomy 2016 * Hard of hearing, uses hearing aids Plan: * Patient will undergo MRI of the brain and evaluate for an acute stroke. * Patient had an MRA of the brain performed 09/22/2016, which was negative for any aneurysm. No need to repeat. CT head showed no subarachnoid hemorrhage. * Patient has chronic atrial fibrillation, but currently not on any antiplatelets or anticoagulants, due to his history of GI bleed. * Cardiology on board for atrial fibrillation. 2-D echo pending. * Further management based upon above test results. * Neurology will follow. Thank you for the consult.
--- NOTE | 2022-12-14 14:22 | P.HPIM ---
History of Present Illness H&P Date: 12/14/22 History of present illness; patient is a 87-year-old gentleman with past medical history significant for chronic lymphocytic leukemia who presented to the ER because of headache that started last night. Patient stated that the headache was very severe, located in the frontal area, patient was also complaining of bilateral shoulder pain and also tingling in his fingers of both hands. Patient also complaining of this left hand feeling heavy. Denied any slurred speech. Denied any facial droop. There was no complain of loss of consciousness. No complain of weakness of lower extremities. Denied any fall or abnormal gait. Because the symptoms, patient came to the urgent care who sent them to the ER. Complaining of lightheadedness and dizziness. Initial lab work done in the ER showed 29.2, hemoglobin 11.4, platelet, 27, sodium 136, potassium 5.4, BUN 16, creatinine 0.88, troponin 0.012 EKG done in the ER showed bradycardia, no ST segment elevation or T-wave inve rsion seen CT brain negative for any acute intracranial process Patient admitted to medicine service REVIEW OF SYSTEMS: CONSTITUTIONAL: No fever, no malaise, no fatigue. HEENT: As in HPI CARDIOVASCULAR: No chest pain, orthopnea, PND, no palpitations, no syncope. PULMONARY: No shortness of breath, no cough, no hemoptysis. GASTROINTESTINAL: No diarrhea, no nausea, no vomiting, no abdominal pain. NEUROLOGICAL: As mentioned in HPI HEMATOLOGICAL: Denies any bleeding or petechiae. GENITOURINARY: Denies any burning micturition, frequency, or urgency. MUSCULOSKELETAL/RHEUMATOLOGICAL: Denies any joint pain, swelling, or any muscle pain. ENDOCRINE: Denies any polyuria or polydipsia. The rest of the 14-point review of systems is negative. PHYSICAL EXAMINATION: GENERAL: The patient is alert and oriented x3, not in any acute distress. Well developed, well nourished. HEENT: Pupils are round and equally reacting to light. EOMI. No scleral icterus. No conjunctival pallor. Normocephalic, atraumatic. No pharyngeal erythema. No thyromegaly. CARDIOVASCULAR: S1 and S2 present. No murmurs, rubs, or gallops. PULMONARY: Chest is clear to auscultation, no wheezing or crackles. ABDOMEN: Soft, nontender, nondistended, normoactive bowel sounds. No palpable organomegaly. MUSCULOSKELETAL: No joint swelling or deformity. EXTREMITIES: No cyanosis, clubbing, or pedal edema. NEUROLOGICAL: Gross neurological examination did not reveal any focal deficits. SKIN: No rashes. Assessment and plan Headache TIA Bradycardia Persistent atrial fibrillation Left hand numbness History of CLL Hyperkalemia History of hemorrhagic gastritis History of GERD Monitor vital signs Monitor CBC Monitor CMP Continue telemetry monitoring Trend troponin Hold AV oziel blocking agents Ordered EEG consult cardiology Consult neurology Labs and medication were reviewed.. Continue same treatment. Continue with symptomatic treatment. Resume home medication. Monitor labs and vitals. DVT and GI prophylaxis. Further recommendations as per clinical course of the patient Dictation was produced using [employer] dictation software. please excuse any grammatical, word or spelling errors. Past Medical History Past Medical History: Atrial Fibrillation, Cancer, Eye Disorder, GERD/Reflux Additional Past Medical History / Comment(s): CLL, iron deficiency anemia - receives iron infusions, gastric ulcer, bilateral glaucoma, BPH with surgery, sinus issues, gait imbalance at times - uses no assistive device History of Any Multi-Drug Resistant Organisms: None Reported Past Surgical History: Cholecystectomy, Hernia Repair, Prostate Surgery Additional Past Surgical History / Comment(s): EGDs/colonoscopies, hemigastrectomy d/t ulcer, TURP, inguinal hernia surgery-laterallity unknown, bilateral cornea transplant/cataracts removed, L knee arthroscopy, Past Anesthesia/Blood Transfusion Reactions: Postoperative Nausea & Vomiting (PONV) Additional Past Anesthesia/Blood Transfusion Reaction / Comment(s): Pt states he has endured some nausea/vomiting after anesthesia. Past Psychological History: No Psychological Hx Reported Additional Psychological History / Comment(s): Pt resides with his spouse. He uses no assistive device. He drives. Smoking Status: Never smoker Past Alcohol Use History: None Reported Additional Past Alcohol Use History / Comment(s): Pt smoked for a short period of time, [id number]. Past Drug Use History: None Reported - Past Family History Father History Unknown: Yes Family Medical History: Respiratory Disorder Additional Family Medical History / Comment(s): Father had "lung problems from smoking." Mother History Unknown: Yes Family Medical History: Dementia Medications and Allergies Home Medications Medication Instructions Recorded Confirmed Type Omeprazole 20 mg PO DAILY 03/24/15 12/13/22 History Propylene Glycol/Peg 400/Pf 1 drop BOTH EYES BID PRN 01/03/17 12/13/22 History [Systane 0.3-0.4% Eye Drop] Bimatoprost [Lumigan 0.01% Ophth 1 drop BOTH EYES HS 12/13/22 12/13/22 History Soln] Cholecalciferol (Vitamin D3) 1,250 mcg PO Q30D 12/13/22 12/13/22 History [Vitamin D3] Ketotifen 0.025% Ophth Soln 1 drop BOTH EYES BID PRN 12/13/22 12/13/22 History [Zaditor] Meclizine [Antivert] 6.25 mg PO QID PRN 12/13/22 12/13/22 History Allergies Allergy/AdvReac Type Severity Reaction Status Date / Time No Known Allergies Allergy Verified 12/13/22 17:45 Physical Exam Vitals: Vital Signs Temp Pulse Pulse Resp BP BP Pulse Ox 12/14/22 04:00 97.6 F 52 L 123/62 96 12/13/22 23:37 98.0 F 61 148/79 99 12/13/22 22:25 98.2 F 45 L 160/74 99 12/13/22 20:00 42 L 16 140/81 96 12/13/22 18:58 50 L 18 114/64 98 12/13/22 17:06 98.2 F 50 L 20 126/61 99 Intake and Output 12/13/22 12/14/22 12/14/22 22:59 06:59 14:59 Output Total 0 Balance 0 Output: Urine 0 Other: Voiding Method Toilet Toilet # Voids 0 Weight 60.328 kg Results CBC & Chem 7: 12/14/22 08:47 12/14/22 08:47 Labs: Abnormal Lab Results - Last 24 Hours (Table) 12/13/22 12/13/22 12/14/22 Range/Units 17:47 17:47 08:47 WBC 29.2 H 32.0 H (3.8-10.6) k/uL RBC 4.11 L 4.29 L (4.30-5.90) m/uL Hgb 11.4 L 11.7 L (13.0-17.5) gm/dL Hct 36.2 L 38.9 L (39.0-53.0) % MCHC 30.1 L (31.0-37.0) g/dL Plt Count 127 L 122 L (150-450) k/uL Neutrophils # (Manual) 1.17 L (1.3-7.7) k/uL Lymphocytes # (Manual) 26.57 H (1.0-4.8) k/uL Monocytes # (Manual) 1.46 H (0-1.0) k/uL Sodium 136 L (137-145) mmol/L Potassium 5.4 H (3.5-5.1) mmol/L Glucose 121 H (74-99) mg/dL Magnesium 2.4 H (1.6-2.3) mg/dL Total Protein 5.8 L (6.3-8.2) g/dL 12/14/22 Range/Units 08:47 WBC (3.8-10.6) k/uL RBC (4.30-5.90) m/uL Hgb (13.0-17.5) gm/dL Hct (39.0-53.0) % MCHC (31.0-37.0) g/dL Plt Count (150-450) k/uL Neutrophils # (Manual) (1.3-7.7) k/uL Lymphocytes # (Manual) (1.0-4.8) k/uL Monocytes # (Manual) (0-1.0) k/uL Sodium 135 L (137-145) mmol/L Potassium 5.2 H (3.5-5.1) mmol/L Glucose (74-99) mg/dL Magnesium (1.6-2.3) mg/dL Total Protein (6.3-8.2) g/dL Thrombosis Risk Factor Assmnt - Choose All That Apply Any of the Below Risk Factors Present?: No Other Risk Factors: Yes Each Risk Factor Represents 3 Points: Age 75 years or older Other congenital or acquired thrombophilia - If yes, enter type in comment: No Thrombosis Risk Factor Assessment Total Risk Factor Score: 3 Thrombosis Risk Factor Assessment Level: Moderate Risk
--- NOTE | 2022-12-14 18:13 | MR ---
EXAMINATION TYPE: MR brain wo con DATE OF EXAM: 12/14/2022 4:16 PM CLINICAL INDICATION:Male, 87 years old with history of Stroke/TIA, cephalgia, COMPARISON: 12/13/2022 CT, 09/03/2015 MRI. TECHNIQUE: Multi planar, multi sequence imaging was performed through the brain including: T1, T2, In version recovery, Diffusion weighted imaging, and gradient echo imaging. No gadolinium was given. FINDINGS: Small focus of restricted diffusion within the left frontal lobe cortex series 303 image 20 8 with associated low ADC signal. There is an additional area within the right occipital lobe with hi gh DWI signal high FLAIR signal without definitive associated low ADC signal. There is cerebral atrop hy with proportional dilation of ventricular system. Scattered foci of high T2 signal intensity are s een within the periventricular white matter. Midline structures show no abnormality. The susceptibili ty weighted images reveals punctate microhemorrhages in the right cerebellar hemisphere and scattered throughout the cerebrum bilaterally right greater than left. The bone marrow signal is within normal limits. Paranasal sinuses and mastoid air cells: Mild mucosal thickening of the right maxillary sinus. Visualized orbits: Bilaterally aphakia IMPRESSION: 1. Left frontal lobe cortex acute/subacute CVA. New from prior MRI. 2. Age-indeterminate injury involving the right occipital lobe cortex with questionable restricted di ffusion. New from prior MRI. 3. Scattered foci of blooming artifact compatible with microhemorrhage, correlate for cerebral amyloi d angiopathy. 4. Nonspecific white matter changes, likely secondary to small vessel ischemic disease.
[2022-12-14] MEDS: LATANOPROST 0.005% OPHTH DROPS 2.5 ML BTL BOTH EYES SCH (20:07)
[2022-12-15] MEDS: PANTOPRAZOLE 40 MG TABLET PO SCH (06:20)
[2022-12-15 09:16] VITALS: RESP 16
[2022-12-15] MEDS: APIXABAN 2.5 MG TABLET PO SCH ×2 (11:01→20:05)
--- NOTE | 2022-12-15 12:42 | P.PN ---
Subjective Progress Note Date: 12/15/22 patient is a 87-year-old gentleman with past medical history significant for chronic lymphocytic leukemia who presented to the ER because of headache that started last night. Patient stated that the headache was very severe, located in the frontal area, patient was also complaining of bilateral shoulder pain and also tingling in his fingers of both hands. Patient also complaining of this left hand feeling heavy. Denied any slurred speech. Denied any facial droop. There was no complain of loss of consciousness. No complain of weakness of lower extremities. Denied any fall or abnormal gait. Because the symptoms, patient came to the urgent care who sent them to the ER. Complaining of lightheadedness and dizziness. Initial lab work done in the ER showed 29.2, hemoglobin 11.4, platelet, 27, sodium 136, potassium 5.4, BUN 16, creatinine 0.88, troponin 0.012 EKG done in the ER showed bradycardia, no ST segment elevation or T-wave inversion seen CT brain negative for any acute intracranial process Patient admitted to medicine service 12/15. Patient seen and examined. MRI brain done showed left frontal lobe cortex acute/subacute CVA, age indeterminate injury involving right occipital lobe. Scattered foci of [place] artifact compatible with microhemorrhage Denies any lethargy or weakness. Denies any weakness of any extremity REVIEW OF SYSTEMS: CONSTITUTIONAL: No fever, no malaise,. CARDIOVASCULAR: No chest pain, no palpitations, no syncope. PULMONARY: No shortness of breath, no cough, GASTROINTESTINAL: No diarrhea, no nausea, no vomiting, no abdominal pain. NEUROLOGICAL: No headaches, no weakness, PHYSICAL EXAMINATION: GENERAL: The patient is alert and oriented x3, not in any acute distress. Well developed, well nourished. HEENT: Pupils are round and equally reacting to light. EOMI. No scleral icterus. No conjunctival pallor. Normocephalic, atraumatic. No pharyngeal erythema. No thyromegaly. CARDIOVASCULAR: S1 and S2 present. No murmurs, rubs, or gallops. PULMONARY: Chest is clear to auscultation, no wheezing or crackles. ABDOMEN: Soft, nontender, nondistended, normoactive bowel sounds. No palpable organomegaly. MUSCULOSKELETAL: No joint swelling or deformity. EXTREMITIES: No cyanosis, clubbing, or pedal edema. NEUROLOGICAL: Gross neurological examination did not reveal any focal deficits. SKIN: No rashes. Assessment and plan CVA Bradycardia Persistent atrial fibrillation Left hand numbness History of CLL Hyperkalemia History of hemorrhagic gastritis History of GERD Monitor vital signs Monitor CBC Monitor CMP Continue telemetry monitoring MRI brain done showed left frontal lobe cortex acute/subacute CVA, age indeterminate injury involving right occipital lobe. Scattered foci of [place] artifact compatible with microhemorrhage Trend troponin Hold AV oziel blocking agents Ordered EEG Neurology following Cardiology following Labs and medication were reviewed.. Continue same treatment. Continue with symptomatic treatment. Resume home medication. Monitor labs and vitals. DVT and GI prophylaxis. Further recommendations as per clinical course of the patient Dictation was produced using [employer] dictation software. please excuse any grammatical, word or spelling errors. Objective - Vital Signs Vital signs: Vital Signs Temp 97.7 F 12/15/22 09:15 Pulse 52 L 12/15/22 09:15 Resp 16 12/15/22 09:15 BP 125/56 12/15/22 09:15 Pulse Ox 99 12/15/22 09:15 FiO2 Intake & Output 12/14/22 12/15/22 12/15/22 18:59 06:59 18:59 Intake Total 578 10 360 Balance 578 10 360 Intake: IV 10 Invasive Line 1 10 Oral 578 360 Other: Voiding Method Toilet Toilet # Voids 2 2 - Labs CBC & Chem 7: 12/14/22 08:47 12/14/22 08:47 Labs: Abnormal Lab Results - Last 24 Hours (Table) 12/13/22 Range/Units 23:51 HDL Cholesterol 31.10 L (40.00-60.00) mg/dL
--- NOTE | 2022-12-15 12:54 | P.PN ---
Subjective HISTORY OF PRESENT ILLNESS: This is a 87-year-old male with a past medical history significant for GERD and persistent atrial fibrillation. Patient used to follow in the office with Dr. Reddy but has not been seen since 2019. We have been asked to see the patient in consultation for bradycardia. Patient examined at the bedside. Patient states on Tuesday night he began to have pain in his left shoulder. He reports that his left fingers went numb and he was noticing decreased motor strength. He also reports having a headache and felt like his head was "going to explode". States his symptoms lasted for about 10 hours and then resolved on its own. He states that he felt slightly dizzy which he has a history of. He is prescribed Antivert on an outpatient basis. He went to urgent care for his symptoms. An EKG was performed which showed his heart rate was in the 40s and he was sent to the hospital for further evaluation. Patient currently denies dizziness or lightheadedness. He denies shortness of breath or chest pain. Telemetry reveals atrial fibrillation with a heart rate in the 50s. The patient is not on anticoagulation secondary to history of hemorrhagic gastritis. The patient has not prescribed any AV oziel blocking agents. The patient states he is very active at home and exercises daily. He denies having any episodes of syncope. * EKG reveals atrial fibrillation with slow ventricular rate * Chest xray negative for acute process. COPD changes. * Current home cardiac medications include none 12/15/2022 Patient examined this morning at the bedside. Patient states he did not sleep very well yesterday and feels groggy this morning. He denies chest pain or pressure. He denies shortness of breath. He denies any numbness in his left upper extremity. He denies a headache this morning. Patient underwent MRI yesterday revealing left frontal lobe cortex acute/subacute CVA. PHYSICAL EXAM: VITAL SIGNS: Reviewed. GENERAL: Well-developed in no acute distress. HEENT: Head is normocephalic. Pupils are equal, round. Sclerae anicteric. Mucous membranes of the mouth are moist. Neck supple. No JVD or thyromegaly LUNGS: Respirations even and unlabored. Lungs essentially clear to auscultation bilaterally. HEART: Bradycardic. Irregular rate and rhythm. S1 and S2 heard. ABDOMEN: Soft. Nondistended. Nontender. EXTREMITIES: Normal range of motion. No clubbing or cyanosis. Peripheral pulses intact. No lower extremity edema NEUROLOGIC: Awake and alert. Oriented x 3. ASSESSMENT: Headache with left sided numbness, MRI positive for acute/subacute CVA of left frontal lobe cortex Persistent atrial fibrillation, not on anticoagulation secondary to his GI bleeding Hyperkalemia History of hemorrhagic gastritis History of GERD History of CLL Acute/subacute CVA of left frontal lobe cortex, per MRI of the brain PLAN: Patients symptoms unrelated to bradycardia. Patients HRs in the 50s with no e vidence of long pauses, heart block, or severe bradycardia. No indication for PPM at this time Discussed MRI findings with neurology. Neurology is not requesting MELANEI at this time. They are agreeable to initiating anticoagulation. Discussed MRI findings and recommendations for anticoagulation with patient. The patient states he required two bowel surgeries secondary to GI bleeding but since having surgery he has had no further issues with bleeding. He is agreeable to trying anticoagulation again. This was also discussed with his at the bedside who is agreeable. Discussed signs and symptoms of bleeding with patient and his spouse. We will begin Eliquis 2.5mg BID. Continue to monitor hemoglobin. Recommend event monitor from cardiology office at discharge Further recommendations pending patient course Nurse practitioner note has been reviewed by physician. Signing provider agrees with the documented findings, assessment, and plan of care. Objective - Vital Signs Vital signs: Vital Signs Temp 98.0 F 12/15/22 11:40 Pulse 49 L 12/15/22 11:40 Resp 16 12/15/22 11:40 BP 126/63 12/15/22 11:40 Pulse Ox 100 12/15/22 11:40 FiO2 Intake & Output 12/14/22 12/15/22 12/15/22 18:59 06:59 18:59 Intake Total 578 10 360 Balance 578 10 360 Intake: IV 10 Invasive Line 1 10 Oral 578 [id number] Other: Voiding Method Toilet Toilet Toilet # Voids 2 2 - Labs CBC & Chem 7: 12/14/22 08:47 12/14/22 08:47
--- NOTE | 2022-12-15 13:01 | CA ---
Transthoracic Echo Report Name: Isidoro Gomez Age: 87 Gender: M : 1935 Exam Date: 12/14/2022 15:00 Exam Location: [place] [facility] Ht (in): 69 Wt (lb): 133 Ordering Physician: Marylou Lee Attending/Referring Phys: [id number], Jesus Research Psychologist Leonora Gusman [facility] Procedure CPT: Indications: LV function, hx of afib Cardiac Hx: Technical Quality: Fair Contrast 1: Total Dose (mL): Contrast 2: Total Dose (mL): MEASUREMENTS (Male / Female) Normal Values 2D ECHO LV Diastolic Diameter PLAX 5.3 cm 4.2 - 5.9 / 3.9 - 5.3 cm LV Systolic Diameter PLAX 3.2 cm IVS Diastolic Thickness 0.7 cm 0.6 - 1.0 / 0.6 - 0.9 cm LVPW Diastolic Thickness 0.9 cm 0.6 - 1.0 / 0.6 - 0.9 cm LV Relative Wall Thickness 0.3 LVOT Diameter 2.0 cm Ascending Aorta Diameter 3.8 cm M-MODE Aortic Root Diameter MM 3.7 cm LA Systolic Diameter MM 4.4 cm LA Ao Ratio MM 1.2 AV Cusp Separation MM 1.6 cm DOPPLER AV Peak Velocity 158.2 cm/s AV Peak Gradient 10.0 mmHg AV Mean Velocity 105.1 cm/s AV Mean Gradient 5.2 mmHg AV Velocity Time Integral 36.9 cm AI Peak Velocity 415.8 cm/s AI Peak Gradient 69.2 mmHg AI Pressure Half Time 585.4 ms LVOT Peak Velocity 128.6 cm/s LVOT Peak Gradient 6.6 mmHg LVOT Velocity Time Integral 30.4 cm LVOT Stroke Volume 95.2 cm??? LVOT Stroke Volume Index 54.8 ml/m??? LVOT Cardiac Index 2511.5 cm???/min???m??? AV Area Cont Eq vti 2.6 cm??? AV Area Cont Eq pk 2.5 cm??? LV E' Lateral Velocity 12.1 cm/s LV E' Septal Velocity 7.2 cm/s TR Peak Velocity 304.6 cm/s TR Peak Gradient 37.1 mmHg Right Atrial Pressure 3.0 mmHg Pulmonary Artery Systolic Pressu 40.1 mmHg Right Ventricular Systolic Press 40.1 mmHg FINDINGS Left Ventricle Left ventricular wall thickness normal. Left ventricular cavity size normal. Low normal left ventricular systolic function with no obvious regional wall motion abnormalities. Left ventricular ejection fraction is estimated at 50- 55%. Right Ventricle Mild right ventricular dilatation. Mild pulmonary hypertension. Right Atrium Severe right atrial dilatation. Left Atrium Severe left atrial dilatation. Mitral Valve Mitral valve thickened. Moderate mitral annular calcification. Mild mitral regurgitation. Aortic Valve Trileaflet aortic valve. Aortic valve sclerosis. Mild aortic regurgitation. Tricuspid Valve Structurally normal tricuspid valve. Moderate tricuspid regurgitation. Pulmonic Valve Structurally normal pulmonic valve. No pulmonic regurgitation. Pericardium No pericardial effusion. Aorta Aorta at upper limits of normal. CONCLUSIONS Normal LV size and systolic function. LVEF estimated at 55% No obvious regional wall motion abnormality Severe biatrial dilatation Mild RV dilatation with RVSP estimated at 45 mmHg Mild to moderate aortic regurgitation Mild mitral regurgitation No prior echo to compare with Previewed by: Dr Nguyễn Major (Electronically Signed) Final Date: 15 December 2022 13:00
[2022-12-15] MEDS: LATANOPROST 0.005% OPHTH DROPS 2.5 ML BTL BOTH EYES SCH (20:05)
[2022-12-15] MEDS ORDERED: ATORVASTATIN 40 MG TAB PO SCH (21:00)
--- NOTE | 2022-12-15 23:33 | P.PN ---
Subjective Progress Note Date: 12/15/22 Patient was seen for a follow-up. Patient is fully dressed walking in the room comfortably, without any balance issues, with no device. He is aware that he will be going home tomorrow. Denies any focal symptoms. Patient states the headache is about 90% gone. He feels very comfortable. Objective - Vital Signs Vital signs: Vital Signs Temp 98.0 F 12/15/22 11:40 Pulse 49 L 12/15/22 11:40 Resp 16 12/15/22 11:40 BP 126/63 12/15/22 11:40 Pulse Ox 100 12/15/22 11:40 FiO2 Intake & Output 12/14/22 12/15/22 12/15/22 18:59 06:59 18:59 Intake Total 578 10 360 Balance 578 10 360 Intake: IV 10 Invasive Line 1 10 Oral [id number] [id number] Other: Voiding Method Toilet Toilet Toilet # Voids 2 2 - Exam Patient's mental status, speech and language functions are normal. Muscle strength is normal. No ataxia. Sensations normal. - Labs CBC & Chem 7: 12/14/22 08:47 12/14/22 08:47 Assessment and Plan Assessment: * Acute ischemic stroke involving the left frontal lobe cortex acute/subacute CVA. CVA most likely embolic in nature. Patient had MRA of the brain performed 09/22/2016, which was negative for any aneurysm. * Atrial fibrillation, currently not on anticoagulants. * History of CLL, * Iron deficiency anemia, * History of gastric ulcer, status post partial gastrectomy 2016 * Hard of hearing, uses hearing aids Plan: * MRI of the brain revealed left frontal lobe cortex acute/subacute CVA. Age indeterminate injury involving the right occipital lobe cortex with questionable restricted diffusion. New from prior MRI. Scattered foci of blooming artifact compatible with microhemorrhage, correlate for cerebral amyloid angiopathy. Nonspecific white matter changes, likely secondary to small vessel ischemic disease. I personally reviewed MRI, agree with the findings. The CVAs likely related to embolic event from atrial fibrillation. * 2-D echo revealed normal left ventricle size and systolic function with LVEF 55%. No obvious regional wall motion abnormality. Severe biatrial dilation. Mild right ventricular dilation. Mild to moderate AR. Mild MR. * Patient's stroke is likely related to atrial fibrillation. Patient needs to be on anticoagulation to prevent recurrent ischemic stroke. Patient also has blooming artifact noted in the brain MRI, suggestive of microhemorrhage. Patient is high risk for recurrent ischemic stroke related to atrial fibrilla tion. However he is also at risk of intracerebral hemorrhage from amyloid angiopathy with anticoagulation. Given the risks and benefits, the benefits of anticoagulation probably higher than the risks. Discussed with the patient, and he understands. Discussed with cardiology, and patient started on low-dose Eliquis 2.5 mg twice a day. No antiplatelet medication. Patient will be until noon on Protonix 40 mg daily. He states that he takes omeprazole at home. * Patient had an MRA of the brain performed 09/22/2016, which was negative for any aneurysm. No need to repeat. CT head showed no subarachnoid hemorrhage. * Lipid panel with cholesterol 107, LDL 64, HDL 31 and triglycerides 57. LDL is < 70. Therefore no indication for statins. * Blood pressure is well-controlled 126/63. * Neurologically clear for discharge in the morning if he remains stable overnight.
[2022-12-16] MEDS: PANTOPRAZOLE 40 MG TABLET PO SCH (06:25)
[2022-12-16] MEDS: APIXABAN 2.5 MG TABLET PO SCH (09:17)
[2022-12-16 11:45] VITALS: BP 127/70; PULSE 63; TEMP 97.7
[2022-12-16 12:19] LABS: ALT 17 U/L (4-49); AST 31 U/L (17-59); African American GFR (CKD) 75 (>60 ml/min/1.73 sqM); Albumin 3.6 g/dL (3.5-5.0); Alkaline Phosphatase 75 U/L (38-126); Anion Gap 4 mmol/L; Blood Urea Nitrogen 17 mg/dL (9-20); Calcium 8.9 mg/dL (8.4-10.2); Carbon Dioxide 30 mmol/L (22-30); Chloride 102 mmol/L (98-107); Glucose 92 mg/dL (74-99); Non-African American GFR(CKD) 65 (>60 ml/min/1.73 sqM); Sodium 136 mmol/L (137-145); Total Bilirubin 0.7 mg/dL (0.2-1.3); Total Protein 5.8 g/dL (6.3-8.2)
--- NOTE | 2022-12-16 13:08 | P.PN ---
Subjective HISTORY OF PRESENT ILLNESS: This is a 87-year-old male with a past medical history significant for GERD and persistent atrial fibrillation. Patient used to follow in the office with Dr. Reddy but has not been seen since 2019. We have been asked to see the patient in consultation for bradycardia. Patient examined at the bedside. Patient states on Tuesday night he began to have pain in his left shoulder. He reports that his left fingers went numb and he was noticing decreased motor strength. He also reports having a headache and felt like his head was "going to explode". States his symptoms lasted for about 10 hours and then resolved on its own. He states that he felt slightly dizzy which he has a history of. He is prescribed Antivert on an outpatient basis. He went to urgent care for his symptoms. An EKG was performed which showed his heart rate was in the 40s and he was sent to the hospital for further evaluation. Patient currently denies dizziness or lightheadedness. He denies shortness of breath or chest pain. Telemetry reveals atrial fibrillation with a heart rate in the 50s. The patient is not on anticoagulation secondary to history of hemorrhagic gastritis. The patient has not prescribed any AV oziel blocking agents. The patient states he is very active at home and exercises daily. He denies having any episodes of syncope. * EKG reveals atrial fibrillation with slow ventricular rate * Chest xray negative for acute process. COPD changes. * Current home cardiac medications include none 12/15/2022 Patient examined this morning at the bedside. Patient states he did not sleep very well yesterday and feels groggy this morning. He denies chest pain or pressure. He denies shortness of breath. He denies any numbness in his left upper extremity. He denies a headache this morning. Patient underwent MRI yesterday revealing left frontal lobe cortex acute/subacute CVA. 12/16/2022 Patient examined this morning at the bedside. Patient denies chest pain or pr essure. He denies shortness of breath. Vital signs are stable. PHYSICAL EXAM: VITAL SIGNS: Reviewed. GENERAL: Well-developed in no acute distress. HEENT: Head is normocephalic. Pupils are equal, round. Sclerae anicteric. Mucous membranes of the mouth are moist. Neck supple. No JVD or thyromegaly LUNGS: Respirations even and unlabored. Lungs essentially clear to auscultation bilaterally. HEART: Bradycardic. Irregular rate and rhythm. S1 and S2 heard. ABDOMEN: Soft. Nondistended. Nontender. EXTREMITIES: Normal range of motion. No clubbing or cyanosis. Peripheral pu lses intact. No lower extremity edema NEUROLOGIC: Awake and alert. Oriented x 3. 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 Signing provider agrees with the documented findings, assessment, and plan of care. Objective - Vital Signs Vital signs: Vital Signs Temp 97.7 F 12/16/22 11:35 Pulse 63 12/16/22 11:35 Resp 16 12/16/22 11:35 BP 127/70 12/16/22 11:35 Pulse Ox 98 12/16/22 11:35 FiO2 Intake & Output 12/15/22 12/16/22 12/16/22 18:59 06:59 18:59 Intake Total 1078 180 Balance 1078 180 Intake: Oral 1078 180 Other: Voiding Method Toilet Toilet Toilet # Voids 1 - Labs CBC & Chem 7: 12/14/22 08:47 12/16/22 10:33
--- NOTE | 2022-12-16 13:29 | P.DS ---
Providers Date of admission: 12/15/22 12:38 Expected date of discharge: 12/16/22 Attending physician: Анна Theodore Consults: 12/13/22 19:51 Consult Physician Urgent Consulting Provider: [facility] Consult Reason/Comments: Bradycardia Do you want consulting provider notified?: Yes 12/14/22 09:02 Consult Physician Routine Consulting Provider: Alvin Anaya Consult Reason/Comments: headache, left hand numbness Do you want consulting provider notified?: Yes Primary care physician: Sahil [facility] Course: 87-year-old gentleman with past medical history significant for chronic lymphocytic leukemia who presented to the ER because of headache that started last night. Patient stated that the headache was very severe, located in the frontal area, patient was also complaining of bilateral shoulder pain and also tingling in his fingers of both hands. Patient also complaining of this left hand feeling heavy. Denied any slurred speech. Denied any facial droop. There was no complain of loss of consciousness. No complain of weakness of lower extremities. Denied any fall or abnormal gait. Because the symptoms, patient came to the urgent care who sent them to the ER. Complaining of lightheadedness and dizziness. Initial lab work done in the ER showed 29.2, hemoglobin 11.4, platelet, 27, sodium 136, potassium 5.4, BUN 16, creatinine 0.88, troponin 0.012 EKG done in the ER showed bradycardia, no ST segment elevation or T-wave inversion seen CT brain negative for any acute intracranial process Patient admitted to medicine service 12/15. Patient seen and examined. MRI brain done showed left frontal lobe cortex acute/subacute CVA, age indeterminate injury involving right occipital lobe. Scattered foci of [place] artifact compatible with microhemorrhage Denies any lethargy or weakness. Denies any weakness of any extremity 12/16: Patient seen and evaluated bedside, patient alert and oriented 4 at bedside as well. No focal deficit noted patient does complain of blurred vision occasionally which improves. Patient started on Eliquis. Discharged home in stable condition outpatient follow-up with PCP PHYSICAL EXAMINATION: GENERAL: The patient is alert and oriented x3, not in any acute distress. Well developed, well nourished. HEENT: Pupils are round and equally reacting to light. EOMI. No scleral icterus. No conjunctival pallor. Normocephalic, atraumatic. No pharyngeal erythema. No thyromegaly. CARDIOVASCULAR: S1 and S2 present. No murmurs, rubs, or gallops. PULMONARY: Chest is clear to auscultation, no wheezing or crackles. ABDOMEN: Soft, nontender, nondistended, normoactive bowel sounds. No palpable organomegaly. MUSCULOSKELETAL: No joint swelling or deformity. EXTREMITIES: No cyanosis, clubbing, or pedal edema. NEUROLOGICAL: Gross neurological examination did not reveal any focal deficits. SKIN: No rashes. Assessment and plan Acute CVA Persistent atrial fibrillation with slow vent Response History of CLL Hyperkalemia History of hemorrhagic gastritis History of GERD MRI brain done showed left frontal lobe cortex acute/subacute CVA, age indeterminate injury involving right occipital lobe. Scattered foci of [place] artifact compatible with microhemorrhage Consult obtained from neurology and cardiology Patient started on Eliquis Started on low-dose statin Patient to be discharged home with outpatient follow-up with PCP Echocardiogram completed negative for intracardiac thrombus Plan - Discharge Summary Discharge Rx Participant: No New Discharge Prescriptions: New Atorvastatin [Lipitor] 20 mg PO HS 30 Days #30 tablet Apixaban [Eliquis] 2.5 mg PO BID 30 Days #60 tab Continue Omeprazole 20 mg PO DAILY Propylene Glycol/Peg 400/Pf [Systane 0.3-0.4% Eye Drop] 1 drop BOTH EYES BID PRN PRN Reason: Allergy Symptoms Meclizine [Antivert] 6.25 mg PO QID PRN PRN Reason: Vertigo Bimatoprost [Lumigan 0.01% Ophth Soln] 1 drop BOTH EYES HS Ketotifen 0.025% Ophth Soln [Zaditor] 1 drop BOTH EYES BID PRN PRN Reason: Allergy Symptoms Cholecalciferol (Vitamin D3) [Vitamin D3] 1,250 mcg PO Q30D Discharge Medication List Omeprazole 20 mg PO DAILY 03/24/15 [History] Propylene Glycol/Peg 400/Pf [Systane 0.3-0.4% Eye Drop] 1 drop BOTH EYES BID PRN 01/03/17 [History] Bimatoprost [Lumigan 0.01% Ophth Soln] 1 drop BOTH EYES HS 12/13/22 [History] Cholecalciferol (Vitamin D3) [Vitamin D3] 1,250 mcg PO Q30D 12/13/22 [History] Ketotifen 0.025% Ophth Soln [Zaditor] 1 drop BOTH EYES BID PRN 12/13/22 [Histor y] Meclizine [Antivert] 6.25 mg PO QID PRN 12/13/22 [History] Apixaban [Eliquis] 2.5 mg PO BID 30 Days #60 tab 12/16/22 [Rx] Atorvastatin [Lipitor] 20 mg PO HS 30 Days #30 tablet 12/16/22 [Rx] Follow up Appointment(s)/Referral(s): Sahil Acosta MD [Primary Care Provider] - 1-2 days Michael Blount DO [STAFF PHYSICIAN] - 2 Weeks Activity/Diet/Wound Care/Special Instructions: Patient to pickling solution maker event monitor from the cardiology office after discharge Discharge Disposition: HOME SELF-CARE
[2022-12-25] MEDS ORDERED: ERGOCALCIFEROL 1,250 MCG (50,000 IU) CAPSULE PO SCH (09:00)
== END 2022-12-16 14:16 | disposition home or self-care (01) | DRG 65 ==
LOC: EC 16:59 → 3SCARD 19:54 → OBSVTOIN 12-15 12:38
PROVIDERS: ADMIT Hospitalist; ATTEND Hospitalist
DX: I63.449 Cerebral infarction due to embolism of unspecified cerebellar artery (principal); I48.19 Other persistent atrial fibrillation; Z28.311 Partially vaccinated for COVID-19; Z85.6 Personal history of leukemia; Z87.891 Personal history of nicotine dependence; Z97.4 Presence of external hearing-aid; K21.9 Gastro-esophageal reflux disease without esophagitis; H91.90 Unspecified hearing loss, unspecified ear; R20.0 Anesthesia of skin; Z94.7 Corneal transplant status; E87.5 Hyperkalemia; R26.89 Other abnormalities of gait and mobility; M25.511 Pain in right shoulder; M25.512 Pain in left shoulder; R00.1 Bradycardia, unspecified; J44.9 Chronic obstructive pulmonary disease, unspecified; Z87.19 Personal history of other diseases of the digestive system; N40.0 Benign prostatic hyperplasia without lower urinary tract symptoms; D50.9 Iron deficiency anemia, unspecified; Z90.3 Acquired absence of stomach [part of]; Z90.79 Acquired absence of other genital organ(s); H40.9 Unspecified glaucoma; R26.9 Unspecified abnormalities of gait and mobility; Z79.82 Long term (current) use of aspirin; Z79.899 Other long term (current) drug therapy
CPT/HCPCS: 36415; 70450; 70551; 71046; 80048; 80053; 80061; 83735; 84443; 84484; 85025; 85027; 85610; 85730; 93005; 93306; 96360; 99285

== ENCOUNTER 2024-04-01 12:27 | Emergency (ER) | payer MEDICARE ==
--- NOTE | 2024-04-01 13:08 | ED ---
General Adult HPI - General Chief complaint: GI Bleed Stated complaint: urogential Time Seen by Provider: 04/01/24 12:46 Source: patient, family Mode of arrival: ambulatory Limitations: no limitations - History of Present Illness Initial comments: Dictation was produced using [employer] dictation software. please excuse any grammatical, word or spelling errors. Chief Complaint: 88-year-old male presents with black stools History of Present Illness: Patient is an 88-year-old male presents to the ER for black stools for 3 to 4 days. Today started to feel little lightheaded. States that he takes anticoagulation medications. Denies any abdominal pain. Has noticed that he has had consistently dark stools for the last few days during every bowel movement. Denies any chest pain or shortness of breath. No fever constitutional symptoms. The ROS documented in this emergency department record has been reviewed and confirmed by me. Those systems with pertinent positive or negative responses have been documented in the HPI. All other systems are other negative and/or noncontributory. - Related Data Home Medications Medication Instructions Recorded Confirmed Omeprazole 20 mg PO DAILY 03/24/15 12/13/22 Propylene Glycol/Peg 400/Pf 1 drop BOTH EYES BID PRN 01/03/17 12/13/22 [Systane 0.3-0.4% Eye Drop] Bimatoprost [Lumigan 0.01% Ophth 1 drop BOTH EYES HS 12/13/22 12/13/22 Soln] Cholecalciferol (Vitamin D3) 1,250 mcg PO Q30D 12/13/22 12/13/22 [Vitamin D3 (1250 Mcg = 50,000 Iu)] Ketotifen 0.025% Ophth Soln 1 drop BOTH EYES BID PRN 12/13/22 12/13/22 [Zaditor] Meclizine [Antivert] 6.25 mg PO QID PRN 12/13/22 12/13/22 Previous Rx's Medication Instructions Recorded Apixaban [Eliquis] 2.5 mg PO BID 30 Days #60 tab 12/16/22 Atorvastatin [Lipitor] 20 mg PO HS 30 Days #30 tablet 12/16/22 Pantoprazole [Protonix] 40 mg PO DAILY 14 Days #14 tab 04/01/24 Allergies Allergy/AdvReac Type Severity Reaction Status Date / Time No Known Allergies Allergy Verified 04/01/24 12:37 Review of Systems ROS Statement: Those systems with pertinent positive or pertinent negative responses have been documented in the HPI. ROS Other: All systems not noted in ROS Statement are negative. Past Medical History Past Medical History: Atrial Fibrillation, Cancer, Eye Disorder, GERD/Reflux Additional Past Medical History / Comment(s): CLL, iron deficiency anemia - receives iron infusions, gastric ulcer, bilateral glaucoma, BPH with surgery, sinus issues, gait imbalance at times - uses no assistive device History of Any Multi-Drug Resistant Organisms: None Reported Past Surgical History: Cholecystectomy, Hernia Repair, Prostate Surgery Additional Past Surgical History / Comment(s): EGDs/colonoscopies, hemigastrectomy d/t ulcer, TURP, inguinal hernia surgery-laterallity unknown, bilateral cornea transplant/cataracts removed, L knee arthroscopy, Past Anesthesia/Blood Transfusion Reactions: Postoperative Nausea & Vomiting (PONV) Additional Past Anesthesia/Blood Transfusion Reaction / Comment(s): Pt states he has endured some nausea/vomiting after anesthesia. Past Psychological History: No Psychological Hx Reported Smoking Status: Never smoker Past Alcohol Use History: None Reported Past Drug Use History: None Reported - Past Family History Father History Unknown: Yes Family Medical History: Respiratory Disorder Additional Family Medical History / Comment(s): Father had "lung problems from smoking." Mother History Unknown: Yes Family Medical History: Dementia General Exam - General Exam Comments Initial Comments: PHYSICAL EXAM: General Impression: Alert and oriented x3, not in acute distress HEENT: Normocephalic atraumatic, extra-ocular movements intact, pupils equal and reactive to light bilaterally, mucous membranes moist. Cardiovascular: Heart regular rate and rhythm Chest: Able to complete full sentences, no retractions, no tachypnea Abdomen: abdomen soft, non-tender, non-distended, no organomegaly Musculoskeletal: Pulses present and equal in all extremities, no peripheral edema Motor: no focal deficits noted Neurological: CN II-XII grossly intact, no focal motor or sensory deficits noted Skin: Intact with no visualized rashes Psych: Normal affect and mood Rectal exam: Melanotic stool on digital rectal exam Limitations: no limitations Course Vital Signs 04/01/24 12:37 Temperature 97.5 F L Pulse Rate 51 L Respiratory 18 Rate Blood Pressure 114/61 O2 Sat by Pulse 100 Oximetry - Reevaluation(s) Reevaluation #1: 04/01/24 14:46 Medical consultation note from September 2016 was reviewed showing that patient has history of chronic lymphocytic leukemia EKG Findings - EKG Comments: EKG Findings:: My EKG interpretation: Ventricular rate 46, A-fib, QRS 83, QTc 4 15. No PA prolongation, no QTC prolongation, no ST or T-wave changes noted. EKG compared to December 14, 2022 showing no changes. Overall, this EKG is unremarkable Medical Decision Making - Medical Decision Making Was pt. sent in by a medical professional or institution (, PA, BLANKING PRESS OPERATOR, urgent care, hospital, or residential...) When possible be specific @ -No Did you speak to anyone other than the patient for history (EMS, parent, family, police, friend...)? What history was obtained from this source @ - at the bedside as described above Did you review nursing and triage notes (agree or disagree)? Why? @ -I reviewed and agree with nursing and triage notes Were old charts reviewed (outside hosp., previous admission, EMS record, old EKG, old radiological studies, urgent care reports/EKG's, residential records)? Report findings @ -No old charts were reviewed Differential Diagnosis (chest pain, altered mental status, abdominal pain women, abdominal pain men, vaginal bleeding, musculoskeletal, weakness, fever, dyspnea, syncope, headache, dizziness, GI bleed, back pain, seizure, CVA, palpatations, mental health)? @ -Differential GI Bleed: Esophageal varices, aortoenteric fistula, Hollie-Manuel, gastritis, peptic ulcer disease, diverticulosis, inflammatory bowel disease, hemorrhoids, fissure, colitis, malignancy, Meckel's diverticulum, this is not meant to be an all- inclusive list. EKG interpreted by me (3pts min.). @ -See above X-rays interpreted by me (1pt min.). @ -None done CT interpreted by me (1pt min.). @ -None done U/S interpreted by me (1pt. min.). @ -None done What testing was considered but not performed or refused? (CT, X-rays, U/S, labs)? Why? @ -None What meds were considered but not given or refused? Why? @ -None Was smoking cessation discussed for >3mins.? @ -No Were there social determinants of health that impacted care today? How? (Homelessness, low income, unemployed, alcoholism, drug addiction, transportation, low edu. Level, literacy, decrease access to med. care, alf, rehab)? @ -No Was there de-escalation of care discussed even if they declined (Discuss DNR or withdrawal of care, Hospice)? DNR status @ -No What co-morbidities impacted this encounter? (DM, HTN, Smoking, COPD, CAD, Cancer, CVA, ARF, Chemo, Hep., AIDS, mental health diagnosis, sleep apnea, morbid obesity)? @ -Anticoagulation use Was patient admitted / discharged? Hospital course, mention meds given and route, prescriptions, significant lab abnormalities, going to OR and other pertinent info. @ -80-year-old male presents to the emergency department for black stools. Vital signs upon arrival are within acceptable limits. Patient well-appearing at the bedside. Denies any symptoms of anemia. Denies any abdominal pain. Physical examination is otherwise benign. Laboratory evaluation shows stable CBC stable metabolic panel. Stool occult blood test is positive. Patient does take anticoagulation medications reevaluated bedside at 3:00 PM disposition options were discussed. He was offered transfer to [facility] given that we do not have GI coverage. States that he does not want to go there due to the weather. He was offered hospital admission here for hemoglobin monitoring states that he feels well and wants to be discharged. Patient does follow-up with Dr. Pugh. Patient discharged told to follow-up with primary care doctor and GI specialist. Return precautions discussed. He is satisfied with that plan and understands that he should return should he have any worsening s ymptoms. Did you discuss the management of the patient with other professionals (professionals i.e. , PA, BLANKING PRESS OPERATOR, lab, RT, psych nurse, social services director, lime kiln worker, teacher, nuclear medicine officer, family service caseworker)? Give summary @ -No Was critical care preformed (if so, how long)? @ -No Undiagnosed new problem with uncertain prognosis? @ -No Drug Therapy requiring intensive monitoring for toxicity (Heparin, Nitro, Insulin, Cardizem)? @ -No Were any procedures done? @ -No Diagnosis/symptom? Acute, or Chronic, or Acute on Chronic? Uncomplicated (without systemic symptoms) or Complicated (systemic symptoms)? @ -GI bleed Side effects of treatment? @ -No Exacerbation, Progression, or Severe Exacerbation? @ -No Poses a threat to life or bodily function? How? (Chest pain, USA, DC, pneumonia, PE, COPD, DKA, ARF, appy, cholecystitis, CVA, Diverticulitis, Homicidal, Suicidal, threat to staff... and all critical care pts) @ -yes - Lab Data Result diagrams: 04/01/24 13:11 04/01/24 13:11 Lab Results 04/01/24 04/01/24 04/01/24 Range/Units 13:11 13:11 13:11 WBC 27.3 H (3.8-10.6) k/uL RBC 3.88 L (4.30-5.90) m/uL Hgb 12.0 L (13.0-17.5) gm/dL Hct 37.7 L (39.0-53.0) % MCV 97.3 (80.0-100.0) fL MCH 30.9 (25.0-35.0) pg MCHC 31.8 (31.0-37.0) g/dL RDW 16.2 H (11.5-15.5) % Plt Count 137 L (150-450) k/uL MPV 7.7 Neutrophils % (Manual) 14 % Lymphocytes % (Manual) 84 % Monocytes % (Manual) 2 % Neutrophils # (Manual) 3.82 (1.3-7.7) k/uL Lymphocytes # (Manual) 22.93 H (1.0-4.8) k/uL Monocytes # (Manual) 0.55 (0-1.0) k/uL Nucleated RBCs 0 (0-0) /100 WBC Manual Slide Review Performed Hypochromasia Moderate Anisocytosis Slight PT 11.6 (10.0-12.5) sec INR 1.1 (<1.2) APTT 23.6 (22.0-30.0) sec Sodium (137-145) mmol/L Potassium (3.5-5.1) mmol/L Chloride (98-107) mmol/L Carbon Dioxide (22-30) mmol/L Anion Gap mmol/L BUN (9-20) mg/dL Creatinine (0.66-1.25) mg/dL Est GFR (CKD-EPI)AfAm (>60 ml/min/1.73 sqM) Est GFR (CKD-EPI)NonAf (>60 ml/min/1.73 sqM) Glucose (74-99) mg/dL Calcium (8.4-10.2) mg/dL Total Bilirubin (0.2-1.3) mg/dL AST (17-59) U/L ALT (4-49) U/L Alkaline Phosphatase (38-126) U/L Total Protein (6.3-8.2) g/dL Albumin (3.5-5.0) g/dL Stool Occult Blood Positive (Negative) Blood Type Blood Type Recheck Bld Type Recheck Status Antibody Screen Spec Expiration Date 04/01/24 04/01/24 Range/Units 13:11 13:11 WBC (3.8-10.6) k/uL RBC (4.30-5.90) m/uL Hgb (13.0-17.5) gm/dL Hct (39.0-53.0) % MCV (80.0-100.0) fL MCH (25.0-35.0) pg MCHC (31.0-37.0) g/dL RDW (11.5-15.5) % Plt Count (150-450) k/uL MPV Neutrophils % (Manual) % Lymphocytes % (Manual) % Monocytes % (Manual) % Neutrophils # (Manual) (1.3-7.7) k/uL Lymphocytes # (Manual) (1.0-4.8) k/uL Monocytes # (Manual) (0-1.0) k/uL Nucleated RBCs (0-0) /100 WBC Manual Slide Review Hypochromasia Anisocytosis PT (10.0-12.5) sec INR (<1.2) APTT (22.0-30.0) sec Sodium 137 (137-145) mmol/L Potassium 4.7 (3.5-5.1) mmol/L Chloride 104 (98-107) mmol/L Carbon Dioxide 28 (22-30) mmol/L Anion Gap 5 mmol/L BUN 17 (9-20) mg/dL Creatinine 0.87 (0.66-1.25) mg/dL Est GFR (CKD-EPI)AfAm 89 (>60 ml/min/1.73 sqM) Est GFR (CKD-EPI)NonAf 77 (>60 ml/min/1.73 sqM) Glucose 105 H (74-99) mg/dL Calcium 8.9 (8.4-10.2) mg/dL Total Bilirubin 0.6 (0.2-1.3) mg/dL AST 29 (17-59) U/L ALT 16 (4-49) U/L Alkaline Phosphatase 69 (38-126) U/L Total Protein 5.7 L (6.3-8.2) g/dL Albumin 4.0 (3.5-5.0) g/dL Stool Occult Blood (Negative) Blood Type O Positive Blood Type Recheck O Pos Bld Type Recheck Status No Antibody Screen NEGATIVE Spec Expiration Date 04/04/20242310 Disposition Clinical Impression: GI bleed Disposition: HOME SELF-CARE Condition: Fair Instructions (If sedation given, give patient instructions): Gastrointestinal Bleeding (ED) Prescriptions: Pantoprazole [Protonix] 40 mg PO DAILY 14 Days #14 tab Is patient prescribed a controlled substance at d/c from ED?: No Referrals: Sahil Acosta MD [Primary Care Provider] - 1-2 days Rachelle Painter MD [STAFF PHYSICIAN] - 1-2 days Time of Disposition: 15:01
[2024-04-01 13:25] LABS: Anisocytosis Slight; HCT 37.7 % (39.0-53.0); Hypochromasia Moderate; MCH 30.9 pg (25.0-35.0); MCHC 31.8 g/dL (31.0-37.0); MCV 97.3 fL (80.0-100.0); Mean Platelet Volume 7.7; Platelet Count 137 k/uL (150-450); RBC 3.88 m/uL (4.30-5.90); RDW 16.2 % (11.5-15.5); WBC 27.3 k/uL (3.8-10.6)
[2024-04-01 13:38] LABS: INR 1.1 (<1.2); Partial Thromboplastin Time 23.6 sec (22.0-30.0); Prothrombin Time 11.6 sec (10.0-12.5)
[2024-04-01 13:41] LABS: ALT 16 U/L (4-49); AST 29 U/L (17-59); African American GFR (CKD) 89 (>60 ml/min/1.73 sqM); Alkaline Phosphatase 69 U/L (38-126); Anion Gap 5 mmol/L; Blood Urea Nitrogen 17 mg/dL (9-20); Calcium 8.9 mg/dL (8.4-10.2); Carbon Dioxide 28 mmol/L (22-30); Chloride 104 mmol/L (98-107); Glucose 105 mg/dL (74-99); Non-African American GFR(CKD) 77 (>60 ml/min/1.73 sqM); Potassium 4.7 mmol/L (3.5-5.1); Sodium 137 mmol/L (137-145); Total Bilirubin 0.6 mg/dL (0.2-1.3); Total Protein 5.7 g/dL (6.3-8.2)
[2024-04-01 14:08] LABS: Lymphocytes # (M) 22.93 k/uL (1.0-4.8); Monocytes # (M) 0.55 k/uL (0-1.0); Neutrophils # (M) 3.82 k/uL (1.3-7.7); Neutrophils % (M) 14 %; Nucleated Red Blood Cells 0 /100 WBC (0-0); Total Cells Counted 100
[2024-04-01] MEDS: PANTOPRAZOLE 40 MG/10 ML VIAL IVP STA (15:22)
[2024-04-01 15:27] VITALS: BP 130/68; PULSE 59; RESP 16; TEMP 98.4
== END 2024-04-01 15:30 | disposition home or self-care (01) ==
LOC: EC 12:27
DX: K92.1 Melena (principal); Z79.01 Long term (current) use of anticoagulants
CPT/HCPCS: 36415; 93005; 86900; 86901; 80053; 85025; 85610; 85730; 86850; 82272; 99285; 96374; J2470

== ENCOUNTER 2024-04-02 14:14 | Observation (INO) | payer MEDICARE ==
[2024-04-02] MEDS ORDERED: NALOXONE 0.4 MG/ML 1 ML VIAL IV PRN (14:15)
--- NOTE | 2024-04-02 15:05 | ED ---
General Adult HPI - General Chief complaint: GI Bleed Stated complaint: blood in stool Time Seen by Provider: 04/02/24 14:15 Source: patient, RN notes reviewed, old records reviewed Mode of arrival: ambulatory Limitations: no limitations - History of Present Illness Initial comments: 88-year-old male presenting for evaluation of anemia and suspected GI bleed. Patient was sent in by his primary care provider Dr. Acosta for admission. Patient was noted to have melanotic stool on recent ER evaluation. At that time the patient did not want to be transferred for GI evaluation. Patient stated that he wanted to be discharged. He saw his primary care provider who recommended admission and the patient was sent to the emergency department. Patient denies chest pain or dyspnea. He reports mild fatigue. He takes Eliquis with history of atrial fibrillation but has not taken this in the past almost 48 hours. - Related Data Home Medications Medication Instructions Recorded Confirmed Omeprazole 20 mg PO DAILY 03/24/15 12/13/22 Propylene Glycol/Peg 400/Pf 1 drop BOTH EYES BID PRN 01/03/17 12/13/22 [Systane 0.3-0.4% Eye Drop] Bimatoprost [Lumigan 0.01% Ophth 1 drop BOTH EYES HS 12/13/22 12/13/22 Soln] Cholecalciferol (Vitamin D3) 1,250 mcg PO Q30D 12/13/22 12/13/22 [Vitamin D3 (1250 Mcg = 50,000 Iu)] Ketotifen 0.025% Ophth Soln 1 drop BOTH EYES BID PRN 12/13/22 12/13/22 [Zaditor] Meclizine [Antivert] 6.25 mg PO QID PRN 12/13/22 12/13/22 Previous Rx's Medication Instructions Recorded Apixaban [Eliquis] 2.5 mg PO BID 30 Days #60 tab 12/16/22 Atorvastatin [Lipitor] 20 mg PO HS 30 Days #30 tablet 12/16/22 Pantoprazole [Protonix] 40 mg PO DAILY 14 Days #14 tab 04/01/24 Allergies Allergy/AdvReac Type Severity Reaction Status Date / Time No Known Allergies Allergy Verified 04/01/24 12:37 Review of Systems ROS Statement: Those systems with pertinent positive or pertinent negative responses have been documented in the HPI. ROS Other: All systems not noted in ROS Statement are negative. Past Medical History Past Medical History: Atrial Fibrillation, Cancer, Eye Disorder, GERD/Reflux Additional Past Medical History / Comment(s): CLL, iron deficiency anemia - receives iron infusions, gastric ulcer, bilateral glaucoma, BPH with surgery, sinus issues, gait imbalance at times - uses no assistive device History of Any Multi-Drug Resistant Organisms: None Reported Past Surgical History: Cholecystectomy, Hernia Repair, Prostate Surgery Additional Past Surgical History / Comment(s): EGDs/colonoscopies, hemigastrectomy d/t ulcer, TURP, inguinal hernia surgery-laterallity unknown, bilateral cornea transplant/cataracts removed, L knee arthroscopy, Past Anesthesia/Blood Transfusion Reactions: Postoperative Nausea & Vomiting (PONV) Additional Past Anesthesia/Blood Transfusion Reaction / Comment(s): Pt states he has endured some nausea/vomiting after anesthesia. Past Psychological History: No Psychological Hx Reported Smoking Status: Never smoker Past Alcohol Use History: None Reported Past Drug Use History: None Reported - Past Family History Father History Unknown: Yes Family Medical History: Respiratory Disorder Additional Family Medical History / Comment(s): Father had "lung problems from smoking." Mother History Unknown: Yes Family Medical History: Dementia General Exam Limitations: no limitations General appearance: alert, in no apparent distress Head exam: Present: atraumatic, normocephalic Eye exam: Present: normal appearance, PERRL Neck exam: Present: normal inspection. Absent: tenderness, meningismus Respiratory exam: Present: normal lung sounds bilaterally. Absent: respiratory distress, wheezes Cardiovascular Exam: Present: bradycardia, irregular rhythm GI/Abdominal exam: Present: soft. Absent: distended, tenderness, guarding Neurological exam: Present: alert, oriented X3, CN II-XII intact. Absent: motor sensory deficit Psychiatric exam: Present: normal affect, normal mood Skin exam: Present: warm, dry, intact, normal color Course Vital Signs 04/02/24 14:34 Temperature 97.5 F L Pulse Rate 45 L Respiratory 18 Rate Blood Pressure 112/47 O2 Sat by Pulse 94 L Oximetry Medical Decision Making - Medical Decision Making Was pt. sent in by a medical professional or institution (, PA, FOLDER MACHINE, urgent care, hospital, or [facility]...) When possible be specific @ -No Did you speak to anyone other than the patient for history (EMS, parent, family, police, friend...)? What history was obtained from this source @ -No Did you review nursing and triage notes (agree or disagree)? Why? @ -I reviewed and agree with nursing and triage notes Were old charts reviewed (outside hosp., previous admission, EMS record, old EKG, old radiological studies, urgent care reports/EKG's, [facility] records)? Report findings @ -No old charts were reviewed Differential GI Bleed: Esophageal varices, aortoenteric fistula, Hollie-Manule, gastritis, peptic ulcer disease, diverticulosis, inflammatory bowel disease, hemorrhoids, fissure, colitis, malignancy, Meckel's diverticulum, this is not meant to be an all- inclusive list. EKG interpreted by me (3pts min.). @ -Atrial fibrillation with slow ventricular response rate of 46, QRS duration 81, QTc [address] segment elevation. X-rays interpreted by me (1pt min.). @ -None done CT interpreted by me (1pt min.). @ -None done U/S interpreted by me (1pt. min.). @ -None done What testing was considered but not performed or refused? (CT, X-rays, U/S, labs)? Why? @ -None What meds were considered but not given or refused? Why? @ -None Did you discuss the management of the patient with other professionals (professionals i.e. , PA, FOLDER MACHINE, lab, RT, psych nurse, social services analyst, radiation therapist, te acher, procurement officer, telehealth case manager)? Give summary @ -No Was smoking cessation discussed for >3mins.? @ -No Was critical care preformed (if so, how long)? @ -No Were there social determinants of health that impacted care today? How? (Homelessness, low income, unemployed, alcoholism, drug addiction, transportation, low edu. Level, literacy, decrease access to med. care, intermediate, rehab)? @ -No Was there de-escalation of care discussed even if they declined (Discuss DNR or withdrawal of care, Hospice)? DNR status @ -No What co-morbidities impacted this encounter? (DM, HTN, Smoking, COPD, CAD, C ancer, CVA, ARF, Chemo, Hep., AIDS, mental health diagnosis, sleep apnea, morbid obesity)? @ -Atrial fibrillation with melanotic stool. Was patient admitted / discharged? Hospital course, mention meds given and route, prescriptions, significant lab abnormalities, going to OR and other pertinent info. @88-year-old male on Eliquis with melanotic stool sent in by primary care for admission. Dr. Acosta aware of patient and is requesting admission. Patient's hemoglobin is stable and improved from prior. Hemodynamics are stable. Patient without specific complaint at this time. CBC will be ordered for reevaluation of blood counts. Eliquis will be held. Patient is started on Protonix. Undiagnosed new problem with uncertain prognosis? @ -No Drug Therapy requiring intensive monitoring for toxicity (Heparin, Nitro, Insulin, Cardizem)? @ -No Were any procedures done? @ -No Diagnosis/symptom? @ -Anemia, suspected GI bleed Acute, or Chronic, or Acute on Chronic? @ -[Acute Uncomplicated (without systemic symptoms) or Complicated (systemic symptoms)? @ -Default Side effects of treatment? @ -No Exacerbation, Progression, or Severe Exacerbation? @ -No Poses a threat to life or bodily function? How? (Chest pain, USA, IA, pneumonia, PE, COPD, DKA, ARF, appy, cholecystitis, CVA, Diverticulitis, Homicidal, Suicidal, threat to staff... and all critical care pts) @ -Moderate risk, GI bleed - Lab Data Result diagrams: 04/02/24 15:04 Lab Results 04/02/24 Range/Units 15:04 WBC 23.8 H (3.8-10.6) k/uL RBC 4.10 L (4.30-5.90) m/uL Hgb 12.9 L (13.0-17.5) gm/dL Hct 39.9 (39.0-53.0) % MCV 97.3 (80.0-100.0) fL MCH 31.4 (25.0-35.0) pg MCHC 32.2 (31.0-37.0) g/dL RDW 16.2 H (11.5-15.5) % Plt Count 134 L (150-450) k/uL MPV 7.2 Hypochromasia Slight Anisocytosis Slight Disposition Clinical Impression: Anemia, GI bleed Disposition: ADMITTED IP TO THIS HOSP Condition: Stable Is patient prescribed a controlled substance at d/c from ED?: No Referrals: Sahil Acosta MD [Primary Care Provider] - 1-2 days Time of Disposition: 15:35
[2024-04-02 15:15] LABS: Anisocytosis Slight; Basophils # (A) 0.1 k/uL (0-0.2); Basophils % (A) 1 %; Eosinophils % (A) 0 %; HCT 39.9 % (39.0-53.0); HGB 12.9 gm/dL (13.0-17.5); Hypochromasia Slight; Lymphocytes % (A) 83 %; MCH 31.4 pg (25.0-35.0); MCHC 32.2 g/dL (31.0-37.0); MCV 97.3 fL (80.0-100.0); Mean Platelet Volume 7.2; Monocytes # (A) 0.3 k/uL (0-1.0); Monocytes % (A) 1 %; Neutrophils # (A) 2.7 k/uL (1.3-7.7); Neutrophils % (A) 11 %; Platelet Count 134 k/uL (150-450); RDW 16.2 % (11.5-15.5); WBC 23.8 k/uL (3.8-10.6)
[2024-04-02 15:29] LABS: Lymphocytes # (A) 19.8 k/uL (1.0-4.8)
[2024-04-02 15:34] LABS: ALT 18 U/L (4-49); African American GFR (CKD) 89 (>60 ml/min/1.73 sqM); Anion Gap 3 mmol/L; Blood Urea Nitrogen 19 mg/dL (9-20); Calcium 9.2 mg/dL (8.4-10.2); Carbon Dioxide 29 mmol/L (22-30); Chloride 105 mmol/L (98-107); Glucose 101 mg/dL (74-99); Non-African American GFR(CKD) 77 (>60 ml/min/1.73 sqM); Sodium 137 mmol/L (137-145); Total Bilirubin 0.6 mg/dL (0.2-1.3); Total Protein 5.9 g/dL (6.3-8.2)
[2024-04-02 15:40] LABS: AST 32 U/L (17-59); Alkaline Phosphatase 63 U/L (38-126); Magnesium 2.3 mg/dL (1.6-2.3); Potassium 4.9 mmol/L (3.5-5.1)
[2024-04-02 15:43] LABS: INR 1.1 (<1.2); Partial Thromboplastin Time 24.3 sec (22.0-30.0); Prothrombin Time 12.3 sec (10.0-12.5)
[2024-04-02] MEDS: PANTOPRAZOLE 40 MG/10 ML VIAL IVP SCH (21:48)
[2024-04-03 02:40] LABS: Anisocytosis Slight; Basophils # (A) 0.1 k/uL (0-0.2); Basophils % (A) 1 %; Eosinophils # (A) 0.1 k/uL (0-0.7); Eosinophils % (A) 0 %; HCT 32.8 % (39.0-53.0); HGB 10.4 gm/dL (13.0-17.5); Hypochromasia Moderate; Lymphocytes % (A) 83 %; MCH 31.2 pg (25.0-35.0); MCHC 31.7 g/dL (31.0-37.0); MCV 98.3 fL (80.0-100.0); Macrocytosis Slight; Mean Platelet Volume 7.8; Monocytes # (A) 0.3 k/uL (0-1.0); Monocytes % (A) 1 %; Neutrophils # (A) 2.5 k/uL (1.3-7.7); Neutrophils % (A) 11 %; Platelet Count 115 k/uL (150-450); RBC 3.34 m/uL (4.30-5.90); RDW 16.2 % (11.5-15.5)
[2024-04-03 02:55] LABS: Lymphocytes # (A) 18.3 k/uL (1.0-4.8)
[2024-04-03 04:27] VITALS: TEMP 97.6
[2024-04-03 07:07] VITALS: BP 127/61; PULSE 45; RESP 17
[2024-04-03] MEDS ORDERED: KETOTIFEN 0.025% OPHTH DROPS 5 ML BTL BOTH EYES PRN (09:17)
[2024-04-03] MEDS ORDERED: ARTIFICIAL TEARS-HYPROMELLOSE DROPS 15 ML BTL BOTH EYES PRN (09:17)
--- NOTE | 2024-04-03 09:56 | XR ---
EXAMINATION TYPE: XR chest 1V portable DATE OF EXAM: 04/03/2024 9:34 AM COMPARISON: 12/13/2022 CLINICAL INDICATION: Male, 88 years old with history of SOB, , FINDINGS: Heart mildly enlarged. Hyperinflation. Patient is rotated towards the left ultrasound and normal card iothymic contours. There is some focal opacity at the periphery of the left midlung which may be part related to rotation. No other consolidation or pleural effusion. Surgical clips GE junction. IMPRESSION: 1. Mild cardiomegaly and COPD. 2. Some focal opacity at the periphery of the left midlung may in part relate to rotation. Unable to exclude a developing pneumonia here. [facility], , 04/03/2024 9:54 AM
--- NOTE | 2024-04-03 14:16 | P.CONS ---
History of Present Illness - Reason for Consult Consult date: 04/03/24 CLL, Iron deficiency - Chief Complaint Dark stool - History of Present Illness Mr. Gomez is a pleasant 88-year-old gentleman with a past medical history significant for CLL diagnosed in October 2016 on observation along with iron deficiency requiring IV iron infusions who was initially admitted for concern of GI bleed. He noted having 2-3 episodes of dark looser stool without any hematochezia or bright red blood per rectum. He reports having had fecal occult blood testing done that was positive. Based on these findings, he was advised to present to the hospital for additional management. On presentation, he was hemodynamically stable and afebrile. Labs on admission revealed overall stable cell counts with WBC 23.8 (absolute lymphocyte count 19.8), hemoglobin 12.9 (MCV 97.3), platelets 134. CMP revealed no acute metabolic abnormalities with creatinine 0.88 and BUN 19. Coagulation studies were normal. He was started on IV pantoprazole twice daily and admitted for additional management. General surgery has been consulted with formal recommendations pending. Clinically, he is sitting up in a chair and eating for lunch without any limitations. He denies any dizziness, lightheadedness, chest pain, palpitations, dyspnea, or unexplained fatigue. Outpatient labs on 03/21/2024 w ere consistent with iron deficiency and received his first treatment of Feraheme on 03/27/2024 with his second treatment originally scheduled for 04/02/2024, but missed this due to presenting to the hospital. Review of Systems 14 point review of systems was conducted with pertinent positives and negatives as noted per HPI Past Medical History Past Medical History: Atrial Fibrillation, Cancer, Eye Disorder, GERD/Reflux Additional Past Medical History / Comment(s): CLL, iron deficiency anemia - receives iron infusions, gastric ulcer, bilateral glaucoma, BPH with surgery, sinus issues, gait imbalance at times - uses no assistive device History of Any Multi-Drug Resistant Organisms: None Reported Past Surgical History: Cholecystectomy, Hernia Repair, Prostate Surgery Additional Past Surgical History / Comment(s): EGDs/colonoscopies, hemigastrectomy d/t ulcer, TURP, inguinal hernia surgery-laterallity unknown, bilateral cornea transplant/cataracts removed, L knee arthroscopy, Past Anesthesia/Blood Transfusion Reactions: Postoperative Nausea & Vomiting (PONV) Additional Past Anesthesia/Blood Transfusion Reaction / Comm: Pt states he has endured some nausea/vomiting after anesthesia. Past Psychological History: No Psychological Hx Reported Additional Psychological History / Comment(s): Pt resides with his spouse. He uses no assistive device. He drives. Smoking Status: Never smoker Past Alcohol Use History: None Reported Additional Past Alcohol Use History / Comment(s): Pt smoked for a short period of time, [id number]. Past Drug Use History: None Reported - Past Family History Father History Unknown: Yes Family Medical History: Respiratory Disorder Additional Family Medical History / Comment(s): Father had "lung problems from smoking." Mother History Unknown: Yes Family Medical History: Dementia Medications and Allergies Home Medications Medication Instructions Recorded Confirmed Type Omeprazole 20 mg PO DAILY 03/24/15 04/02/24 History Propylene Glycol/Peg 400/Pf 1 drop BOTH EYES BID PRN 01/03/17 04/02/24 History [Systane 0.3-0.4% Eye Drop] Bimatoprost [Lumigan 0.01% Ophth 1 drop BOTH EYES HS 12/13/22 04/02/24 History Soln] Ketotifen 0.025% Ophth Soln 1 drop BOTH EYES BID PRN 12/13/22 04/02/24 History [Zaditor] Ergocalciferol [Vitamin D2 (1250 1,250 mcg PO QMONTHLY 04/02/24 04/02/24 History Mcg = 79793 Iu)] Allergies Allergy/AdvReac Type Severity Reaction Status Date / Time No Known Allergies Allergy Verified 04/02/24 17:35 Physical Exam Vitals: Vital Signs Temp Pulse Pulse Resp BP BP Pulse Ox 04/03/24 08:00 45 L 17 04/03/24 06:55 97.6 F 45 L 17 127/61 99 04/03/24 04:17 97.6 F 53 L 16 154/75 99 04/03/24 03:41 48 L 18 136/60 96 04/03/24 02:01 41 L 18 120/60 99 04/02/24 18:06 98 F 56 L 18 142/70 96 04/02/24 14:34 97.5 F L 45 L 18 112/47 94 L Intake and Output 04/02/24 04/03/24 04/03/24 22:59 06:59 14:59 Other: # Voids 1 Weight 59.874 kg - Constitutional General appearance: cooperative, no acute distress - EENT Pale mucous membranes Eyes: EOMI - Respiratory Respiratory: bilateral: CTA - Cardiovascular Rhythm: regular - Gastrointestinal General gastrointestinal: no distended, soft, no tenderness - Integumentary Integumentary: pale - Neurologic Neurologic: CNII-XII intact - Psychiatric Psychiatric: A&O x's 3, appropriate affect Results CBC & Chem 7: 04/03/24 01:55 04/02/24 15:05 Labs: Abnormal Lab Results - Last 24 Hours (Table) 04/02/24 04/02/24 04/03/24 Range/Units 15:04 15:05 01:55 WBC 23.8 H 22.0 H (3.8-10.6) k/uL RBC 4.10 L 3.34 L (4.30-5.90) m/uL Hgb 12.9 L 10.4 L (13.0-17.5) gm/dL Hct 32.8 L (39.0-53.0) % RDW 16.2 H 16.2 H (11.5-15.5) % Plt Count 134 L 115 L (150-450) k/uL Lymphocytes # 19.8 H 18.3 H (1.0-4.8) k/uL Glucose 101 H (74-99) mg/dL Total Protein 5.9 L (6.3-8.2) g/dL Assessment and Plan (1) Iron deficiency anemia Current Visit: Yes Status: Acute Code(s): D50.9 - IRON DEFICIENCY ANEMIA, UNSPECIFIED SNOMED Code(s): 01103530 (2) Acute blood loss anemia Current Visit: No Status: Acute Code(s): D62 - ACUTE POSTHEMORRHAGIC ANEMIA SNOMED Code(s): 446763829 (3) CLL (chronic lymphocytic leukemia) Current Visit: No Status: Chronic Priority: Medium Code(s): C91.10 - CHRONIC LYMPHOCYTIC LEUK OF B-CELL TYPE NOT ACHIEVE REMIS SNOMED Code(s): 22258528 Plan: #Iron deficiency anemia -Most recent iron studies on 03/21/2024 outpatient were consistent with iron deficiency and received his first Feraheme infusion on 03/27/2024 -He had 2-3 episodes of looser stool that were darker without any tammie blood or hematochezia -His vital signs were stable with no acute findings on labs including stable hemoglobin and no elevated BUN/creatinine ratio -Per nursing staff and patient, EGD/colonoscopy was recommended outpatient -From a hematology perspective, I believe this is reasonable -For now, he can hold Eliquis he was previously taking for atrial fibrillation until he has colonoscopy/EGD -We will reschedule his second Feraheme infusion that was originally scheduled for 04/02/2024 #CLL -On observation with stable lymphocytosis -Clinic appointment follow-up scheduled for 05/09/2024 Rudy Carpenter MD
--- NOTE | 2024-04-03 14:37 | P.GSCN ---
History of Present Illness Consult date: 04/03/24 Reason for Consult: Melena History of present illness: Patient is a 88-year-old gentleman with a past medical history of CLL who presents with melena. Per patient he has had a 2 to 3-day episode of black tarry stools. He denies any hematochezia. He denies any abdominal pain nausea or vomiting. He states that he was advised to present to the hospital as he had fecal occult blood testing done at his primary care physician's office which was positive. He states that he had a similar episode such as this in the past year where he was admitted for observation. He denies any surgical intervention for his melena. He denies any dizziness, lightheadedness or chest pain. No shortness of breath. No fevers or chills. Tolerating diet without issue. Urinating without issue. He cannot recall if he has ever had a upper or lower endoscopy in the past. Review of Systems Negative Except for as stated above Past Medical History Past Medical History: Atrial Fibrillation, Cancer, Eye Disorder, GERD/Reflux Additional Past Medical History / Comment(s): CLL, iron deficiency anemia - receives iron infusions, gastric ulcer, bilateral glaucoma, BPH with surgery, sinus issues, gait imbalance at times - uses no assistive device History of Any Multi-Drug Resistant Organisms: None Reported Past Surgical History: Cholecystectomy, Hernia Repair, Prostate Surgery Additional Past Surgical History / Comment(s): EGDs/colonoscopies, hemigastrectomy d/t ulcer, TURP, inguinal hernia surgery-laterallity unknown, bilateral cornea transplant/cataracts removed, L knee arthroscopy, Past Anesthesia/Blood Transfusion Reactions: Postoperative Nausea & Vomiting (PONV) Additional Past Anesthesia/Blood Transfusion Reaction / Comm: Pt states he has endured some nausea/vomiting after anesthesia. Past Psychological History: No Psychological Hx Reported Additional Psychological History / Comment(s): Pt resides with his spouse. He uses no assistive device. He drives. Smoking Status: Never smoker Past Alcohol Use History: None Reported Additional Past Alcohol Use History / Comment(s): Pt smoked for a short period of time, [id number]. Past Drug Use History: None Reported - Past Family History Father History Unknown: Yes Family Medical History: Respiratory Disorder Additional Family Medical History / Comment(s): Father had "lung problems from smoking." Mother History Unknown: Yes Family Medical History: Dementia Medications and Allergies Home Medications Medication Instructions Recorded Confirmed Type Omeprazole 20 mg PO DAILY 03/24/15 04/02/24 History Propylene Glycol/Peg 400/Pf 1 drop BOTH EYES BID PRN 01/03/17 04/02/24 History [Systane 0.3-0.4% Eye Drop] Bimatoprost [Lumigan 0.01% Ophth 1 drop BOTH EYES HS 12/13/22 04/02/24 History Soln] Ketotifen 0.025% Ophth Soln 1 drop BOTH EYES BID PRN 12/13/22 04/02/24 History [Zaditor] Ergocalciferol [Vitamin D2 (1250 1,250 mcg PO QMONTHLY 04/02/24 04/02/24 History Mcg = 83929 Iu)] Allergies Allergy/AdvReac Type Severity Reaction Status Date / Time No Known Allergies Allergy Verified 04/02/24 17:35 Surgical - Exam Vital Signs Temp Pulse Resp BP Pulse Ox 97.5 F L 45 L 18 112/47 94 L 04/02/24 14:34 04/02/24 14:34 04/02/24 14:34 04/02/24 14:34 04/02/24 14:34 Gen: AxO, NAD Pulm: non-labored respirations Abd: soft, non-tender, non-distended no guarding/rebound/rigidity Extrem: no edema seen Results - Labs 04/03/24 01:55 04/02/24 15:05 Abnormal Lab Results - Last 24 Hours (Table) 04/02/24 04/02/24 04/03/24 Range/Units 15:04 15:05 01:55 WBC 23.8 H 22.0 H (3.8-10.6) k/uL RBC 4.10 L 3.34 L (4.30-5.90) m/uL Hgb 12.9 L 10.4 L (13.0-17.5) gm/dL Hct 32.8 L (39.0-53.0) % RDW 16.2 H 16.2 H (11.5-15.5) % Plt Count 134 L 115 L (150-450) k/uL Lymphocytes # 19.8 H 18.3 H (1.0-4.8) k/uL Glucose 101 H (74-99) mg/dL Total Protein 5.9 L (6.3-8.2) g/dL Diabetes panel 04/02/24 Range/Units 15:05 Sodium 137 (137-145) mmol/L Potassium 4.9 (3.5-5.1) mmol/L Chloride 105 (98-107) mmol/L Carbon Dioxide 29 (22-30) mmol/L BUN 19 (9-20) mg/dL Creatinine 0.88 (0.66-1.25) mg/dL Glucose 101 H (74-99) mg/dL Calcium 9.2 (8.4-10.2) mg/dL AST 32 (17-59) U/L ALT 18 (4-49) U/L Alkaline Phosphatase 63 (38-126) U/L Total Protein 5.9 L (6.3-8.2) g/dL Albumin 4.0 (3.5-5.0) g/dL Calcium panel 04/02/24 Range/Units 15:05 Calcium 9.2 (8.4-10.2) mg/dL Albumin 4.0 (3.5-5.0) g/dL Pituitary panel 04/02/24 Range/Units 15:05 Sodium 137 (137-145) mmol/L Potassium 4.9 (3.5-5.1) mmol/L Chloride 105 (98-107) mmol/L Carbon Dioxide 29 (22-30) mmol/L BUN 19 (9-20) mg/dL Creatinine 0.88 (0.66-1.25) mg/dL Glucose 101 H (74-99) mg/dL Calcium 9.2 (8.4-10.2) mg/dL Adrenal panel 04/02/24 Range/Units 15:05 Sodium 137 (137-145) mmol/L Potassium 4.9 (3.5-5.1) mmol/L Chloride 105 (98-107) mmol/L Carbon Dioxide 29 (22-30) mmol/L BUN 19 (9-20) mg/dL Creatinine 0.88 (0.66-1.25) mg/dL Glucose 101 H (74-99) mg/dL Calcium 9.2 (8.4-10.2) mg/dL Total Bilirubin 0.6 (0.2-1.3) mg/dL AST 32 (17-59) U/L ALT 18 (4-49) U/L Alkaline Phosphatase 63 (38-126) U/L Total Protein 5.9 L (6.3-8.2) g/dL Albumin 4.0 (3.5-5.0) g/dL Assessment and Plan Assessment: Patient is a 88-year-old male with a past medical history of CLL who presents with a 34-day history of melena. Plan: -CLD as tolerated -Trend Hb -IV PPI therapy -Recommend carafate therapy -Activity as tolerated -PRN pain and nausea control -No acute surgical intervention; Hb currently stable. Will continue to follow a nd consider endoscopic evaluation if continued drop in Hb Aquiles Azar M.D. General Surgery
--- NOTE | 2024-04-03 20:19 | DS ---
DISCHARGE SUMMARY CHIEF COMPLAINT: Upper GI bleed and blood-loss anemia. HISTORY OF PRESENT ILLNESS AND PHYSICAL EXAMINATION: Details of this man's history and physical can be found in the initial workup. LABORATORY STUDIES: While he was in the hospital, he had laboratory studies, details of which can be found in the laboratory section of his chart. COURSE IN THE HOSPITAL: After admission, he was placed on bedrest and IV started. He is seen in consultation by Surgery, who suggests that he could be discharged to outpatient followup and undergo endoscopy later in the week given that it was Kennedi Godoy. He was seen by Oncology who concurred. He was stable and was felt that he could go home on the , and he will follow up in the office in several days. We will repeat his hemoglobin then and follow with on a serial basis. FINAL DIAGNOSES: 1. Upper gastrointestinal bleed. 2. Melena. 3. Blood loss anemia. 4. Atrial fibrillation. 5. Chronic lymphocytic leukemia. OPERATIONS: None. CONSULTATIONS: Surgery and Oncology. MMODL / MARCEN: [id number] /
[2024-04-03] MEDS ORDERED: LATANOPROST 0.005% OPHTH DROPS 2.5 ML BTL BOTH EYES SCH (21:00)
--- NOTE | 2024-04-04 00:55 | HP ---
HISTORY AND PHYSICAL CHIEF COMPLAINT: Melena. HISTORY OF PRESENT ILLNESS: This is another admission for this 88-year-old white male. He has been fairly healthy and well preserved. 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 He has noticed some melena of late. He has not been lightheaded or had any nausea, vomiting, or hematemesis. He came to the emergency room the night before admission to be evaluated. They told him that his stool was negative for blood and he said that he would not be admitted because there was no "GI service available." They told him that he could go to [facility]. He apparently called there and there were no beds available. He came to the office where he was pale and he did have a positive fecal occult blood. Considering this, his age, and the fact that he has been on Eliquis for atrial fibrillation, he was admitted. He denies abdominal pain. Review of systems, past medical history, family history, and personal and social histories are all otherwise unremarkable and unchanged from his previous admissions. PHYSICAL EXAM: VITAL SIGNS: Blood pressure 120/80 with a pulse 68, respirations 16. He is afebrile. GENERAL: He appeared to be slender and pale. HEAD, EARS, EYES, NOSE, MOUTH AND THROAT: Normal. Neck veins are not distended. CHEST: Clear. CARDIAC: Demonstrated atrial fibrillation. ABDOMEN: Soft and nontender and flat. There are no masses or visceromegaly. EXTREMITIES: Normal. 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 NEUROLOGICAL: He is intact. He was admitted to the hospital. DIAGNOSES: 1. Upper GI bleed. 2. Chronic lymphocytic leukemia. 3. Atrial fibrillation. PLAN: 1. Bed rest. 2. IV fluids. 3. Serial hemoglobins. 4. Hold Eliquis. 5. Consult General Surgery and Oncology. MMODL / IJN: [id number] /
[2024-04-04] MEDS ORDERED: NON FORMULARY DRUG (Omeprazole [Omeprazole] 20 MG Capsule.Dr) PO SCH (09:00)
== END 2024-04-03 15:00 | disposition home or self-care (01) ==
LOC: EC 14:14 → 6NMEDSUR 15:36
PROVIDERS: ADMIT Family Medicine; ATTEND Family Medicine
DX: K92.2 Gastrointestinal hemorrhage, unspecified (principal); K92.1 Melena; D62 Acute posthemorrhagic anemia; I48.91 Unspecified atrial fibrillation; C91.10 Chronic lymphocytic leukemia of B-cell type not having achieved remission; N40.0 Benign prostatic hyperplasia without lower urinary tract symptoms; K21.9 Gastro-esophageal reflux disease without esophagitis; H40.9 Unspecified glaucoma; Z79.01 Long term (current) use of anticoagulants; Z79.899 Other long term (current) drug therapy
CPT/HCPCS: 96376; 96374; 99285; 36415; 93005; 80053; 83735; 85025 ×2; 85610; 85730; 71045; G0378 ×2; J2470 ×2

== ENCOUNTER 2024-09-23 21:52 | Observation (INO) | payer MEDICARE ==
--- NOTE | 2024-09-23 22:13 | ED ---
Lower Extremity Injury HPI - General Chief Complaint: Extremity Injury, Lower Stated Complaint: L Foot Swelling Time Seen by Provider: 09/23/24 22:06 Source: EMS, RN notes reviewed, old records reviewed Mode of arrival: EMS Limitations: physical limitation - History of Present Illness Initial Comments: This is a 89-year-old male to the ER for evaluation this patient presents today for evaluation of severe foot pain severe left foot pain with recent left hip surgery. Left hip fracture with surgery, has since had severe pain in that left foot was ambulatory yesterday on the left foot but significant swelling bruising to the left foot noted today with severe pain MD Complaint: leg injury, ankle injury, foot injury -: days(s) Injury: Ankle: Left, Foot: Left, Toes: Left Place: home Severity: severe Severity scale (1-10): 8 Worsens With: nothing Context: fall Associated Symptoms: swelling Treatments Prior to Arrival: cold therapy - Related Data Home Medications Medication Instructions Recorded Confirmed Omeprazole 20 mg PO DAILY 03/24/15 08/30/24 Bimatoprost [Lumigan 0.01% Ophth 1 drop BOTH EYES HS 12/13/22 08/30/24 Soln] Ergocalciferol [Vitamin D2 (1250 1,250 mcg PO QMONTHLY 04/02/24 08/30/24 Mcg = 25999 Iu)] Previous Rx's Medication Instructions Recorded Aspirin 81 mg PO BID #60 tab 09/01/24 Docusate [Colace] 100 mg PO BID #60 capsule 09/01/24 HYDROcodone/APAP 5-325MG [[place] 1 - 2 tab PO Q6HR PRN #18 tab 09/01/24 5-325] Acetaminophen Tab [Tylenol] 650 mg PO Q6HR PRN #120 tab 09/06/24 Ketotifen 0.025% Ophth Soln 1 drops BOTH EYES BID ml 09/06/24 [Zaditor] Latanoprost Ophth [Xalatan 0.005%] 1 drops BOTH EYES HS ml 09/06/24 Tamsulosin [Flomax] 0.4 mg PO PC-BRKFST cap 09/06/24 Allergies Allergy/AdvReac Type Severity Reaction Status Date / Time No Known Allergies Allergy Verified 09/23/24 22:05 Review of Systems ROS Statement: Those systems with pertinent positive or pertinent negative responses have been documented in the HPI. ROS Other: All systems not noted in ROS Statement are negative. Past Medical History Past Medical History: Atrial Fibrillation, Cancer, Eye Disorder, GERD/Reflux Additional Past Medical History / Comment(s): CLL, iron deficiency anemia - receives iron infusions, gastric ulcer, bilateral glaucoma, BPH with surgery, sinus issues, gait imbalance at times - uses no assistive device History of Any Multi-Drug Resistant Organisms: None Reported Past Surgical History: Cholecystectomy, Hernia Repair, Prostate Surgery Additional Past Surgical History / Comment(s): EGDs/colonoscopies, hemigastrectomy d/t ulcer, TURP, inguinal hernia surgery-laterallity unknown, bilateral cornea transplant/cataracts removed, L knee arthroscopy, Past Anesthesia/Blood Transfusion Reactions: Postoperative Nausea & Vomiting (PONV) Additional Past Anesthesia/Blood Transfusion Reaction / Comment(s): Pt states he has endured some nausea/vomiting after anesthesia. Past Psychological History: No Psychological Hx Reported Smoking Status: Never smoker Past Alcohol Use History: None Reported Past Drug Use History: None Reported - Past Family History Father History Unknown: Yes Family Medical History: Respiratory Disorder Additional Family Medical History / Comment(s): Father had "lung problems from smoking." Mother History Unknown: Yes Family Medical History: Dementia General Exam Limitations: physical limitation General appearance: alert, in no apparent distress Head exam: Present: atraumatic, normocephalic, normal inspection Eye exam: Present: normal appearance, PERRL, EOMI. Absent: scleral icterus, conjunctival injection, periorbital swelling ENT exam: Present: normal exam, mucous membranes moist Neck exam: Present: normal inspection. Absent: tenderness, meningismus, lymphadenopathy Respiratory exam: Present: normal lung sounds bilaterally. Absent: respiratory distress, wheezes, rales, rhonchi, stridor Cardiovascular Exam: Present: regular rate, normal rhythm, normal heart sounds. Absent: systolic murmur, diastolic murmur, rubs, gallop, clicks GI/Abdominal exam: Present: soft, normal bowel sounds. Absent: distended, tenderness, guarding, rebound, rigid Extremities exam: Present: normal inspection, full ROM, normal capillary refill. Absent: tenderness, pedal edema, joint swelling, calf tenderness Back exam: Present: normal inspection Neurological exam: Present: alert, oriented X3, CN II-XII intact Psychiatric exam: Present: normal affect, normal mood Skin exam: Present: warm, dry, intact, normal color. Absent: rash Course Vital Signs 09/23/24 21:56 Temperature 98 F Pulse Rate 48 L Respiratory 18 Rate Blood Pressure 118/66 O2 Sat by Pulse 100 Oximetry - Reevaluation(s) Reevaluation #1: 09/23/24 23:18 Medical records reviewed Reevaluation #2: 09/24/24 00:03 Patient's pain is controlled Reevaluation #3: 09/24/24 00:03 Family informed of results questions answered Reevaluation #4: Was pt. sent in by a medical professional or institution (, BILL, LAND AGENT, urgent care, hospital, or retirement...) When possible be specific @ -no Did you speak to anyone other than the patient for history (EMS, parent, family, police, friend...)? What history was obtained from this source @ -no Did you review nursing and triage notes (agree or disagree)? Why? @ -agree Are old charts reviewed (outside hosp., previous admission, EMS record, old EKG, old radiological studies, urgent care reports/EKG's, retirement records)? Rep ort findings @ -yes Differential Diagnosis (chest pain, altered mental status, abdominal pain women, abdominal pain men, vaginal bleeding, weakness, fever, dyspnea, syncope, headache, dizziness, GI bleed, back pain, seizure, CVA, palpatations, mental health, musculoskeletal)? @ -prior EKG interpreted by me (3pts min.). @ -yes X-rays interpreted by me (1pt min.). @ -yes negative for acute disease CT interpreted by me (1pt min.). @ -no U/S interpreted by me (1pt. min.). @ -no What testing was considered but not performed or refused? (CT, X-rays, U/S, labs)? Why? @ -none What meds were considered but not given or refused? Why? @ -none Did you discuss the management of the patient with other professionals (professionals i.e. BILL Hamm, LAND AGENT, lab, RT, psych nurse, social welfare clerk, tax compliance officer, t eacher, chief operating officer, case sealer)? Give summary @ -no Was smoking cessation discussed for >3mins.? @ -no Was critical care preformed (if so, how long)? @ -no Were there social determinants of health that impacted care today? How? (Homelessness, low income, unemployed, alcoholism, drug addiction, transportation, low edu. Level, literacy, decrease access to med. care, fpc, rehab)? @ -none Was there de-escalation of care discussed even if they declined (Discuss DNR or withdrawal of care, Hospice)? DNR status @ -no What co-morbidities impacted this encounter? (DM, HTN, Smoking, COPD, CAD, Cancer, CVA, ARF, Chemo, Hep., AIDS, mental health diagnosis, sleep apnea, morbid obesity)? @ -none Was patient admitted / discharged? Hospital course, mention meds given and route, prescriptions, significant lab abnormalities, going to OR and other pertinent info. @ - Undiagnosed new problem with uncertain prognosis? @ -no Drug Therapy requiring intensive monitoring for toxicity (Heparin, Nitro, Insulin, Cardizem)? @ -no Were any procedures done? @ -no Diagnosis/symptom? @ - Acute, or Chronic, or Acute on Chronic? @ -Acute Uncomplicated (without systemic symptoms) or Complicated (systemic symptoms)? @ -Complicated Side effects of treatment? @ -no Exacerbation, Progression, or Severe Exacerbation? @ -exacerbation Poses a threat to life or bodily function? How? (Chest pain, [place], [place], pneumonia, PE, COPD, DKA, ARF, appy, cholecystitis, CVA, Diverticulitis, Homicidal, Suicidal, threat to staff... and all critical care pts) @ -yes - Consultations Consultation #1: Dr. Acosta aware and will admit this patient Medical Decision Making - Medical Decision Making 89 male acute surgery provoked DVT of the left lower extremity patient will admit for anticoagulation and monitoring of GI bleed with history of gastric ulcer - Lab Data Result diagrams: 09/23/24 22:28 09/23/24 22:28 Lab Results 09/23/24 09/23/24 09/23/24 Range/Units 22:28 22:28 22: WBC 31.06 H (4.50-10.00) 10*3/uL RBC 3.47 L (4.40-5.60) 10*6/uL Hgb 11.0 L D (13.0-17.0) g/dL Hct 33.4 L (39.6-50.0) % MCV 96.3 (80.0-97.0) fL MCH 31.7 (27.0-32.0) pg MCHC 32.9 (32.0-37.0) g/dL Plt Count 192 D (140-440) 10*3/uL MPV 9.3 L (9.5-12.2) fL Immature Gran % (Auto) 0.2 % Immature Gran # 0.05 H (0.00-0.04) 10*3/uL PT 11.5 (10.0-12.5) sec INR 1.0 (<1.2) APTT 21.3 L (22.0-30.0) sec D-Dimer 5.14 H (<0.60) mg/L FEU Sodium 130 L (137-145) mmol/L Potassium 4.9 (3.5-5.1) mmol/L Chloride 97 L (98-107) mmol/L Carbon Dioxide 28 (22-30) mmol/L Anion Gap 5 mmol/L BUN 22 H (9-20) mg/dL Creatinine 0.70 (0.66-1.25) mg/dL Est GFR (CKD-EPI)AfAm >90 (>60 ml/min/1.73 sqM) Est GFR (CKD-EPI)NonAf 84 (>60 ml/min/1.73 sqM) Glucose 111 H (74-99) mg/dL Plasma Lactic Acid Quan (0.7-2.0) mmol/L Calcium 8.6 (8.4-10.2) mg/dL Phosphorus 3.4 (2.5-4.5) mg/dL Magnesium 2.4 H (1.6-2.3) mg/dL Total Bilirubin 0.7 (0.2-1.3) mg/dL AST 26 (17-59) U/L ALT 14 (4-49) U/L Alkaline Phosphatase 98 (38-126) U/L Troponin I (0.000-0.034) ng/mL NT-Pro-B Natriuret Pep 3210 pg/mL Total Protein 5.4 L (6.3-8.2) g/dL Albumin 3.3 L (3.5-5.0) g/dL 09/23/24 09/23/24 Range/Units 22:28 22:28 WBC (4.50-10.00) 10*3/uL RBC (4.40-5.60) 10*6/uL Hgb (13.0-17.0) g/dL Hct (39.6-50.0) % MCV (80.0-97.0) fL MCH (27.0-32.0) pg MCHC (32.0-37.0) g/dL Plt Count (140-440) 10*3/uL MPV (9.5-12.2) fL Immature Gran % (Auto) % Immature Gran # (0.00-0.04) 10*3/uL PT (10.0-12.5) sec INR (<1.2) APTT (22.0-30.0) sec D-Dimer (<0.60) mg/L FEU Sodium (137-145) mmol/L Potassium (3.5-5.1) mmol/L Chloride (98-107) mmol/L Carbon Dioxide (22-30) mmol/L Anion Gap mmol/L BUN (9-20) mg/dL Creatinine (0.66-1.25) mg/dL Est GFR (CKD-EPI)AfAm (>60 ml/min/1.73 sqM) Est GFR (CKD-EPI)NonAf (>60 ml/min/1.73 sqM) Glucose (74-99) mg/dL Plasma Lactic Acid Quan 1.0 (0.7-2.0) mmol/L Calcium (8.4-10.2) mg/dL Phosphorus (2.5-4.5) mg/dL Magnesium (1.6-2.3) mg/dL Total Bilirubin (0.2-1.3) mg/dL AST (17-59) U/L ALT (4-49) U/L Alkaline Phosphatase (38-126) U/L Troponin I <0.012 (0.000-0.034) ng/mL NT-Pro-B Natriuret Pep pg/mL Total Protein (6.3-8.2) g/dL Albumin (3.5-5.0) g/dL - EKG Data -: EKG Interpreted by Me (EKG is A-fib 49 QRS 82 QTc 406) - Radiology Data Radiology results: report reviewed (Ultrasound left lower extremity positive DVT), image reviewed Disposition Clinical Impression: Left leg DVT Disposition: ADMITTED IP TO THIS [facility] Condition: Fair Is patient prescribed a controlled substance at d/c from ED?: No Referrals: Sahil Acosta MD [Primary Care Provider] - 1-2 days Time of Disposition: 23:55
[2024-09-23 23:12] LABS: ALT 14 U/L (4-49); AST 26 U/L (17-59); African American GFR (CKD) >90 (>60 ml/min/1.73 sqM); Albumin 3.3 g/dL (3.5-5.0); Alkaline Phosphatase 98 U/L (38-126); Anion Gap 5 mmol/L; Blood Urea Nitrogen 22 mg/dL (9-20); Calcium 8.6 mg/dL (8.4-10.2); Carbon Dioxide 28 mmol/L (22-30); Chloride 97 mmol/L (98-107); Glucose 111 mg/dL (74-99); Magnesium 2.4 mg/dL (1.6-2.3); Non-African American GFR(CKD) 84 (>60 ml/min/1.73 sqM); Phosphorus 3.4 mg/dL (2.5-4.5); Potassium 4.9 mmol/L (3.5-5.1); Sodium 130 mmol/L (137-145); Total Bilirubin 0.7 mg/dL (0.2-1.3); Total Protein 5.4 g/dL (6.3-8.2)
[2024-09-23 23:20] LABS: NT-Pro-B-Type Natriuretic Pept 3210 pg/mL
[2024-09-23 23:22] LABS: Basophils # (A) 0.06 10*3/uL (0.00-0.10); Basophils % (A) 0.2 %; Eosinophils # (A) 0.04 10*3/uL (0.04-0.35); Eosinophils % (A) 0.1 %; HCT 33.4 % (39.6-50.0); Lymphocytes % (A) 82.7 %; MCH 31.7 pg (27.0-32.0); MCHC 32.9 g/dL (32.0-37.0); MCV 96.3 fL (80.0-97.0); Mean Platelet Volume 9.3 fL (9.5-12.2); Monocytes # (A) 0.54 10*3/uL (0.20-1.00); Monocytes % (A) 1.7 %; Neutrophils # (A) 4.69 10*3/uL (1.80-7.70); Neutrophils % (A) 15.1 %; RBC 3.47 10*6/uL (4.40-5.60); RDW 14.6 % (11.5-14.5); WBC 31.06 10*3/uL (4.50-10.00)
[2024-09-23 23:34] LABS: Prothrombin Time 11.5 sec (10.0-12.5)
[2024-09-23 23:46] LABS: Lymphocytes # (A) 25.68 10*3/uL (0.90-5.00)
[2024-09-23 23:47] LABS: Platelet Count 192 10*3/uL (140-440)
[2024-09-23 23:48] LABS: Partial Thromboplastin Time 21.3 sec (22.0-30.0)
[2024-09-24] MEDS ORDERED: ONDANSETRON 4 MG/2 ML VIAL IVP PRN
[2024-09-24] MEDS ORDERED: NALOXONE 0.4 MG/ML 1 ML VIAL IV PRN
[2024-09-24] MEDS: HEPARIN SODIUM 1,000 UN/ML (10ML VL) IV ONE (01:26)
[2024-09-24] MEDS: HEPARIN SOD,PORK IN 0.45% NACL 25,000 UNIT in 0.45% NACL 1 250ML.BAG IV SCH (01:28)
[2024-09-24] MEDS: PANTOPRAZOLE 40 MG/10 ML VIAL IV SCH (01:37)
--- NOTE | 2024-09-24 03:24 | US ---
EXAM: US Duplex Left Lower Extremity Veins CLINICAL HISTORY: ITS.REASON US Reason: dvt TECHNIQUE: Real-time duplex ultrasound scan of the left lower extremity veins integrating B-mode two-dimensional vascular structure, Doppler spectral analysis, color flow Doppler imaging and compression. COMPARISON: No relevant prior studies available. FINDINGS: Occlusive thrombus in the posterior tibial vein. IMPRESSION: Occlusive thrombus in the posterior tibial vein.
--- NOTE | 2024-09-24 03:25 | XR ---
EXAM: XR Left Foot CLINICAL HISTORY: ITS.REASON XR Reason: pain TECHNIQUE: Frontal, lateral views of the left foot. COMPARISON: No relevant prior studies available. FINDINGS: Bones/joints: No acute fracture. No dislocation. Soft tissues: Unremarkable. No radiopaque foreign body. IMPRESSION: No acute osseous abnormalities.
--- NOTE | 2024-09-24 03:26 | XR ---
EXAM: XR Left Ankle Complete, 3 or More Views CLINICAL HISTORY: ITS.REASON XR Reason: pain TECHNIQUE: Frontal, lateral and oblique views of the left ankle. COMPARISON: No relevant prior studies available. FINDINGS: Bones/joints: No acute fracture. No dislocation. Soft tissues: Calcified vessels. IMPRESSION: No acute osseous abnormalities.
[2024-09-24 03:27] LABS: RBC Morphology Normal
[2024-09-24] MEDS: SODIUM CHLORIDE 0.9% 1,000 ML IV SCH (04:04)
[2024-09-24] MEDS: HYDROmorphone 1 MG/ML 1 ML SYRINGE IVP PRN (06:15)
[2024-09-24] MEDS ORDERED: ACETAMINOPHEN TAB 325 MG TAB PO PRN (10:20)
[2024-09-24] MEDS: prednisoLONE ACETATE 1% OPHTH DROPS 5 ML BTL BOTH EYES SCH (11:34)
[2024-09-24 18:05] VITALS: BMI 18.8
[2024-09-24] MEDS: LATANOPROST 0.005% OPHTH DROPS 2.5 ML BTL BOTH EYES SCH (20:28)
[2024-09-24] MEDS: DOCUSATE 100 MG CAP PO SCH (20:28)
[2024-09-24] MEDS: KETOTIFEN 0.025% OPHTH DROPS 5 ML BTL BOTH EYES SCH (20:29)
[2024-09-24] MEDS: HYDROCORTISONE 1% CREAM 30 GM TUBE TOPICAL SCH (20:29)
[2024-09-24] MEDS ORDERED: NON FORMULARY DRUG (Omeprazole [Omeprazole] 20 MG Capsule.Dr) PO SCH (21:00)
[2024-09-24] MEDS ORDERED: LATANOPROST 0.005% OPHTH DROPS 2.5 ML BTL BOTH EYES SCH (21:00)
[2024-09-25] MEDS: HYDROcodone/APAP 5-325MG 1 EACH TAB PO PRN (00:50)
--- NOTE | 2024-09-25 03:06 | HP ---
HISTORY AND PHYSICAL ADMITTING SUMMARY CHIEF COMPLAINT: Pain and swelling in the left lower leg, foot and ankle. HISTORY OF PRESENT ILLNESS: This is another admission for this 89-year-old white male. He has a history of CML. He recently fell and underwent a left hip ORIF. He is stabilized and sent to the intermediate. He states that over the last several days, he has had progressive pain and swelling in the left lower leg and that, "nobody would help him." Finally, nurse called an ambulance and sent him to the hospital. This would appear to be a phlebolith thrombosis. It is mostly from the knee down. He has pain, swelling and tenderness in the calf. He has had no fever, chills, shortness of breath, chest pain, etc. Past medical history, family history and personal and social histories are all otherwise unremarkable or noncontributory. PHYSICAL EXAMINATION: VITAL SIGNS: Normal. He is dehydrated. CHEST: Clear. CARDIAC: Demonstrates his atrial fibrillation. ABDOMEN: Soft and nontender. EXTREMITIES: Reveal the left leg to be edematous and is somewhat tense from the knee down. There is no redness. There is venous congestion in the foot, but there is good capillary refill. Right leg is unremarkable. NEUROLOGICAL: He is intact. He is admitted to the hospital. DIAGNOSES: 1. Deep vein thrombosis in the left lower extremity. 2. Dehydration. 3. Recent ORIF of the left hip. 4. Chronic myeloid leukemia. 5. Atrial fibrillation. PLAN: 1. Bed rest. 2. Elevation of the leg. 3. Consult Vascular Surgery. 4. Continue on heparin for anticoagulation. MMODL / IJN: [id number] /
--- NOTE | 2024-09-25 07:32 | P.GSCN ---
History of Present Illness Consult date: 09/24/24 Reason for Consult: DVT Requesting physician: Sahil Acosta History of present illness: This is a pleasant 89-year-old male who recently underwent left hip hemiarthroplasty with Dr. Hernandez on 08/31/2024. Patient had presented yesterday to the emergency department with complaints of left foot and ankle pain, swelling and bruising. He had a x-ray of the left foot and ankle with no acute findings. He had a venous duplex of the left lower extremity that was positive for posterior tibial vein thrombus in the left lower extremity. Vascular surgery was consulted for further management. Currently on IV heparin drip. Patient states that he has discomfort in his left lower extremity near the ankle and foot. Denies any injury or falling recently. States he has had significant bruising all the way down his leg since he had his hip surgery. Reported past medical history includes atrial fibrillation not on anticoagulation, GERD, iron deficiency anemia and recent left hip surgery. Review of Systems A 14 point review systems was completed all pertinent positives and negatives as stated in the HPI. Past Medical History Past Medical History: Atrial Fibrillation, Cancer, Eye Disorder, GERD/Reflux Additional Past Medical History / Comment(s): CLL, iron deficiency anemia - receives iron infusions, gastric ulcer, bilateral glaucoma, BPH with surgery, sinus issues, gait imbalance at times - uses no assistive device History of Any Multi-Drug Resistant Organisms: None Reported Past Surgical History: Cholecystectomy, Hernia Repair, Prostate Surgery Additional Past Surgical History / Comment(s): EGDs/colonoscopies, hemigastrectomy d/t ulcer, TURP, inguinal hernia surgery-laterallity unknown, bilateral cornea transplant/cataracts removed, L knee arthroscopy, L hip sx. Past Anesthesia/Blood Transfusion Reactions: Postoperative Nausea & Vomiting (PONV) Additional Past Anesthesia/Blood Transfusion Reaction / Comm: Pt states he has endured some nausea/vomiting after anesthesia. Past Psychological History: No Psychological Hx Reported Smoking Status: Never smoker Past Alcohol Use History: None Reported Additional Past Alcohol Use History / Comment(s): Pt smoked for a short period of time, [id number]. Past Drug Use History: None Reported - Past Family History Father History Unknown: Yes Family Medical History: Respiratory Disorder Additional Family Medical History / Comment(s): Father had "lung problems from smoking." Mother History Unknown: Yes Family Medical History: Dementia Medications and Allergies Home Medications Medication Instructions Recorded Confirmed Type Omeprazole 20 mg PO HS 03/24/15 09/24/24 History Bimatoprost [Lumigan 0.01% Ophth 1 drop BOTH EYES HS 12/13/22 09/24/24 History Soln] Aspirin 81 mg PO BID #60 tab 09/01/24 09/24/24 Rx Docusate [Colace] 100 mg PO BID #60 capsule 09/01/24 09/24/24 Rx HYDROcodone/APAP 5-325MG [[place] 1 - 2 tab PO Q6HR PRN #18 tab 09/01/24 09/24/24 Rx 5-325] Ketotifen 0.025% Ophth Soln 1 drops BOTH EYES BID ml 09/06/24 09/24/24 Rx [Zaditor] Latanoprost Ophth [Xalatan 0.005%] 1 drops BOTH EYES HS ml 09/06/24 09/24/24 Rx Acetaminophen Tab [Tylenol] 650 mg PO Q6HR PRN 09/24/24 09/24/24 History Hydrocortisone 2.5% Lotion 1 applic TOPICAL BID 09/24/24 09/24/24 History Magic Cup 100 ml PO BID 09/24/24 09/24/24 History Naloxone HCl 4 mg NS DIRECTED PRN 09/24/24 09/24/24 History Tamsulosin [Flomax] 0.4 mg PO DAILY 09/24/24 09/24/24 History prednisoLONE ACETATE 1% OPHTH 1 drops BOTH EYES MO 09/24/24 09/24/24 History [Pred Forte 1%] Allergies Allergy/AdvReac Type Severity Reaction Status Date / Time No Known Allergies Allergy Verified 09/24/24 08:16 Surgical - Exam Vital Signs Temp Pulse Resp BP Pulse Ox 98 F 48 L 18 118/66 100 09/23/24 21:56 09/23/24 21:56 09/23/24 21:56 09/23/24 21:56 09/23/24 21:56 General appearance: The patient is alert, oriented, appears in no acute distress. Hard of hearing. HET: Head is normocephalic and atraumatic. Pupils are equal and reactive. Neck: Supple. Heart: Regular. Lungs: Equal expansion, normal respiratory effort. Abdomen: Soft, nontender, nondistended. Extremities: Left lower extremity warm to the touch. Lower extremity edema, there is bruising down the left lower extremity, with bruising of the left foot and surrounding ankle as well as bruising noted plantar aspect under toes and ball of foot. Good capillary refill. Warm to the touch. Palpable PT and DP pulse. Sensorimotor intact. Neurological: Alert and oriented. Results - Labs 09/23/24 22:28 09/23/24 22:28 Abnormal Lab Results - Last 24 Hours (Table) 09/23/24 09/23/24 09/23/24 Range/Units 22:28 22:28 22:28 WBC 31.06 H (4.50-10.00) 10*3/uL RBC 3.47 L (4.40-5.60) 10*6/uL Hgb 11.0 L (13.0-17.0) g/dL Hct 33.4 L (39.6-50.0) % MPV 9.3 L (9.5-12.2) fL Immature Gran # 0.05 H (0.00-0.04) 10*3/uL Lymphocytes # 25.68 H (0.90-5.00) 10*3/uL APTT 21.3 L (22.0-30.0) sec D-Dimer 5.14 H (<0.60) mg/L FEU Sodium 130 L (137-145) mmol/L Chloride 97 L (98-107) mmol/L BUN 22 H (9-20) mg/dL Glucose 111 H (74-99) mg/dL Magnesium 2.4 H (1.6-2.3) mg/dL Total Protein 5.4 L (6.3-8.2) g/dL Albumin 3.3 L (3.5-5.0) g/dL 09/24/24 Range/Units 07:08 WBC (4.50-10.00) 10*3/uL RBC (4.40-5.60) 10*6/uL Hgb (13.0-17.0) g/dL Hct (39.6-50.0) % MPV (9.5-12.2) fL Immature Gran # (0.00-0.04) 10*3/uL Lymphocytes # (0.90-5.00) 10*3/uL APTT 41.3 H (22.0-30.0) sec D-Dimer (<0.60) mg/L FEU Sodium (137-145) mmol/L Chloride (98-107) mmol/L BUN (9-20) mg/dL Glucose (74-99) mg/dL Magnesium (1.6-2.3) mg/dL Total Protein (6.3-8.2) g/dL Albumin (3.5-5.0) g/dL Diabetes panel 09/23/24 Range/Units 22:28 Sodium 130 L (137-145) mmol/L Potassium 4.9 (3.5-5.1) mmol/L Chloride 97 L (98-107) mmol/L Carbon Dioxide 28 (22-30) mmol/L BUN 22 H (9-20) mg/dL Creatinine 0.70 (0.66-1.25) mg/dL Glucose 111 H (74-99) mg/dL Calcium 8.6 (8.4-10.2) mg/dL AST 26 (17-59) U/L ALT 14 (4-49) U/L Alkaline Phosphatase 98 (38-126) U/L Total Protein 5.4 L (6.3-8.2) g/dL Albumin 3.3 L (3.5-5.0) g/dL Calcium panel 09/23/24 Range/Units 22:28 Calcium 8.6 (8.4-10.2) mg/dL Phosphorus 3.4 (2.5-4.5) mg/dL Albumin 3.3 L (3.5-5.0) g/dL Pituitary panel 09/23/24 Range/Units 22:28 Sodium 130 L (137-145) mmol/L Potassium 4.9 (3.5-5.1) mmol/L Chloride 97 L (98-107) mmol/L Carbon Dioxide 28 (22-30) mmol/L BUN 22 H (9-20) mg/dL Creatinine 0.70 (0.66-1.25) mg/dL Glucose 111 H (74-99) mg/dL Calcium 8.6 (8.4-10.2) mg/dL Adrenal panel 09/23/24 Range/Units 22:28 Sodium 130 L (137-145) mmol/L Potassium 4.9 (3.5-5.1) mmol/L Chloride 97 L (98-107) mmol/L Carbon Dioxide 28 (22-30) mmol/L BUN 22 H (9-20) mg/dL Creatinine 0.70 (0.66-1.25) mg/dL Glucose 111 H (74-99) mg/dL Calcium 8.6 (8.4-10.2) mg/dL Total Bilirubin 0.7 (0.2-1.3) mg/dL AST 26 (17-59) U/L ALT 14 (4-49) U/L Alkaline Phosphatase 98 (38-126) U/L Total Protein 5.4 L (6.3-8.2) g/dL Albumin 3.3 L (3.5-5.0) g/dL - Imaging Comments: Occlusive thrombus in the posterior tibial vein Assessment and Plan Assessment: 1. Left lower extremity acute DVT 2. Recent left hip surgery 3. Left foot pain 4. Leukocytosis Plan: 1. Continue IV heparin drip for now until further evaluated by orthopedics 2. Consult to orthopedic surgeon for left foot pain and ecchymosis following left hip surgery 3. Apply MARTIN hose to left lower extremity and elevate left lower extremity 4. May transition to oral anticoagulation of your choice when cleared by orthopedics 5. There is no vascular surgical intervention indicated. Provoked DVT requiring at least 3 months anticoagulation. 6. Rest of medical management per primary medical team Thank you for this consultation. The impression and plan of care has been dictated as directed. Dr. Benítez I performed a history and examination of this patient, discussed the same with the dictator. I agree with the dictator's note ,documented as a scribe. Any additional findings or plans will be noted.
[2024-09-25] MEDS: HEPARIN SODIUM 1,000 UN/ML (10ML VL) IV PRN (08:08)
--- NOTE | 2024-09-25 09:36 | P.PN ---
Subjective Progress Note Date: 09/25/24 Principal diagnosis: DVT Patient is seen and examined today as a follow-up for provoked left lower extremity deep vein thrombosis. He has been on a IV heparin drip. He was just seen and evaluated by orthopedics who state there is no intention for any surgical procedures. They cleared him to transition to oral anticoagulation. Patient denies any blood in his stool or black stool. He is up ambulating in the hallway with a walker with physical therapy and Occupational Therapy. Pain improved to the left foot. Objective - Vital Signs Vital signs: Vital Signs Temp 98.5 F 09/25/24 07:07 Pulse 50 L 09/25/24 07:07 Resp 15 09/25/24 07:07 BP 121/53 09/25/24 07:07 Pulse Ox 98 09/25/24 08:05 FiO2 21 09/25/24 08:05 Intake & Output 09/24/24 09/25/24 09/25/24 18:59 06:59 18:59 Intake Total 226.961 93.711 Output Total 750 1250 Balance -750 -1023.039 93.711 Weight 58.06 kg Intake: Intake, IV Titration 226.961 93.711 Amount Heparin Sod,Pork in 0.45% 226.961 93.711 NaCl 25,000 unit In 0.45 % NaCl 1 250ml.bag @ 18 UNITS/KG/HR 10.451 mls/hr IV .[id number] [facility] Rx#: [id number] Output: Urine 750 1250 Other: Voiding Method External Catheter # Voids 1 # Bowel Movements 0 1 - Exam General appearance: The patient is alert, oriented, appears in no acute distress. HET: Head is normocephalic and atraumatic. Pupils are equal and reactive. Neck: Supple. Heart: Regular. Lungs: Equal expansion, normal respiratory effort. Abdomen: Soft, nondistended. Extremities: Left lower extremity edema, improved. MARTIN hose in place. Ecchymosis surrounding left foot and ankle. Neurological: No focal deficits. Strength and sensation are grossly intact. - Labs CBC & Chem 7: 09/23/24 22:28 09/23/24 22:28 Labs: Abnormal Lab Results - Last 24 Hours (Table) 09/25/24 Range/Units 05:50 APTT 36.2 H (22.0-30.0) sec Assessment and Plan Assessment: 1. Provoked left lower extremity acute DVT 2. Recent left hip surgery 3. Left foot pain 4. Leukocytosis Plan: 1. Transition to oral Eliquis for DVT. Discontinue heparin drip. 2. Consult to orthopedic surgeon for left foot pain and ecchymosis following left hip surgery, orthopedics cleared patient for oral anticoagulation. No plans for any surgical intervention. 3. Apply MARTIN hose to left lower extremity and elevate left lower extremity 4. There is no vascular surgical intervention indicated. Provoked DVT requiring at least 3 months anticoagulation. 5. Rest of medical management per primary medical team Thank you for this consultation. Patient is cleared from vascular surgery for discharge. The impression and plan of care has been dictated as directed. Dr. Benítez I performed a history and examination of this patient, discussed the same with the dictator. I agree with the dictator's note ,documented as a scribe. Any additional findings or plans will be noted.
[2024-09-25] MEDS: TAMSULOSIN 0.4 MG CAP.ER.24H PO SCH (09:50)
[2024-09-25 10:17] LABS: HCT 33.5 % (39.6-50.0); HGB 10.4 g/dL (13.0-17.0); MCH 30.7 pg (27.0-32.0); MCV 98.8 FL (80.0-97.0); NRBC Per 100 WBC 0 X 10*3/uL (0.00-0.01); Platelet Count 180 X 10*3/uL (140-440); RBC 3.39 X 10*6/uL (4.40-5.60); RDW 14.4 % (11.5-14.5); WBC 29.79 X 10*3/uL (4.50-10.00)
[2024-09-25 10:31] LABS: ALT 13 U/L (10-49); AST 19 U/L (14-35); Albumin 3.1 g/dL (3.8-4.9); Albumin/Globulin Ratio 2.07 Ratio (1.60-3.17); Alkaline Phosphatase 109 U/L (41-126); BUN/Creat Ratio 17.14 Ratio (12.00-20.00); Calcium 8.3 mg/dL (8.7-10.3); Carbon Dioxide 26.6 mmol/L (21.6-31.8); Chloride 100 mmol/L (96-109); Globulin 1.5 g/dL (1.6-3.3); Glucose 92 mg/dL (70-110); Magnesium 2.2 mg/dL (1.5-2.4); Phosphorus 2.8 mg/dL (2.4-5.1); Potassium 4.9 mmol/L (3.5-5.5); Sodium 135 mmol/L (135-145); Total Bilirubin 0.5 mg/dL (0.3-1.2); Total Protein 4.6 g/dL (6.2-8.2)
[2024-09-25 11:10] LABS: Basophils # (M) 0 X 10*3/uL (0.00-0.10); Eosinophils # (M) 0 X 10*3/uL (0.04-0.35); Lymphocytes # (M) 25.62 X 10*3/uL (0.90-5.00); Monocytes # (M) 0.89 X 10*3/uL (0.20-1.00); Neutrophils # (M) 3.28 X 10*3/uL (1.80-7.70); Neutrophils % (M) 11 %; RBC Morphology Normal (Normal)
[2024-09-25] MEDS: Apixaban Initiation Dose--VTE 5 MG TAB PO SCH (11:53)
--- NOTE | 2024-09-25 21:18 | P.CNOR ---
History of Present Illness - HPI Consult date: 09/25/24 History of present illness: This is a pleasant 89-year-old male with PMH of A-fib but has not been taking Eliquis or any other blood thinners in several months secondary to a GI bleed, who is status post left hip hemiarthroplasty for left subcapital femoral neck fracture with Dr. Hernandez on 08/31/2024 and is a resident of [facility]. Patient presented on 09/23/2024 to the [facility] emergency department with complaints of atraumatic left foot and ankle pain, swelling and bruising. He had a x-ray of the left foot and ankle with no acute osseous deformities. He had a venous duplex of the left lower extremity that was positive for posterior tibial vein thrombus in the left lower extremity. Patient was admitted to medicine and vascular and orthopedics were consulted. He is currently being treated with heparin. Patient states that he has pain and discomfort in the left ankle and foot, but his pain is controlled. Patient denies any left hip pain. The patient denied any recent fall or injury to the left ankle or foot. [facility] without left hip pain. He stated his left ankle and foot has had bruising since shortly after his left hip surgery for left hip fracture. Past Medical History Past Medical History: Atrial Fibrillation, Cancer, Eye Disorder, GERD/Reflux Additional Past Medical History / Comment(s): CLL, iron deficiency anemia - receives iron infusions, gastric ulcer, bilateral glaucoma, BPH with surgery, sinus issues, gait imbalance at times - uses no assistive device History of Any Multi-Drug Resistant Organisms: None Reported Past Surgical History: Cholecystectomy, Hernia Repair, Prostate Surgery Additional Past Surgical History / Comment(s): EGDs/colonoscopies, hemigastrect nuha d/t ulcer, TURP, inguinal hernia surgery-laterallity unknown, bilateral cornea transplant/cataracts removed, L knee arthroscopy, L hip sx. Past Anesthesia/Blood Transfusion Reactions: Postoperative Nausea & Vomiting (PONV) Additional Past Anesthesia/Blood Transfusion Reaction / Comm: Pt states he has endured some nausea/vomiting after anesthesia. Past Psychological History: No Psychological Hx Reported Smoking Status: Never smoker Past Alcohol Use History: None Reported Additional Past Alcohol Use History / Comment(s): Pt smoked for a short period of time, [id number]. Past Drug Use History: None Reported - Past Family History Father History Unknown: Yes Family Medical History: Respiratory Disorder Additional Family Medical History / Comment(s): Father had "lung problems from smoking." Mother History Unknown: Yes Family Medical History: Dementia Medications and Allergies Home Medications Medication Instructions Recorded Confirmed Type Omeprazole 20 mg PO HS 03/24/15 09/24/24 History Bimatoprost [Lumigan 0.01% Ophth 1 drop BOTH EYES HS 12/13/22 09/24/24 History Soln] Aspirin 81 mg PO BID #60 tab 09/01/24 09/24/24 Rx Docusate [Colace] 100 mg PO BID #60 capsule 09/01/24 09/24/24 Rx HYDROcodone/APAP 5-325MG [[place] 1 - 2 tab PO Q6HR PRN #18 tab 09/01/24 09/24/24 Rx 5-325] Ketotifen 0.025% Ophth Soln 1 drops BOTH EYES BID ml 09/06/24 09/24/24 Rx [Zaditor] Latanoprost Ophth [Xalatan 0.005%] 1 drops BOTH EYES HS ml 09/06/24 09/24/24 Rx Acetaminophen Tab [Tylenol] 650 mg PO Q6HR PRN 09/24/24 09/24/24 History Hydrocortisone 2.5% Lotion 1 applic TOPICAL BID 09/24/24 09/24/24 History Magic Cup 100 ml PO BID 09/24/24 09/24/24 History Naloxone HCl 4 mg NS DIRECTED PRN 09/24/24 09/24/24 History Tamsulosin [Flomax] 0.4 mg PO DAILY 09/24/24 09/24/24 History prednisoLONE ACETATE 1% OPHTH 1 drops BOTH EYES MO 09/24/24 09/24/24 History [Pred Forte 1%] Allergies Allergy/AdvReac Type Severity Reaction Status Date / Time No Known Allergies Allergy Verified 09/24/24 08:16 Physical Examination Patient was examined at bedside. Patient is resting comfortably in bed. No apparent distress. They are awake, alert and able to answer questions. Inspection: The left hip surgical incision is healing with no signs of drainage or erythema. There is diffuse left leg edema and ecchymosis. Palpation: Left lower extremity is warm to the touch. Diffuse tenderness over the left foot soft tissue. No localized tenderness to the bony prominences of the left knee, leg, ankle, foot. Neurovascular: Left femoral nerve function is grossly intact. The patient is able to actively plantarflex and dorsiflex their operative ankle and toes. Operative extremity sensation is intact to light touch throughout. Their left foot appears well perfused, palpable dorsalis pedis pulse, and capillary refill under 2 seconds. Results - Labs Labs: Abnormal Lab Results - Last 24 Hours (Table) 09/25/24 Range/Units 05:50 APTT 36.2 H (22.0-30.0) sec H & H 09/23/24 Range/Units 22:28 Hgb 11.0 L (13.0-17.0) g/dL Hct 33.4 L (39.6-50.0) % Coagulation 09/23/24 Range/Units 22:28 INR 1.0 (<1.2) Result Diagrams: 09/23/24 22:28 09/23/24 22:28 Assessment and Plan Assessment: 1. Left lower extremity acute DVT 2. status post left hip hemiarthroplasty for left subcapital femoral neck fracture with Dr. Hernandez on 08/31/2024 3. Left foot pain 4. Left ankle pain Plan: Left hip: No plans for acute orthopedic surgical intervention. Weight-bear as tolerated. Left hip surgical incision: Leave open to air. Left foot and ankle pain: 09/24/24 left ankle xrays reviewed, no acute osseous deformtiy. 09/24/24 left foot xrays reviewed, no acute osseous deformity. 09/24/2024 left lower extremity venous doppler that was positive for posterior tibial vein thrombus in the left lower extremity. No plans for acute orthopedic surgical intervention. Weight-bear as tolerated. Medical management per primary medical team Thank you for this consultation.
--- NOTE | 2024-09-25 23:03 | PN ---
PROGRESS NOTE DATE OF SERVICE: 09/25/2024 CHIEF COMPLAINT: Left lower extremity phlebolith thrombosis. HISTORY OF PRESENT ILLNESS: This gentleman is doing well. Since the leg is wrapped, feels better and he can now feel his foot again. PHYSICAL EXAMINATION: EXTREMITIES: There is good capillary refill of the foot. The edema in the foot and lower leg are being managed with his Rc wraps. CARDIAC: Unchanged. IMPRESSION: 1. Deep vein thrombosis of the left lower extremity. 2. Recent left hip ORIF. 3. Atrial fibrillation. 4. Chronic myeloid leukemia. PLAN: Increase activity and start to consider discharge planning. MMODL / IJN: [id number] /
--- NOTE | 2024-09-26 17:02 | DS ---
DISCHARGE SUMMARY CHIEF COMPLAINT: Pain and swelling in the left lower leg and foot. HISTORY OF PRESENT ILLNESS AND PHYSICAL EXAMINATION: Details of this man's history and physical can be found in the initial workup. LABORATORY STUDIES: While he was in the hospital, he had laboratory studies, details of which can be found in the laboratory section of his chart. COURSE IN THE HOSPITAL: After admission, he was placed on bedrest, started on intravenous fluids with elevation of the left leg and heparin as well as analgesics. He was seen by Vascular Surgery. It was determined that this was edema and phlebothrombosis consistent with his left hip fracture and surgery. Swelling subsided with elastic stocking and he was placed back on apixaban. It was felt he could return to the halfway on the . FINAL DIAGNOSES: 1. Deep vein thrombosis of the lower left leg. 2. Pain in the left foot due to edema. 3. Status post ORIF of the left hip. 4. History of atrial fibrillation. 5. Chronic lymphocytic leukemia. OPERATIONS: None. CONSULTATIONS: Vascular Surgery. He is improved. MMODL / MARCEN: [id number] /
[2024-09-27 14:07] VITALS: BP 121/55; PULSE 51; RESP 20; TEMP 97.6
--- NOTE | 2024-09-28 01:15 | PN ---
PROGRESS NOTE DATE OF SERVICE: 09/27/2024 CHIEF COMPLAINT: DVT of left leg. HISTORY OF PRESENT ILLNESS: This gentleman is doing well. He waits to return to the skilled nursing. PHYSICAL EXAMINATION: VITAL SIGNS: Normal. CHEST: Clear. CARDIAC: Normal. IMPRESSION: 1. DVT of the left leg. 2. Status post ORIF of the left hip. 3. CLL. PLAN: Discharge back to skilled nursing probably today. MMODL / IJN: [id number] /
== END 2024-09-27 16:08 ==
LOC: EC 21:52 → INTOOBSV 09-24 00:02 → 4SSUR 09-24 00:02
PROVIDERS: ADMIT Family Medicine; ATTEND Family Medicine
DX: I82.442 Acute embolism and thrombosis of left tibial vein (principal); M79.672 Pain in left foot; M25.572 Pain in left ankle and joints of left foot; E86.0 Dehydration; C92.10 Chronic myeloid leukemia, BCR/ABL-positive, not having achieved remission; C91.10 Chronic lymphocytic leukemia of B-cell type not having achieved remission; I48.91 Unspecified atrial fibrillation; K21.9 Gastro-esophageal reflux disease without esophagitis; N40.0 Benign prostatic hyperplasia without lower urinary tract symptoms; Z98.890 Other specified postprocedural states; Z79.82 Long term (current) use of aspirin; Z79.899 Other long term (current) drug therapy
CPT/HCPCS: 96376 ×3; 96366 ×2; 96375 ×2; 96365; 99285; 36415; 94760; 93005; 97116; 97162; 97166; 85379; 83880; 80053 ×2; 83605; 83735 ×2; 84100 ×2; 84550; 84484; 85025 ×2; 85610; 85730 ×3; 73610; 73620; 93971; G0378 ×4; J1644 ×3; J1171; J2470